=== PATIENT | female | born 1995 | race Caucasian/White ===

== ENCOUNTER 2020-09-19 14:48 | Emergency (ER) | payer BC, SELFPAY ==
[2020-09-19 15:03] VITALS: BP 121/70; PULSE 65; RESP 18; TEMP 36.8; O2SAT 99
--- NOTE | 2020-09-19 15:27 | ED.FEMALEGU ---
HPI - Female Genitourinary General Chief complaint: Urogenital-Female Stated complaint: possibe uti Source: patient and RN notes reviewed Mode of arrival: ambulatory History of Present Illness HPI Narrative: This is a 25-year-old white female who presented today with complaints of urgency, frequency and burning during urination. According to patient she has developed symptoms this morning. She normally goes to her [facility] but they closed today at 12:00. She does note that she has a history of having frequent urinary tract infections. The symptoms that she is feeling today is similar to those that she has had in the past. The patient denies SOB, CP, palpitation, extremity numbness, lightheadedness, dizziness, constipation, diarrhea, abdominal pain ,CVA tenderness , hematuria ,chills, or fever. 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 HEAD: normocephalic, atraumatic. EYES: PERRL. Sclera clear/white. Vision is grossly intact. EARS: External ears normal, auditory canals clear and without drainage, TMs normal without perforation. Hearing grossly intact. NOSE: External nose normal with no obvious nasal discharge, nares without redness, no rhinorrhea. THROAT: Mucous membranes moist, posterior pharynx clear. NECK: Neck supple, non-tender without lymphadenopathy, masses or thyromegaly. CARDIOVASCULAR: Regular rate and rhythm without murmurs, gallops, or rubs. RESPIRATORY: Clear to auscultation. Breath sounds equal bilaterally. No wheezes, rales, or rhonchi. GASTROINTESTINAL: Abdomen soft, non-tender, nondistended. Bowel sounds are active. No hepato-splenomegaly, or palpable masses. No guarding. SKIN: warm, intact with no suspicious lesions or rash, good texture and turgor. NEURO: awake, alert, and oriented to person, place and time. There were no obvious focal neurologic abnormalities. Steady gait EXTREMITIES: Normal range of motion. No edema. No calf tenderness. Negative Homans sign bilaterally. BACK: Nontender without deformity or crepitance. No flank tenderness. Course Vital Signs Vital signs: Vital Signs Temperature 98.3 F 09/19/20 15:03 Pulse Rate 65 09/19/20 15:03 Respiratory Rate 18 09/19/20 15:03 Blood Pressure 121/70 09/19/20 15:03 Pulse Oximetry 99 09/19/20 15:03 Temperature 98.3 F 09/19/20 15:03 Pulse Rate 65 09/19/20 15:03 Respiratory Rate 18 09/19/20 15:03 Blood Pressure 121/70 09/19/20 15:03 Pulse Oximetry 99 09/19/20 15:03 MDM - Female Genitourinary Differential Diagnosis Differential diagnosis: Likely urinary tract infection and vaginitis Lab Data Attestation: I reviewed the patient's lab results. Lab results narrative: Will be treated for urinary tract infection with a culture sent off Labs: Urine Glucose Negative Reference Range: Negative Urine Bilirubin Negative Reference Range: Negative Urine Ketone Negative Reference Range: Negative Urine Specific [place] 1.010
== END 2020-09-19 15:39 | disposition home or self-care (01) ==
PROVIDERS: Emergency Provider Nurse Practitioner; PCP Family Medicine
DX: N39.0 Urinary tract infection, site not specified (principal)
CPT/HCPCS: 81003; 87077; 87086; 87088; 87186; 99213; G0463

== ENCOUNTER 2020-10-09 06:54 | Outpatient (NON) | payer BC, SELFPAY ==
[2020-10-09 21:57] LABS: SARS-CoV-2 RNA PCR Negative
== END 2020-10-09 06:55 ==
PROVIDERS: PCP Family Medicine; Visit Provider Family Medicine
DX: Z20.822 Contact with and (suspected) exposure to COVID-19 (principal); J02.9 Acute pharyngitis, unspecified; R09.89 Other specified symptoms and signs involving the circulatory and respiratory systems; R51.9 Headache, unspecified
CPT/HCPCS: C9803; U0003; U0005

== ENCOUNTER 2021-05-11 19:03 | Emergency (ER) | payer OTHER, SELFPAY ==
--- NOTE | ~2021-05-11 | CT_ITS ---
EXAMINATION: CT brain wo con DATE: 05/11/2021 19:40 INDICATION: Head injury. Loss of consciousness. TECHNIQUE: Computed tomography (CT) of the head was performed without intravenous contrast. The mA wa s adjusted according to patient size. Iterative reconstruction technique was employed. The dose-lengt h product was 605.33 mGy-cm. COMPARISON: None FINDINGS: There is no intracranial hemorrhage, acute infarction, or abnormal intracranial mass lesion . The ventricles are normal in size. There is mild mucosal thickening in the ethmoid sinuses. The mas toid air cells are normal. IMPRESSION: 1. Normal brain. Reviewed, dictated and finalized at location A. IMPRESSION: 1. Normal brain.
[2021-05-11 19:04] VITALS: BP 146/84; PULSE 53; RESP 17; TEMP 36.6; O2SAT 100
--- NOTE | 2021-05-11 20:43 | ED.HEATRA ---
HPI - Head Injury General Chief complaint: Head Injury Stated complaint: FALL/+ LOC, 24 HRS AGO Time Seen by Provider: 05/11/21 20:40 History of Present Illness HPI Narrative: healthy 26 yo female presnets to the ED after a head injury. She reports that she was running backwards last night when she fell and struck the back of her head. Possible LOC. She sustained an abrasion to the back of the head. She has not been feeling like her self today. She reports headache, dizziness, mild nausea. No confusion, weakness, numbness, neck pain, back pain. Related Data Allergies Allergy/AdvReac Type Severity Reaction Status Date / Time No Known Allergies Allergy Verified 05/11/21 19:03 Review of Systems Review of Systems: All systems reviewed & are unremarkable except as noted in HPI and below Constitutional: Constitutional: Denies weakness Eyes: Eyes: Denies change in vision ENT: Reports dizziness Gastrointestinal: Gastrointestinal: Reports nausea Musculoskeletal: Musculoskeletal: Denies back pain Neurologic: Denies confusion, Reports dizziness and Denies weakness [facility] Family History Family History Grandparent Depression Other Diabetes mellitus Family history of arthritis Family history of heart disease in male family member before age 55 Hypertension Social History Social History Alcohol intake: current Alcohol use details: Occasional Substance use: never 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 Exam Const: General: healthy appearing, no acute distress and alert Orientation/consciousness: patient oriented x3 HENMT: Head: contusion right occipital Face and sinus: normal facial exam Eyes: Pupils: Equal, round and reactive pupils present EOM: EOMs intact bilaterally Neck: Neck: normal visual inspection Resp: Effort & Inspection: normal respiratory effort Cardio: Jugular venous distension: no JVD Neuro: General: patient oriented x3 and moves all extremities Speech: normal speech Extrem: General: normal to inspection Psych: Appearance: grossly normal and well kempt Mental Status: mental status grossly normal Affect: normal affect Course Vital Signs Vital signs: Vital Signs Temperature 36.6 C 05/11/21 19:04 Pulse Rate 53 L 05/11/21 19:04 Respiratory Rate 17 05/11/21 19:04 Blood Pressure 146/84 H 05/11/21 19:04 Pulse Oximetry 100 05/11/21 19:04 Temperature 36.9 C 05/11/21 21:01 Pulse Rate 66 05/11/21 21:01 Respiratory Rate 18 05/11/21 21:01 Blood Pressure 111/76 05/11/21 21:01 Pulse Oximetry 100 05/11/21 21:01 MDM - Head Injury Differential Diagnosis Differential diagnosis: Likely closed head injury Medical Records Attestation: I reviewed the patient's medical records. Imaging Data Radiologist's impression: ITS Impressions Head CT 05/11/21 19:42 IMPRESSION: 1. Normal brain. Discharge Plan Discharge Clinical Impression: Concussion Patient Disposition: Home, Self-Care Condition: Stable Instructions: Concussion (ED) Prescriptions: New ondansetron HCl [Zofran] 4 mg tablet 4 mg PO Q6H PRN (Reason: nausea and vomiting) Qty: 10 RF: 0 meclizine 25 mg tablet 25 - 50 mg PO BID PRN (Reason: dizziness) Qty: 20 RF: 0 Follow-up/Referrals: Vance Orta MD [Primary Care Provider] -
--- NOTE | 2021-05-11 20:52 | PC.NURSE ---
Patient states the incident occurred last night.
[2021-05-11 21:01] VITALS: BP 111/76; PULSE 66; RESP 18; TEMP 36.9; O2SAT 100
== END 2021-05-11 21:03 | disposition home or self-care (01) ==
PROVIDERS: Emergency Provider Emergency Medicine; PCP Family Medicine
DX: S06.0X0A Concussion without loss of consciousness, initial encounter (principal); W19.XXXA Unspecified fall, initial encounter
CPT/HCPCS: 70450; 99284

== ENCOUNTER 2021-12-30 11:09 | Emergency (ER) | payer OTHER, SELFPAY ==
--- NOTE | ~2021-12-30 | US_ITS ---
EXAMINATION: US OB <= 14 weeks fetus EXAM DATE: 12/30/2021 13:02 INDICATION: 13 weeks abd pain . Late 1st trimester. TECHNIQUE: Pelvic obstetrical transabdominal sonogram was performed by a technologist. There are mu ltiple grayscale and Doppler images available for interpretation. There are no earlier studies of th is gestation for comparison. FINDINGS: Uterus measures 12.3 x 8.2 x 9.4 cm. There is intrauterine gestation sac. pole with heart rate confirmed at 158 beats per minute. The 6.4 cm crown-rump length corresponds to estimated gestational age by ultrasound of 12 weeks 6 days, estimated date of confinement 07/08. There is no sonographic evidence of subchorionic hemorrhage. The ovaries are identified and morphologically nor mal. movement visualized. IMPRESSION: Live intrauterine gestation, age by ultrasound 12 weeks 6 days. Reviewed, dictated and finalized at location B.
[2021-12-30 11:13] VITALS: BP 124/79; PULSE 104; RESP 18; TEMP 36.5; O2SAT 97
[2021-12-30 11:33] LABS: Appearance Urine Clear (Clear); Bilirubin Urine Negative (Negative); Color Urine Yellow (Yellow); Glucose Urine UA Negative (Negative); Ketones Urine 3+ mg/dL (Negative); Leukocyte Esterase Ur Negative LEU/UL (Negative); Nitrate Urine Negative (Negative); Protein Urine Negative (Negative); Specific Grav Ur >= 1.030 (1.001-1.035); Urobilinogen Urine 0.2 mg/dL (<2.0); pH Urine 6.5 (5.0-9.0)
[2021-12-30 11:38] VITALS: BP 120/57; PULSE 56
[2021-12-30 11:39] VITALS: BP 135/77; PULSE 95
[2021-12-30 11:41] VITALS: BP 128/83; PULSE 114
[2021-12-30 11:44] LABS: Basophils Percent Auto 0.3 % (0.2-1.2); Eosinophils Percent Auto 0.1 % (0-4.4); Hematocrit 42.7 % (37.0-47.0); Hemoglobin 14.5 g/dL (12.0-15.0); Immature Granulocyte Absolute 0.04 K/mm3 (0.00-0.031); Immature Granulocyte Percent A 0.3 % (0-0.5); Lymphocytes Absolute Auto 0.65 K/mm3 (0.9-3.2); Lymphocytes Percent Auto 4.6 % (18.3-44.2); Mean Corpuscular Hemoglobin 30.5 pg (26-34); Mean Corpuscular Volume 89.7 fl (80-100); Mean Platelet Volume 11.1 fl (7.4-10.4); Monocytes Absolute Auto 0.5 K/mm3 (0.1-0.6); Monocytes Percent Auto 3.2 % (2.6-8.5); Neutrophils Percent Auto 91.5 % (45.5-73.1); Platelet Count Result 188 k/mm3 (150-375); Red Blood Count 4.76 M/mm3 (4.2-5.4); Red Cell Distribution Width 13.3 % (11.5-14.5); White Blood Count 14.2 K/mm3 (4.5-10.0)
[2021-12-30 11:48] LABS: Add Urine Microscopic? YES; Blood Urine Trace-Intact (Negative)
[2021-12-30 11:56] LABS: Bacteria Urine Trace /hpf; Mucus Urine Few /lpf; RBC Urine 0-2 /hpf (0-2); Squamous Epithelial Cell Urine Many /hpf (Few)
[2021-12-30 11:56] LABS: Alanine Aminotransferase 13 U/L (4-35); Albumin Level 4.6 g/dL (3.5-5.1); Alkaline Phosphatase 48 U/L (38-126); Anion Gap 8 mmol/L (8-16); Aspartate Amino Transferase 23 U/L (14-36); Bilirubin,Total 1.2 mg/dL (0.2-1.3); Blood Urea Nitrogen 11 mg/dL (7-17); Calcium 9.6 mg/dL (8.4-10.2); Carbon Dioxide 23 mmol/L (22-30); Chloride 105 mmol/L (98-107); Estimated CRCL calculation 96 ml/min; Estimated Glomerular Filt Rate > 60; Glucose 101 mg/dL (65-110); Lipase 42 U/L (23-300); Potassium 4.3 mmol/L (3.4-5.0); Sodium 136 mmol/L (137-145)
--- NOTE | 2021-12-30 12:14 | ED.NAVMDI ---
HPI - Nausea/Vomiting/Diarrhea General Chief complaint: Nausea/Vomiting/Diarrhea Stated complaint: vomiting, Time Seen by Provider: 12/30/21 11:59 Source: patient Mode of arrival: ambulatory Limitations: no limitations History of Present Illness HPI Narrative: Pt presents with numerous episodes of vomiting and diarhea since middle of night last night. had similar symptoms last week. Pt denies fever. Pt is 13 weeks but has not had vomiting in so far. Pt has some abdominal discomfort with voiting and some mid back pain she thinks is from retching. 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 Exam Const: General: no acute distress Orientation/consciousness: patient oriented x3 HENMT: Mouth: Yes dry mucous membranes Resp: Effort & Inspection: normal respiratory effort Auscultation: clear to auscultation bilaterally Cardio: Rate: tachycardic GI: GI Palp: Yes Soft to palpation and Yes Tenderness to palpation present (GI) (mid and lower abdomen) Auscultation: Hyperactive bowel sounds present : General: Yes no CVA tenderness Skin: General skin exam: normal color Neuro: General: patient oriented x3 and moves all extremities Extrem: General: normal to inspection and no clubbing, cyanosis or edema Psych: Appearance: grossly normal Mental Status: mental status grossly normal Thought content: Yes Normal thought content present Course Vital Signs Vital signs: Vital Signs Temperature 97.7 F 12/30/21 11:13 Pulse Rate 104 H 12/30/21 11:13 Respiratory Rate 18 12/30/21 11:13 Blood Pressure 124/79 12/30/21 11:13 Pulse Oximetry 97 12/30/21 11:13 Temperature 97.7 F 12/30/21 11:13 Pulse Rate 75 12/30/21 13:46 Respiratory Rate 20 12/30/21 13:46 Blood Pressure 105/74 12/30/21 13:46 Pulse Oximetry 100 12/30/21 13:46 MDM - Nausea/Vomiting/Diarrhea Lab Data Result diagrams: 12/30/21 11:35 12/30/21 11:35 Labs: Lab Results 12/30/21 12/30/21 12/30/21 Range/Units 11:27 11:35 11:35 WBC 14.2 H (4.5-10.0) K/mm3 RBC 4.76 (4.2-5.4) M/mm3 Hgb 14.5 (12.0-15.0) g/dL Hct 42.7 (37.0-47.0) % MCV 89.7 (80-100) fl MCH 30.5 (26-34) pg MCHC 34.0 (32-36) g/dl RDW 13.3 (11.5-14.5) % Plt Count 188 (150-375) k/mm3 MPV 11.1 H (7.4-10.4) fl Immature Gran % (Auto) 0.3 (0-0.5) % Neut % (Auto) 91.5 H (45.5-73.1) % Lymph % (Auto) 4.6 L (18.3-44.2) % [place] % (Auto) 3.2 (2.6-8.5) % Eos % (Auto) 0.1 (0-4.4) % Baso % (Auto) 0.3 (0.2-1.2) % Lymph # (Auto) 0.65 L (0.9-3.2) K/mm3 [place] # (Auto) 0.5 (0.1-0.6) K/mm3 Eos # (Auto) 0.0 (0-0.3) K/mm3 Baso # (Auto) 0.0 (0.0-0.1) K/mm3 Abs Immat Gran (auto) 0.04 H (0.00-0.031) K/mm3 Absolute Neuts (auto) 13.0 H (1.3-6.7) K/mm3 Absolute Nucleated RBC 0.0 (0.0-0.012) K/mm3 Nucleated RBC % 0.0 (0.0-0.2) % Sodium 136 L (137-145) mmol/L Potassium 4.3 (3.4-5.0) mmol/L Chloride 105 (98-107) mmol/L Carbon Dioxide 23 (22-30) mmol/L Anion Gap 8 (8-16) mmol/L BUN 11 (7-17) mg/dL Creatinine 0.60 L (0.7
[2021-12-30] MEDS: ONDANSETRON INJ 4 MG/2 ML VIAL IV PUSH (12:20)
[2021-12-30] MEDS: DEXTROSE 5%/0.9% SOD CHL 1,000 ML 999 ML IV CONT (12:23)
[2021-12-30 13:46] VITALS: BP 105/74; PULSE 75; RESP 20; O2SAT 100
== END 2021-12-30 13:47 | disposition home or self-care (01) ==
PROVIDERS: Emergency Provider Emergency Medicine
DX: K52.9 Noninfective gastroenteritis and colitis, unspecified (principal)
CPT/HCPCS: 36415; 76801; 80053; 81001; 81025; 83690; 85025; 96361; 96374; 99284; J2405; J7042

== ENCOUNTER 2022-05-06 16:45 | Outpatient (RCR) | payer OTHER, SELFPAY ==
[2022-05-06 18:03] VITALS: BP 117/69; PULSE 63
== END 2022-08-04 23:59 | disposition home or self-care (01) ==
LOC: ANHOBOP 16:45
PROVIDERS: Visit Provider Obstetrics & Gynecology
DX: O36.8130 Decreased fetal movements, third trimester, not applicable or unspecified (principal); Z3A.31 31 weeks gestation of pregnancy
CPT/HCPCS: 59025

== ENCOUNTER 2022-05-16 21:08 | Observation (INO) | payer OTHER, SELFPAY ==
--- NOTE | 2022-05-16 21:08 | OBADM ---
This patient, Natalia Bonilla, admitted to the OB room [facility] for observation. Patient/family oriented to hospital policies and general routines including ID bracelet, bed and alarms, visiting hours, pain management, procedures, bathroom and other care routines, personal items, smoking policy, room service/diet, and visiting hours. Patient/Family are encouraged to report perceived risks to care and to ask questions if they do not understand what they are told or what they should do.
[2022-05-16 21:26] VITALS: BP 116/75; PULSE 76
[2022-05-16 21:30] VITALS: BMI 29.4
[2022-05-16 21:39] LABS: Appearance Urine Slightly Cloudy (Clear); Bilirubin Urine Negative (Negative); Blood Urine Negative (Negative); Color Urine Yellow (Yellow); Glucose Urine UA Negative (Negative); Ketones Urine Negative (Negative); Leukocyte Esterase Ur 1+ LEU/UL (Negative); Nitrate Urine Negative (Negative); Protein Urine Negative (Negative); Specific Grav Ur 1.015 (1.001-1.035)
[2022-05-16 21:43] LABS: Amorphous Sediment Urine Few; Bacteria Urine Trace /hpf; Mucus Urine Rare /lpf; Squamous Epithelial Cell Urine Moderate /hpf (Few); WBC Urine 0-3 /hpf
[2022-05-16 21:45] LABS: Add Urine Microscopic? YES
--- NOTE | 2022-05-16 21:45 | PC.NURSE ---
Updated Dr. Coy on patient assessment and complaints. Patient reports active movement and denies contractions. Patient reports intermittent cramping x3 days, but states she is not presently feeling cramping. Patient reports diarrhea x1 day. UA results given. Orders received.
[2022-05-16 22:00] VITALS: TEMP 37.1
[2022-05-16 23:06] LABS: SARS-CoV-2 RNA PCR Negative
--- NOTE | 2022-05-20 07:55 | P.PNOB_ITS ---
OB - Triage/Final Diagnosis Visit Information Reason for evaluation: threatened labor Comments/Additional reasons for admission: I have assessed the risk for this patient, Natalia Bonilla, and determined that she would benefit from observation care. Evaluation Laboratory results: Laboratory Tests 05/16/22 05/16/22 21:34 22:23 Urine Color Yellow Urine Appearance Slightly cloudy Urine pH 7.0 Ur Specific [place] 1.015 Urine Protein Negative Urine Glucose (UA) Negative Urine Ketones Negative Ur Blood (Man) Negative Urine Nitrate Negative Urine Bilirubin Negative Urine Urobilinogen 1.0 Leukocyte Esterase Rfl 1+ H Urine RBC 3-5 H Urine WBC 0-3 Ur Squamous Epith Cells Moderate H Amorphous Sediment Few H Urine Bacteria Trace Urine Mucus Rare SARS-CoV-2 RNA (RT-PCR) Negative
== END 2022-05-16 22:25 | disposition home or self-care (01) ==
PROVIDERS: Obstetrics & Gynecology; Admitting Provider Obstetrics & Gynecology; Visit Provider Obstetrics & Gynecology
DX: O47.03 False labor before 37 completed weeks of gestation, third trimester (principal); O99.613 Diseases of the digestive system complicating pregnancy, third trimester; K59.1 Functional diarrhea; Z3A.32 32 weeks gestation of pregnancy; Z20.822 Contact with and (suspected) exposure to COVID-19
CPT/HCPCS: 81001; C9803; G0378; G0379; U0003; U0005

== ENCOUNTER 2022-06-23 20:57 | Outpatient (CLI) | payer BC, OTHER, SELFPAY ==
--- NOTE | 2022-06-24 05:30 | PM.OBTRLD ---
OB - Triage/Final Diagnosis Visit Information Date of evaluation: 06/23/22 Reason for evaluation: other (Leaking fluid) Comments/Additional reasons for admission: I have assessed the risk for this patient, Natalia Bonilla, and determined that she would benefit from observation care.
== END 2022-06-23 21:45 | disposition home or self-care (01) ==
LOC: ANHOBOP 21:43 → ANHLDR 21:44
PROVIDERS: Visit Provider Obstetrics & Gynecology
DX: O41.8X90 Other specified disorders of amniotic fluid and membranes, unspecified trimester, not applicable or unspecified (principal); Z3A.00 Weeks of gestation of pregnancy not specified
CPT/HCPCS: 59025; 84112; 99199

== ENCOUNTER 2022-06-30 15:56 | Inpatient (IN) | payer BC, OTHER, SELFPAY ==
[2022-06-30] VITALS (13 sets, daily range): BP systolic 122–139; BP diastolic 49–87; PULSE 59–78; TEMP 36.8; O2SAT 97–99; BMI 33.0
[2022-06-30 17:08] LABS: Basophils Percent Auto 0.2 % (0.2-1.2); Eosinophils Absolute Auto 0.1 K/mm3 (0-0.3); Eosinophils Percent Auto 0.8 % (0-4.4); Hematocrit 31.2 % (37.0-47.0); Hemoglobin 9.8 g/dL (12.0-15.0); Immature Granulocyte Absolute 0.05 K/mm3 (0.00-0.031); Immature Granulocyte Percent A 0.5 % (0-0.5); Lymphocytes Absolute Auto 2.03 K/mm3 (0.9-3.2); Lymphocytes Percent Auto 19.3 % (18.3-44.2); Mean Corpuscular HGB Conc 31.4 g/dl (32-36); Mean Corpuscular Hemoglobin 27.3 pg (26-34); Mean Corpuscular Volume 86.9 fl (80-100); Monocytes Absolute Auto 0.6 K/mm3 (0.1-0.6); Monocytes Percent Auto 6.1 % (2.6-8.5); Neutrophils Absolute Auto 7.7 K/mm3 (1.3-6.7); Neutrophils Percent Auto 73.1 % (45.5-73.1); Platelet Count Result 198 k/mm3 (150-375); Red Blood Count 3.59 M/mm3 (4.2-5.4); Red Cell Distribution Width 14.3 % (11.5-14.5); White Blood Count 10.5 K/mm3 (4.5-10.0)
[2022-06-30] MEDS: DINOPROSTONE 10 MG VAG INSERT VAGINAL (17:13)
[2022-06-30 17:24] LABS: Alanine Aminotransferase 18 U/L (6-35); Albumin Level 3.6 g/dL (3.5-5.1); Alkaline Phosphatase 194 U/L (38-126); Anion Gap 7 mmol/L (8-16); Aspartate Amino Transferase 30 U/L (14-36); Bilirubin,Total 0.5 mg/dL (0.2-1.3); Blood Urea Nitrogen 9 mg/dL (7-17); Calcium 9.5 mg/dL (8.4-10.2); Carbon Dioxide 22 mmol/L (22-30); Chloride 104 mmol/L (98-107); Estimated CRCL calculation 103 ml/min; Estimated Glomerular Filt Rate > 60; Glucose 80 mg/dL (65-110); Potassium 4.2 mmol/L (3.4-5.0); Sodium 133 mmol/L (137-145); Uric Acid 3.2 mg/dL (2.5-7.5)
[2022-06-30] MEDS: LACTATED RINGERS 1,000 ML 125 ML IV CONT ×2 (19:06→20:44)
[2022-06-30] MEDS: fentaNYL CITRATE INJ (*CRX) 100 MCG/2 ML VIAL 50 MCG IV PUSH ×2 (19:12→21:38)
--- NOTE | 2022-06-30 20:19 | WPDANESEPP ---
Anes - Eval Pre Procedure Procedure: Labor epidural Date/Time: 06/30/22 20:19 Surgeon: Cj Preop Diagnosis: Abd pain with contractions Pre Op Diagnosis: Induction of Labor Patient Data Age: 27 Gender: F Height: 1.57 m Weight: 82 kg Last Vital Signs Temp 98.2 F 06/30/22 17:00 Pulse 66 06/30/22 20:01 BP 132/49 L 06/30/22 20:01 O2 Del Method Room Air 06/30/22 16:54 Allergies Allergy/AdvReac Type Severity Reaction Status Date / Time No Known Allergies Allergy Verified 05/16/22 23:39 Home Medications Medication Instructions Recorded Confirmed Type No Home Medications 05/16/22 06/18/22 History Laboratory Tests 06/30/22 06/30/22 06/30/22 16:45 16:45 16:45 WBC 10.5 K/mm3 H K/mm3 (4.5-10.0) RBC 3.59 M/mm3 L M/mm3 (4.2-5.4) Hgb 9.8 g/dL L D g/dL (12.0-15.0) Hct 31.2 % L % (37.0-47.0) MCV 86.9 fl fl (80-100) MCH 27.3 pg pg (26-34) MCHC 31.4 g/dl L g/dl (32-36) RDW 14.3 % % (11.5-14.5) Plt Count 198 k/mm3 k/mm3 (150-375) MPV 13.0 fl H fl (7.4-10.4) Immature Gran % (Auto) 0.5 % % (0-0.5) Neut % (Auto) 73.1 % % (45.5-73.1) Lymph % (Auto) 19.3 % % (18.3-44.2) [place] % (Auto) 6.1 % % (2.6-8.5) Eos % (Auto) 0.8 % % (0-4.4) Baso % (Auto) 0.2 % % (0.2-1.2) Lymph # (Auto) 2.03 K/mm3 K/mm3 (0.9-3.2) [place] # (Auto) 0.6 K/mm3 K/mm3 (0.1-0.6) Eos # (Auto) 0.1 K/mm3 K/mm3 (0-0.3) Baso # (Auto) 0.0 K/mm3 K/mm3 (0.0-0.1) Abs Immat Gran (auto) 0.05 K/mm3 H K/mm3 (0.00-0.031) Absolute Neuts (auto) 7.7 K/mm3 H K/mm3 (1.3-6.7) Absolute Nucleated RBC 0.0 K/mm3 K/mm3 (0.0-0.012) Nucleated RBC % 0.0 % % (0.0-0.2) Sodium Potassium Chloride Carbon Dioxide Anion Gap BUN Creatinine Estim Creat Clear Calc Estimated GFR Glucose Uric Acid Calcium Total Bilirubin AST ALT Alkaline Phosphatase Total Protein Albumin RPR Pending Blood Type O Positive Antibody Screen Negative 06/30/22 16:45 WBC RBC Hgb Hct MCV MCH MCHC RDW Plt Count MPV Immature Gran % (Auto) Neut % (Auto) Lymph % (Auto) [place] % (Auto) Eos % (Auto) Baso % (Auto) Lymph # (Auto) [place] # (Auto) Eos # (Auto) Baso # (Auto) Abs Immat Gran (auto) Absolute Neuts (auto) Absolute Nucleated RBC Nucleated RBC % Sodium 133 mmol/L L mmol/L (137-145) Potassium 4.2 mmol/L mmol/L (3.4-5.0) Chloride 104 mmol/L mmol/L (98-107) Carbon Dioxide 22 mmol/L mmol/L (22-30) Anion Gap 7 mmol/L L mmol/L (8-16) BUN 9 mg/dL mg/dL (7-17) Creatinine 0.70 mg/dL mg/dL (0.7-1.0) Estim Creat Clear Calc 103 ml/min ml/min Estimated GFR > 60 (59 - ) Glucose 80 mg/dL mg/dL (65-110) Uric Acid 3.2 mg/dL mg/dL (2.5-7.5) Calcium 9.5 mg/dL mg/dL (8.4-10.2) Total Bilirubin 0.5 mg/dL mg/dL (0.2-1.3) AST 30 U/L U/L (14-36) ALT 18 U/L U/L (6-35) Alkaline Phosphatase 194 U/L H U/L (38-126) Total Protein 7.0 g/dL g/dL (6.3-8.2) Albumin 3.6 g/dL g/dL (3.5-5.1) RPR Blood Type Antibody Screen Patient hx anesthesia problems: none Family hx anesthesia problems: none Results Review: All pre-operative results and documents have been reviewed as part of the pre-operative evaluation. [facility] Past Medical History Medical History De
[2022-07-01] VITALS (243 sets, daily range): BP systolic 90–159; BP diastolic 49–134; PULSE 40–162; RESP 12–18; TEMP 36.5–37.3; O2SAT 84–100
[2022-07-01] MEDS: OXYTOCIN 30 UNITS/NS 500 ML 30 UNITS/500 ML BAG IV CONT (00:29)
--- NOTE | 2022-07-01 07:39 | PM.IMHP ---
H&P: HPI History of Present Illness Date/Time: 07/01/22 07:39 Chief Complaint: Induction of labor at Narrative: this is a 27-year-old 1 para 0 whose last menstrual period 10/02/2021, EDC is 07/08/2022, presents at 39 weeks gestation for induction of labor secondary to elevated blood pressures. 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 identity (if verbalized by the patient): Female Spiritual care concerns: No Meds Home Medications and Allergies Home Medications Medication Instructions Recorded Confirmed Type No Home Medications 05/16/22 06/18/22 History Allergies Allergy/AdvReac Type Severity Reaction Status Date / Time No Known Allergies Allergy Verified 05/16/22 23:39 Vital Signs Vital Signs - 24 hr 06/30/22 16:54 06/30/22 17:01 06/30/22 17:00 Temperature 98.2 F Pulse Rate 67 Blood Pressure 125/87 Pulse Oximetry Oxygen Delivery Room Air 06/30/22 17:31 06/30/22 18:01 06/30/22 18:31 Temperature Pulse Rate 63 59 L 61 Blood Pressure 122/79 132/78 133/75 Pulse Oximetry Oxygen Delivery 06/30/22 19:01 06/30/22 19:31 06/30/22 20:01 Temperature Pulse Rate 74 68 66 Blood Pressure 128/77 139/78 132/49 L Pulse Oximetry Oxygen Delivery 06/30/22 20:39 06/30/22 21:42 06/30/22 21:47 Temperature Pulse Rate 78 Blood Pressure 127/85 Pulse Oximetry 99 98 Oxygen Delivery 06/30/22 21:52 06/30/22 21:57 07/01/22 00:22 Temperature Pulse Rate 56 L Blood Pressure 142/81 H Pulse Oximetry 97 98 Oxygen Delivery 07/01/22 02:04 07/01/22 02:27 07/01/22 02:29 Temperature Pulse Rate 40 L 134 H Blood Pressure 150/80 H 135/67 Pulse Oximetry 100 Oxygen Delivery 07/01/22 02:30 07/01/22 02:32 07/01/22 02:33 Temperature Pulse Rate 73 71 68 Blood Pressure 111/94 H 124/101 H 129/53 L Pulse Oximetry 100 Oxygen Delivery 07/01/22 02:35 07/01/22 02:37 07/01/22 02:39 Temperature Pulse Rate 88 58 L 59 L Blood Pressure 103/78 122/68 124/67 Pulse Oximetry 100 Oxygen Delivery 07/01/22 02:41 07/01/22 02:42 07/01/22 02:43 Temperature Pulse Rate 63 57 L Blood Pressure 129/61 121/65 Pulse Oximetry 100 Oxygen Delivery 07/01/22 02:45 07/01/22 02:47 07/01/22 02:49 Temperature Pulse Rate 56 L 52 L 54 L Blood Pressure 124/68 126/69 125/70 Pulse Oximetry 100 Oxygen Delivery 07/01/22 02:51 07/01/22 02:52 07/01/22 02:57 Temperature Pulse Rate 62 Blood Pressure 122/79 Pulse Oximetry 100 100 Oxygen Delivery 07/01/22 03:01 07/01/22 03:02 07/01/22 03:07 Temperature Pulse Rate 57 L Blood Pressure 125/68 Pulse Oximetry 100 100 Oxygen Delivery 07/01/22 03:11 07/01/22 03:12 07/01/22 03:17 Temperature Pulse Rate 62 Blood Pressure 120/75 Pulse Oximetry 100 100 Oxygen Delivery 07/01/22 03:21 07/01/22 03:22 07/01/22 03:27 Temperature Pulse Rate 54 L Blood Pressure 126/88 Pulse Oximetry 99 99 Oxygen Delivery 07/01/22 03:31 07/01/22 03:32 07/01/22 03:37 Temperature Pulse Rate 56 L Blood Pressure 125/79 Pulse Ox
[2022-07-01 10:30] LABS: Rapid Plasma Reagin Non-Reactive (NonReactive)
[2022-07-01] MEDS: LACTATED RINGERS 1,000 ML 125 ML IV CONT ×2 (11:00→17:00)
[2022-07-01] MEDS: CALCIUM CARBONATE (TUMS) 500 MG (200 MG ELEMENTAL) PO (15:10)
[2022-07-01] MEDS: diphenhydrAMINE HCl INJ 50 MG/ML VIAL 25 MG IV PUSH (15:10)
--- NOTE | 2022-07-01 16:17 | PM.OBPNLAB ---
Pain Control Date/time seen: 07/01/22 16:17 Pain control: tolerating well and epidural Pelvic Exam Dilation (cm): 8 station: -2 Amniotic membrane status: Leaking
--- NOTE | 2022-07-01 17:12 | WPDHPUPDATE1 ---
History and Physical Update Update Date/Time: 07/01/22 17:12 History and Physical has been reviewed, including an updated exam of the patient. There are NO changes in the patient's condition. Risks, benefits, and alternatives have been discussed and questions answered. Patient agrees to proceed with procedure.
--- NOTE | 2022-07-01 17:12 | PM.OBPNLAB ---
Pain Control Date/time seen: 07/01/22 17:12 Pain control: tolerating well and epidural Comments: no change offered ltcs. risks/benefits Pelvic Exam Dilation (cm): 8 station: -2 Amniotic membrane status: Leaking
[2022-07-01] MEDS: ceFAZolin 2 GM/D5W 50 ML 2 GM/50 ML BAG IVPB (17:35)
[2022-07-01] MEDS: KETOROLAC 15 MG/ML VIAL (*BKC) IV PUSH (18:05)
--- NOTE | 2022-07-01 18:19 | W.PM.PROC2 ---
Procedure Note - Detailed Date of Procedure 07/01/22 Pre-op Diagnosis Induction of LaborFailure to progress Post-op Diagnosis Same Procedure Performed primary low transverse section Surgeon Kavin Cespedes MD Anesthesia Epidural Indications / 27-year-old female who was admitted for gestational hypertension at term if she had to 8cm head in [facility] present and was able to get any further. She was offered low-transverse section and agreed after informed consent Findings male 7lb 8oz in the LOP position Apgars 895minutes respectively Description of Procedure patient was taken back and prepped draped in normal sterile fashion placed in the supine position. Under excellent epidural anesthesia the abdomen is entered in Pfannenstiel fashion progressive layers to fascia. Fascia incised midline cure number round fashion bilaterally. Underlying muscles sharply dissected parietal peritoneum 0 by [place] clamp straight this was carried superiorly and inferiorly the dome of the bladder bladder blade placed and bladder flap formed. Bladder blade returned a low transverse incision made the head delivered the LOP position anterior posterior shoulder delivered spontaneously nuchal cord checked noted be to loose x1 we rolled 3oz with anterior posterior shoulder delivered spontaneously. Cord clamped x2 and cut infant passed off the table excellent cry. Placenta delivered intact manually. Uterus delivered on the abdomen wrapped in moist towel. After assuring no membranes or debris remained in the uterus, the uterus was closed with continuous running locking 0 Vicryl lateral edge followed by a 2nd imbricating running locking Vicryl lateral edge to lateral edge. Hemostasis assured the ovaries and tubes appeared within normal limits in the uterus returned the abdomen. Laps removed and accounted for and hysterotomy incision inspected 1 last time noted hemostatic. The fascia was closed with continuous running 0 Vicryl from lateral edge to midline bilaterally. Irrigation subcutaneous layer and the skin closed with 4 Monocryl glue per patient was awake was taken to recovery in satisfactory condition. All sponge, needle, instrument counts were correct. There were no immediate Estimated Blood Loss 555 Drains No Packing No Pathology None sent Complications No immediate complications Condition Stable Disposition Floor
[2022-07-02] MEDS: IBUPROFEN 600 MG TABLET PO ×4 (01:05→21:25)
[2022-07-02] MEDS: HYDROcodone/acetaminophen (*CRX) 5-325 MG TABLET 1 TAB PO ×4 (01:05→21:25)
[2022-07-02 05:00] VITALS: BP 119/69; PULSE 79; RESP 16; TEMP 36.8
[2022-07-02 05:16] LABS: Basophils Percent Auto 0.3 % (0.2-1.2); Eosinophils Absolute Auto 0.1 K/mm3 (0-0.3); Eosinophils Percent Auto 0.6 % (0-4.4); Hematocrit 26.5 % (37.0-47.0); Hemoglobin 8.2 g/dL (12.0-15.0); Immature Granulocyte Absolute 0.08 K/mm3 (0.00-0.031); Immature Granulocyte Percent A 0.5 % (0-0.5); Lymphocytes Absolute Auto 1.93 K/mm3 (0.9-3.2); Lymphocytes Percent Auto 12.5 % (18.3-44.2); Mean Corpuscular HGB Conc 30.9 g/dl (32-36); Mean Corpuscular Hemoglobin 27.1 pg (26-34); Mean Corpuscular Volume 87.5 fl (80-100); Monocytes Absolute Auto 0.8 K/mm3 (0.1-0.6); Monocytes Percent Auto 5.3 % (2.6-8.5); Neutrophils Absolute Auto 12.5 K/mm3 (1.3-6.7); Neutrophils Percent Auto 80.8 % (45.5-73.1); Platelet Count Result 142 k/mm3 (150-375); Red Blood Count 3.03 M/mm3 (4.2-5.4); Red Cell Distribution Width 14.6 % (11.5-14.5); White Blood Count 15.5 K/mm3 (4.5-10.0)
--- NOTE | 2022-07-02 07:55 | PM.OBPNVD ---
OB - PN: Subj Subjective Date/time seen: 07/02/22 07:55 Patient comments: no complaints and pain well controlled baby status: doing well OB - PN: Obj Data Labs CBC & Chem 7: 07/02/22 05:09 06/30/22 16:45 Labs: Laboratory Results - last 24 hr 06/30/22 07/02/22 16:45 05:09 WBC 15.5 H RBC 3.03 L Hgb 8.2 L Hct 26.5 L MCV 87.5 MCH 27.1 MCHC 30.9 L RDW 14.6 H Plt Count 142 L MPV 12.0 H Immature Gran % (Auto) 0.5 Neut % (Auto) 80.8 H Lymph % (Auto) 12.5 L [place] % (Auto) 5.3 Eos % (Auto) 0.6 Baso % (Auto) 0.3 Lymph # (Auto) 1.93 [place] # (Auto) 0.8 H Eos # (Auto) 0.1 Baso # (Auto) 0.0 Abs Immat Gran (auto) 0.08 H Absolute Neuts (auto) 12.5 H Absolute Nucleated RBC 0.0 Nucleated RBC % 0.0 RPR Non-reactive OB - PN A/P Plan day: 1 Time Spent With Patient Time: Total time spent is greater than 50% in coordination of care (as documented) at patient's floor/unit and/or counseling patient: Time with patient: less than 15 minutes Exam Const: General: cooperative, healthy appearing and comfortable Resp: Effort & Inspection: normal respiratory effort GI: Inspection: normal to inspection
--- NOTE | 2022-07-02 08:02 | WPDANLDNPN2 ---
Anes-Prog Note L&D-Neuraxial Date/Time: 07/02/22 08:02 Patient feedback: Patient satisfied with post-operative pain management.
--- NOTE | 2022-07-02 08:02 | WPDANLDPN2 ---
Anes-Prog Note L&D Date/Time: 07/02/22 08:02 Neuro status: Neuro function grossly intact. Vital Signs: Last Vital Signs Temp 36.8 C 07/02/22 05:00 Pulse 79 07/02/22 05:00 Resp 16 07/02/22 05:00 BP 119/69 07/02/22 05:00 Pulse Ox 100 07/01/22 19:22 O2 Del Method Room Air 07/01/22 07:30 Pain score (VAS): 0 I/O: Intake & Output 07/01/22 07/02/22 07/02/22 23:59 07:59 15:59 Intake Total 1500 2000 Output Total 900 4100 Balance 600 -2100 Patient feedback: Patient satisfied with anesthetic care.
[2022-07-02] MEDS: MULTIVIT/MIN/PREN/FOL AC/IRON TABLET 1 TAB PO (08:36)
[2022-07-02] MEDS: DOCUSATE SODIUM 100 MG CAPSULE PO ×2 (08:36→15:44)
[2022-07-02] MEDS: POLYSACCHARIDE IRON COMPLEX 150 MG CAPSULE PO ×2 (08:37→15:44)
[2022-07-02 08:43] VITALS: BP 118/62; PULSE 68; RESP 18; TEMP 36.9; O2SAT 68
[2022-07-02] MEDS: HYDROcodone/acetaminophen (*CRX) 10-325 MG TABLET 1 TAB PO (12:05)
--- NOTE | 2022-07-02 12:19 | PC.NURSE ---
[id number] Introductions were made, then consulted with patient to assess needs related to . Mother led the conversation with her?plans to feed?her infant and the?experience so far. Resources provided for inpatient and outpatient services using a resource guide and mom/baby guide. Mother voiced understanding of information and requests assistance with her on latching. Mother works well with her with encouragement and education. Encouraged understanding of the benefits of skin to skin (unwrapping infant and placing vertically on her chest), responsive feeding and how to watch for early feeding signs, frequency of feeding on demand about every 8-12 times in 24 hours (every 2-3 hours), milk production, duration of feeding, signs of adequate intake/output and how to record on the feeding sheet. Infant given skin to skin time to learn mother's chest and mother to visualize 's instincts for . Reviewed positioning and ear, shoulder, hip alignment, supporting the breast with a sandwich hold, asymmetrical latch (off-center), and leading with the chin with a big, open, wide gape. Infant latched optimally to the left breast in cross cradle position. Education given to mother of how to visualize suck/swallow ratios and listening for drinking at the breast. was able to maintain latch without discomfort to mother for 10-15 minutes. Nipple care reviewed with optimal latch and good positioning. placed upright on mother's chest for skin to skin, then once feeding cues were seen infant was encouraged to the right breast using cross cradle positioning. Infant open with a big wide gape but doesn't suck. After a while moves head around with a big open mouth looking for the breast, is given a mouthful of breast, then at times will suck a few times and stops, or no sucking at all. Mother states RN provided a bottle this morning related to crying and not latching. Infant is not demonstrating feeding cues at this time. Reviewed education of skin to skin, watching for feeding cues, then calling for assistance on working with infant to latch 2-3 hours from the start of this feeding. Resources used to facilitate learning were used with the tool and mom and baby guide. Mother voiced understanding of responsive feedings, stimulating with skin to skin, hand expressed colostrum, massage touch, talking to to encourage if it has been 2 -3 hours since the start of the last , to call if does not wake to latch, or if there is discomfort with . Reported to the primary RN.
[2022-07-02 13:00] VITALS: BP 124/73; PULSE 77; RESP 18; TEMP 36; O2SAT 99
[2022-07-02 15:30] VITALS: BP 131/77; PULSE 80; RESP 16; TEMP 36.4; O2SAT 100
[2022-07-02] MEDS: TETANUS,DIPHTHERIA,AC PERTUSSIS ADULT (0.5 ML) BOOSTRIX IM (15:46)
[2022-07-02 21:37] VITALS: BP 127/79; PULSE 69; RESP 16; TEMP 36.3
[2022-07-03] MEDS: HYDROcodone/acetaminophen (*CRX) 5-325 MG TABLET 1 TAB PO ×3 (02:35→20:13)
--- NOTE | 2022-07-03 06:48 | PM.OBPNVD ---
OB - PN: Subj Subjective Date/time seen: 07/03/22 06:48 Patient comments: no complaints and pain well controlled baby status: doing well and nursing well OB - PN: Obj Data Labs CBC & Chem 7: 07/02/22 05:09 06/30/22 16:45 OB - PN A/P Plan day: 2 Plan: routine care Time Spent With Patient Time: Total time spent is greater than 50% in coordination of care (as documented) at patient's floor/unit and/or counseling patient: Time with patient: less than 15 minutes Exam Const: General: cooperative, healthy appearing and comfortable Nutritional Appearance: average body habitus Orientation/consciousness: oriented to person, oriented to place and oriented to time Resp: Effort & Inspection: normal respiratory effort GI: Inspection: normal to inspection and incision ( Wound is clean dry and intact)
--- NOTE | 2022-07-03 06:51 | P.DS_ITS ---
DS: Admitting Diagnosis Discharge Date 07/04/2022 Admitting Diagnosis term gestational hypertension DS: Discharge Diagnosis Discharge Diagnosis (1) Gestational hypertension: Code(s): O13.9 - Gestational [-induced] hypertension without significant proteinuria, unspecified trimester Status: Acute (2) Term : Code(s): Z34.90 - Encounter for supervision of normal , unspecified, unspecified trimester Status: Acute DS: Summary Hospital Course Reason for hospitalization: the patient was admitted at term for induction of labor secondary to elevated blood pressures Hospital Course: as noted the patient was admitted for induction of labor but failed to progress. She underwent low-transverse section. Her blood pressures remained very stable . Her incision remained clean dry and intact. She was up, voiding without difficulty, ambulating, eating regular diet, breast- feeding, generally without complaints. Time Spent with Patient Time attestation: Total time spent providing and/or coordinating discharge services: Exam Const: General: cooperative, healthy appearing and comfortable Orientation/consciousness: oriented to person, oriented to place and oriented to time HENMT: Head: normal to inspection Resp: Effort & Inspection: normal respiratory effort GI: Inspection: incision ( is clean dry and intact) Discharge Plan Discharge Attending physician on discharge: Kavin Deluca Discharging Clinician: Kavin Deluca Patient Disposition: Home, Self-Care Activity: may shower, no straining and pelvic rest Diet: heart healthy Wound Care Instructions: follow printed instructions Patient Instructions: Antibiotic Form Stand Alone Forms: General Discharge Information Follow-up/Referrals: Kavin Deluca MD [Physician] - Discharge Medications: New hydrocodone-acetaminophen 5-325 mg tablet 1 tablet PO Q4H PRN (Reason: pain) Qty: 30 0RF No Action No Home Medications Date of admission: 06/30/22 15:56 Primary Care Provider: UNKNOWN,DOCTOR Admitting Provider: Kavin Deluca Attending physician on admission: Kavin Deluca Condition: Stable
[2022-07-03 07:45] VITALS: BP 129/84; PULSE 88; RESP 18; TEMP 36.3; O2SAT 100
[2022-07-03 08:00] VITALS: PULSE 69; RESP 16; O2SAT 100
[2022-07-03] MEDS: HYDROcodone/acetaminophen (*CRX) 10-325 MG TABLET 1 TAB PO (08:42)
[2022-07-03] MEDS: IBUPROFEN 600 MG TABLET PO ×2 (08:43→16:47)
[2022-07-03] MEDS: POLYSACCHARIDE IRON COMPLEX 150 MG CAPSULE PO ×2 (08:43→16:48)
[2022-07-03] MEDS: MULTIVIT/MIN/PREN/FOL AC/IRON TABLET 1 TAB PO (08:44)
[2022-07-03] MEDS: DOCUSATE SODIUM 100 MG CAPSULE PO ×2 (08:44→16:48)
--- NOTE | 2022-07-03 14:08 | PC.NURSE ---
[id number] - Consult with mother to assess her experience with . Primary RN is present. Mother is encouraged to unwrap her , stimulate to wake and feed with skin to skin using massage touch. Mother voiced calling for assistance if her doesn't wake to breastfeed or there is discomfort with . [phone] RN assisted patient with her Spectra pump to discuss care, usage, and stimulating for good milk supply. Mom/baby resource guide referred to as an additional resource. Mother voiced information shared was understood.
[2022-07-03 18:55] VITALS: BP 137/83; PULSE 75; RESP 16; TEMP 36.7; O2SAT 98
[2022-07-04] MEDS: HYDROcodone/acetaminophen (*CRX) 5-325 MG TABLET 1 TAB PO (01:07)
--- NOTE | 2022-07-04 07:48 | P.PNOB_ITS ---
OB - PN: Subj Subjective Date/time seen: 07/04/22 07:48 Patient comments: no complaints and pain well controlled baby status: doing well and nursing well OB - PN: Obj Data Labs CBC & Chem 7: 07/02/22 05:09 06/30/22 16:45 OB - PN A/P Plan day: 3 Plan: routine care, discharge home and follow up 6 weeks ( 4 weeks) Time Spent With Patient Time: Total time spent is greater than 50% in coordination of care (as documented) at patient's floor/unit and/or counseling patient: Time with patient: less than 15 minutes Exam Const: General: cooperative, healthy appearing and comfortable Leonidas entation/consciousness: oriented to person, oriented to place and oriented to time HENMT: Head: normal to inspection Resp: Effort & Inspection: normal respiratory effort GI: Inspection: normal to inspection and incision ( wound is clean dry and intact)
[2022-07-04 08:00] VITALS: BP 130/94; PULSE 68; RESP 16; TEMP 36.7; O2SAT 99
[2022-07-04] MEDS: POLYSACCHARIDE IRON COMPLEX 150 MG CAPSULE PO (10:02)
[2022-07-04] MEDS: DOCUSATE SODIUM 100 MG CAPSULE PO (10:03)
[2022-07-04] MEDS: MULTIVIT/MIN/PREN/FOL AC/IRON TABLET 1 TAB PO (10:03)
[2022-07-04] MEDS: ACETAMINOPHEN 325 MG TABLET 650 MG PO (10:03)
[2022-07-07 11:35] VITALS: BP 119/81; PULSE 91; RESP 16; TEMP 36.7; O2SAT 100
== END 2022-07-04 16:24 | disposition home or self-care (01) | DRG 788 ==
LOC: ANHLDR 16:08 → ANHOB2 07-01 20:52
PROVIDERS: Admitting Provider Obstetrics & Gynecology; Visit Provider Obstetrics & Gynecology
PROC: 10D00Z1 Extraction of Products of Conception, Low, Open Approach (ICD-10-PCS; CPT 59514; principal; 2022-07-01 17:35)
DX: O62.0 Primary inadequate contractions (principal); O13.4 Gestational [pregnancy-induced] hypertension without significant proteinuria, complicating childbirth; O69.81X0 Labor and delivery complicated by cord around neck, without compression, not applicable or unspecified; O76 Abnormality in fetal heart rate and rhythm complicating labor and delivery; Z3A.39 39 weeks gestation of pregnancy; Z37.0 Single live birth
CPT/HCPCS: 36415; 80053; 84112; 84550; 85025; 86592; 86850; 86900; 86901; 90715; A9270; J0690; J1200; J1885; J2274; J2370; J2405; J2590; J2795; J3010; J7120

== ENCOUNTER 2022-12-02 16:14 | Emergency (ER) | payer BC, MEDICAID, SELFPAY ==
--- NOTE | 2022-12-02 16:22 | ED.URI ---
HPI - URI/Sore Throat General Chief Complaint: Upper Respiratory Infection Stated Complaint: sore throat, strep test Time Seen by Provider: 12/02/22 16:20 Source: patient and RN notes reviewed History of Present Illness HPI Narrative: Patient is a 27-year-old female who presents to urgent care with complaints of a sore throat that started yesterday. Patient states that 2 of her children both have strep as well. Denies any fever, nausea or vomiting. Patient has not taken anything [id number] for her symptoms. No other acute complaints. No acute distress noted. Patient aware of the plan of care. Some parts of this dictation were generated by voice recognition software and may contain typographical and/or grammatical inaccuracies. Related Data Home Medications Medication Instructions Recorded Confirmed bupropion HCl 150 mg 24 hr tablet, 150 mg PO DAILY 12/02/22 12/02/22 extended release Allergies Allergy/AdvReac Type Severity Reaction Status Date / Time No Known Allergies Allergy Verified 12/02/22 16:38 Review of Systems Review of Systems: CONSTITUTIONAL: Denies fever, chills, or sweats. EYES: Denies visual changes, redness, or discharge. ENT: Denies rhinorrhea, congestion, or otalgia. Reports of sore throat CARDIOVASCULAR: Denies chest pain, palpitations, or edema. RESPIRATORY: Denies cough or dyspnea. GASTROINTESTINAL: Denies abdominal pain, nausea, vomiting, or diarrhea. GENITOURINARY: Denies dysuria or hematuria. SKIN: Denies rash or itching. MUSCULOSKELETAL: Denies back pain, joint pain, or myalgia. NEUROLOGIC: Denies headache, numbness, or weakness. All other systems reviewed are negative, except as documented in HPI. 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 There is no relevant family history pertinent to the patient complaint. Exam Narrative: GENERAL: This is a well-nourished, well-developed patient, in no apparent distress. HEAD: normocephalic, atraumatic. EYES: PERRL. Sclera clear/white. Vision is grossly intact. EARS: External ears normal, auditory canals clear and without drainage, TMs normal without perforation. Hearing grossly intact. NOSE: External nose normal with no obvious nasal discharge, nares without redness, no rhinorrhea. THROAT: Mucous membranes moist, mild to moderate erythema to posterior oropharynx without exudate or ulceration. Mild postnasal drainage. NECK: Neck supple RESPIRATORY: Clear to auscultation. Breath sounds equal bilaterally. No wheezes, rales, or rhonchi. SKIN: warm, intact with no suspicious lesions or rash, good texture and turgor. NEURO: awake, alert, and oriented to person, place and time. There were no obvious focal neurologic abnormalities. EXTREMITIES: No clubbing, cyanosis, or edema. Course Course Level of Care: Express Care Visit Vital Signs Vital signs: Vital Signs Temperature 98.5 F 12/02/22 16:29 Pulse Rate 76 12/02/22 16:29 Respiratory Rat
[2022-12-02 16:29] VITALS: BP 116/76; PULSE 76; RESP 20; TEMP 36.9; O2SAT 98
== END 2022-12-02 16:55 | disposition home or self-care (01) ==
PROVIDERS: Emergency Provider Nurse Practitioner Family
DX: J02.0 Streptococcal pharyngitis (principal)
CPT/HCPCS: 87880; 99213; G0463

== ENCOUNTER 2023-04-12 08:05 | Emergency (ER) | payer BC, SELFPAY ==
--- NOTE | 2023-04-12 08:13 | ED.URI ---
HPI - URI/Sore Throat General Chief Complaint: Upper Respiratory Infection Stated Complaint: throat issue Time Seen by Provider: 04/12/23 08:23 History of Present Illness HPI Narrative: 28-year-old female with a history of recurrent tonsillar stones presented for complaint of right-sided throat pain for 3 days. Reports painful swallow. She is maintaining secretions. At the onset she took allergy medication without relief. She pressed out multiple stones from the right tonsil last night. She provided pictures which showed several large stones. She is scheduled with ENT in 2 days for the recurrent stones. States she has been staying hydrated and gargling warm saltwater. Related Data Home Medications Medication Instructions Recorded Confirmed No Home Medications 04/12/23 04/12/23 Allergies Allergy/AdvReac Type Severity Reaction Status Date / Time No Known Allergies Allergy Verified 04/12/23 08:10 Review of Systems Review of Systems: CONSTITUTIONAL: Denies body aches, fever, chills, or sweats. EYES: Denies visual changes, redness, or discharge. ENT: Reports tonsil stones and throat pain Denies rhinorrhea, congestion, or otalgia. CARDIOVASCULAR: Denies chest pain, palpitations, or edema. RESPIRATORY: Denies dyspnea. GASTROINTESTINAL: Denies abdominal pain, nausea, vomiting, or diarrhea. SKIN: Denies rash, itching, or wounds. MUSCULOSKELETAL: Denies back pain, or myalgia. 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 EYES: conjunctivae clear ENT: Mucous membranes moist. TMs pearly guido with normal light reflex bilaterally; no tragal tenderness. Oropharynx not erythematous without lesions, tonsillar enlargement or exudate. No drooling, no hoarseness, no trismus, uvula midline. No tripod positioning, hot potato voice, or soft palate swelling. NECK: Supple. No lymphadenopathy CHEST: Clear to auscultation, breath sounds equal. No respiratory distress, speaks in full sentences. HEART: Regular rate and rhythm. No murmur heard. SKIN: Warm, dry, no rash. NEURO: Alert and oriented x3. Course Course Emergency Course: Patient is aware of diagnosis, understands and agrees to treatment plan. Anticipatory guidance given. Patient agrees to follow-up as directed and is aware of reasons to seek care at the emergency department. Portions of this record may have been created with voice recognition software Level of Care: Express Care Visit MDM - URI/Sore Throat MDM Narrative Medical decision making narrative: Neg strep result reviewed with pt. Advise supportive treatments. Patient is appropriate for outpatient treatment and follow-up. Scheduled with ENT in 2 days. Differential Diagnosis Differential diagnosis: Likely upper respiratory infection, sinusitis, viral infection and pharyngitis Discharge Plan Discharge Clinical Impression: Tonsillar calculus Patient Disposition: Home, Self-Care Condition: Stable Instructions: Tonsillitis (ED) Ad
[2023-04-12 08:14] VITALS: BP 115/66; PULSE 62; RESP 16; TEMP 37; O2SAT 99
== END 2023-04-12 08:38 | disposition home or self-care (01) ==
PROVIDERS: Emergency Provider Nurse Practitioner Family; PCP Physician Assistant
DX: J35.8 Other chronic diseases of tonsils and adenoids (principal)
CPT/HCPCS: 87081; 87880; 99213; G0463

== ENCOUNTER 2023-04-16 14:54 | Emergency (ER) | payer BC, SELFPAY ==
--- NOTE | ~2023-04-16 | XR_ITS ---
EXAMINATION: XR chest 2V 04/16/2023 15:51 INDICATION: Rib and back pain PROCEDURE: 2 view chest COMPARISON: No prior studies for comparison. FINDINGS: The lungs are clear. The cardiomediastinal silhouette is within normal limits. There are no pleural effusions. There is no pneumothorax suspected. IMPRESSION: 1: NO ACUTE CARDIOPULMONARY DISEASE. Reviewed, dictated and finalized at location A.
[2023-04-16 15:17] VITALS: BP 124/67; PULSE 59; RESP 16; TEMP 36.8; O2SAT 100
--- NOTE | 2023-04-16 15:36 | ED.URI ---
HPI - URI/Sore Throat General Chief Complaint: Upper Respiratory Infection Stated Complaint: SOB Time Seen by Provider: 04/16/23 15:36 Source: patient Mode of arrival: ambulatory Limitations: no limitations History of Present Illness HPI Narrative: 28-year-old female presents with complaint of cough for 4 days. Today she states she began to have chest pain with coughing, difficulty taking deep breath due to pain. Afebrile. Denies shortness of breath But states pain when taking deep breath makes her feel short of breath. Has not taking any [id number] pain medications to treat her symptoms. Afebrile. All systems reviewed and negative except as noted above. Related Data Allergies Allergy/AdvReac Type Severity Reaction Status Date / Time No Known Allergies Allergy Verified 04/14/23 09:40 Review of Systems Review of Systems: CONSTITUTIONAL: Denies fever, chills, or sweats. EYES: Denies visual changes, redness, or discharge. ENT: Denies rhinorrhea, congestion, sore throat, or otalgia. CARDIOVASCULAR: Denies chest pain, palpitations, or edema. RESPIRATORY: Reports cough and chest pain, denies dyspnea. GASTROINTESTINAL: Denies abdominal pain, nausea, vomiting, or diarrhea. GENITOURINARY: Denies dysuria or hematuria. SKIN: Denies rash or itching. MUSCULOSKELETAL: Denies back pain, joint pain, or myalgia. NEUROLOGIC: Denies headache, numbness, or weakness. PSYCHIATRIC: Denies anxiety or depression. All other systems reviewed are negative, except as documented in HPI. [facility] Past Medical History Medical History Depression Eczema Overweight (BMI 25.0-29.9) and not yet delivered Family History Family History Grandparent Depression Sibling Pulmonary embolism Father Obesity Other Diabetes mellitus Family history of arthritis Family history of heart disease in male family member before age 55 Hypertension Social History Social History (Updated 04/14/23 @ 09:41 by Razia Humphrey CMA) Smoking status: Never smoker Second hand tobacco smoke exposure: Yes Alcohol intake: current Alcohol use details: Occasional Substance use: never Lack of Transportation: No Lack of Food: Never True Current Housing: I Have Housing Concerned About Future Housing: No Difficulty Paying Gas/Electric Bills: No Difficulty Paying for Meds: No Currently Unemployed: No Education: Master's Degree or Higher Difficulty w/ Childcare or Family Care: No Occupation/Education: occupation 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 There is no relevant family history pertinent to the presenting complaint. Exam Narrative: GENERAL: This is a well-nourished, well-developed patient, in no apparent distress. HEAD: normocephalic, atraumatic. EYES: PERRL. Sclera clear/white. Vision is grossly intact. EARS: External ears normal, auditory canals clear and without drainage, TMs normal without perforation. Hearing grossly intact. NOSE: External nose normal with no obvious nasal discharge, nares without redness, no rhinorrhea. THROAT: Mucous membranes moist, posterior pharynx clear. NECK: Neck supple, non-tender without lymphadenopathy, masses or thyromegaly. CARDIOVASCULAR: Regular rate and rhythm without murmurs, gallops, or rubs. RESPIRATORY: Clear to auscultation. Breath sounds equal bilaterally. No wheezes, rales, or rhonchi. SKIN: warm, Dry, intact with no suspicious lesions or rash, good texture and turgor. NEURO: awake, alert, and oriented to person, place and time. There were no obvious focal neurologic abnormalities. EXTREMITIES: No joint tenderness, eff
== END 2023-04-16 16:05 | disposition home or self-care (01) ==
PROVIDERS: Emergency Provider Nurse Practitioner Family; PCP Physician Assistant
DX: R05.1 Acute cough (principal)
CPT/HCPCS: 71046; 99213; G0463

== ENCOUNTER 2023-08-10 01:21 | Day surgery (SDC) | payer OTHER, SELFPAY ==
[2023-08-03 10:38] VITALS: BMI 26.5
--- NOTE | 2023-08-03 10:42 | PC.NURSE ---
Report to the Outpatient Waiting Room, entrance under the green pavilion located off [facility], at time 0615 on date 08/10/23. Planned Procedure Time: 0815. Time changes happen often and if your time is changed the preop area will call you the afternoon before. - You and your visitor will be asked to self-screen and do not enter if you have any COVID symptoms. - A mask is optional within the hospital at this time. Patients may have clear liquids (water, carbonated beverages, clear teas, apple juice) until 3 hours prior to surgery with a maximum of 20 ounces. - No food from midnight until time of surgery Take the following medications with a SIP of water the morning of surgery: N/A DO NOT STOP ANY OF YOUR OTHER PRESCRIPTION MEDICATIONS PRIOR TO SURGERY ?EXCEPT THE FOLLOWING Medications to discontinue per physician: N/A Date to take last dose: N/A Please no make-up, nail japanese, hairspray, perfume, deodorant, or body powder the day of surgery. No jewelry (including any body piercings) or valuables the day of surgery, leave them at home. Please take a shower or bath the night before, or the morning of, surgery with an antibacterial soap. Wear comfortable, loose fitting clothing. - Jewelry must be removed prior to entering the operating room. Rings and piercings that are not removed may be cut off. - The hospital will not accept responsibility for valuables. - Please leave all valuables, including medications, at home the day of surgery. If you are going home after surgery, a licensed tow motor driver must drive you home. - NO public transportation without another adult if you receive anesthesia. - We recommend that an adult stay with you for 24 hours following discharge. - We also recommend that you do not drive, make important decision, drink alcoholic beverages, or take any drugs that were not prescribed by your health care provider for at least 24 hours after your discharge time. Follow any additional instructions given to you from your surgeon. If you or anyone in your household have experienced Covid symptoms in the past week, please notify your surgeon or the nurse liaison at the phone number below for possible testing. Telephone instructions given to PT Cate BERMUDEZ and asked if any additional questions and then verbalized understanding. Patient advised to call surgeon office or pre surgery nurse liaison [phone] if any additional questions.
--- NOTE | 2023-08-09 13:34 | P.PNAN_ITS ---
Anes - Initial Pre Proc Eval Procedure: Operation Date: 08/10/23 08:15 Proposed Procedures p Tonsillectomy And Adenoidectomy - Warren De La Rosa MD Date/Time: 08/09/23 13:34 Surgeon: Warren De La Rosa MD Pre Op Diagnosis: Recur Tonsillitis,Tonsils Stones,Chr Tonsillitis Patient Data Age: 28 Gender: F Height: 1.57 m Weight: 65.8 kg Allergies Allergy/AdvReac Type Severity Reaction Status Date / Time No Known Allergies Allergy Verified 08/10/23 07:21 Home Medications Medication Instructions Recorded Confirmed Type No Home Medications 08/03/23 08/10/23 History Patient hx anesthesia problems: none Family hx anesthesia problems: none Results Review: All pre-operative results and documents have been reviewed as part of the pre- operative evaluation. [facility] Past Medical History Medical History Depression Eczema Overweight (BMI 25.0-29.9) and not yet delivered Family History Family History Grandparent Depression Sibling Pulmonary embolism Father Obesity Other Diabetes mellitus Family history of arthritis Family history of heart disease in male family member before age 55 Hypertension Social History Social History Smoking status: Never smoker Second hand tobacco smoke exposure: Yes Alcohol intake: current Alcohol use details: VERY RARE Substance use: never Substance use type: does not use Lack of Transportation: No Lack of Food: Never True Current Housing: I Have Housing Concerned About Future Housing: No Difficulty Paying Gas/Electric Bills: No Difficulty Paying for Meds: No Currently Unemployed: No Education: Master's Degree or Higher Difficulty w/ Childcare or Family Care: No Living arrangements: with family Occupation/Education: occupation 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 Informed Consent: The patient's anesthetic plan and its attendant risks and benefits were discussed with the patient/family/POA. Questions were solicited and answers provided to the satisfaction of the patient/family/POA.
--- NOTE | 2023-08-09 17:57 | PM.IMHP ---
H&P: HPI History of Present Illness Date/Time: 08/09/23 17:57 Chief Complaint: Snoring adenoid hypertrophy tonsillar hypertrophy recurrent tonsillitis tonsil stones halitosis Narrative: planned procedure Review of Systems Review of Systems: All systems reviewed & are unremarkable except as noted in HPI and below PMFSH Past Medical History Medical History Depression Eczema Overweight (BMI 25.0-29.9) and not yet delivered Family History Family History Grandparent Depression Sibling Pulmonary embolism Father Obesity Other Diabetes mellitus Family history of arthritis Family history of heart disease in male family member before age 55 Hypertension Social History Social History Smoking status: Never smoker Second hand tobacco smoke exposure: Yes Alcohol intake: current Alcohol use details: VERY RARE Substance use: never Substance use type: does not use Lack of Transportation: No Lack of Food: Never True Current Housing: I Have Housing Concerned About Future Housing: No Difficulty Paying Gas/Electric Bills: No Difficulty Paying for Meds: No Currently Unemployed: No Education: Master's Degree or Higher Difficulty w/ Childcare or Family Care: No Living arrangements: with family Occupation/Education: occupation 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 Risks were discussed including bleeding infection damage to surrounding structures need for further procedures damage to any structures with the clavicle by myself damage any structures during the induction and remains of anesthesia including vocal cord paralysis.? Postoperative bleeding risks narcotic use time off work time off school.? change in taste change in swallow which could be permanent.? Patient voiced understanding and agreed. (2) Adenoid hypertrophy: Code(s): J35.2 - Hypertrophy of adenoids Status: Acute (3) Recurrent tonsillitis: Code(s): J03.91 - Acute recurrent tonsillitis, unspecified Status: Acute (4) Halitosis: Code(s): R19.6 - Halitosis Status: Acute (5) Chronic tonsillitis: Code(s): J35.01 - Chronic tonsillitis Status: Acute (6) Tonsillar calculus: Code(s): J35.8 - Other chronic diseases of tonsils and adenoids Status: Acute
[2023-08-10] VITALS (10 sets, daily range): BP systolic 102–121; BP diastolic 54–72; PULSE 47–91; RESP 13–18; TEMP 36.7–36.9; O2SAT 96–100
[2023-08-10] MEDS: LACTATED RINGERS 1,000 ML 30 ML IV CONT ×2 (07:05→09:05)
[2023-08-10] MEDS: ACETAMINOPHEN 500 MG TABLET 1000 MG PO (07:09)
--- NOTE | 2023-08-10 07:20 | WPDHPUPDATE1 ---
History and Physical Update Update Date/Time: 08/10/23 07:20 History and Physical has been reviewed, including an updated exam of the patient. There are NO changes in the patient's condition. Risks, benefits, and alternatives have been discussed and questions answered. Patient agrees to proceed with procedure.
--- NOTE | 2023-08-10 08:07 | WPDHPUPDATE1 ---
History and Physical Update Update Date/Time: 08/10/23 08:07 Procedure will be tonsillectomy and adenoidectomy
--- NOTE | 2023-08-10 09:28 | W.PM.PROC2 ---
Procedure Note - Detailed Date of Procedure 08/10/23 Pre-op Diagnosis Recur Tonsillitis,Tonsils Stones,Chr Tonsillitis Post-op Diagnosis Same Procedure Performed Tonsillectomy Surgeon Warren De La Rosa MD Anesthesia General Indications See above Findings Chronic appearing tonsils Description of Procedure Patient identified consent verified preop. Patient brought to the operating. Time-out performed. General anesthesia induced endotracheal tube secured. Patient prepped draped positioned procedure confirmed time-out performed. McIvor mouth gag inserted to reveal tonsil described above. They were removed bilaterally in the extracapsular plane using Bovie electrocautery at a setting of 8 Bovie suction electrocautery setting of 10 bipolar a setting of 8. Any bleeding was controlled bipolar polar and Bovie suction electrocautery. Between tonsil McIvor mouth gag lowered reopened to allow blood flow to return to the tongue. Have her tonsils are out McIvor mouth gag reopened no further bleeding. Red rubber catheters inserted adenoids viewed no adenoids. Red rubber catheters removed McIvor mouth gag removed here the patient given back to Anesthesiology. Blood loss 0 cc. I performed all dictated portions of procedure. No complications. Patient was taken back to PACU. Estimated Blood Loss -5.0 Drains No Packing No Pathology Yes Complications No immediate complications Condition Stable Disposition PACU [facility] Billing Surgery - Charge Forward: Surgery Billing
[2023-08-10] MEDS: fentaNYL CITRATE INJ (*CRX) 100 MCG/2 ML VIAL 25 MCG IV PUSH ×4 (09:32→10:02)
[2023-08-10] MEDS: oxyCODONE HCL (*CRX) 5 MG TAB IR PO (10:27)
== END 2023-08-10 10:56 | disposition home or self-care (01) ==
PROVIDERS: PCP Nurse Practitioner Family; Visit Provider Otolaryngology
PROC: (CPT 42826; principal; 2023-08-10 08:15)
DX: J35.01 Chronic tonsillitis (principal); F32.A Depression, unspecified; Z82.49 Family history of ischemic heart disease and other diseases of the circulatory system
CPT/HCPCS: 42826; 88304; A9270; J0330; J1100; J2250; J2405; J2704; J3010; J7120

== ENCOUNTER 2023-08-11 09:04 | Observation (INO) | payer OTHER, SELFPAY ==
[2023-08-11 09:21] VITALS: BP 106/77; PULSE 79; RESP 16; TEMP 36.9; O2SAT 99
--- NOTE | 2023-08-11 09:33 | ED.GENADULT ---
HPI - General Adult General Chief complaint: Unspecified <PRISCILA Rodriguez Last Filed: 08/11/23 18:15> Stated complaint: Throat surgery post op day 1 <PRISCILA Rodriguez Last Filed: 08/11/23 18:15> Time Seen by Provider: 08/11/23 09:16 <PRISCILA Rodriguez Last Filed: 08/11/23 18:15> Source: patient <PRISCILA Rodriguez Last Filed: 08/11/23 18:15> Mode of arrival: ambulatory <PRISCILA Rodriguez Last Filed: 08/11/23 18:15> Limitations: no limitations <PRISCILA Rodriguez Last Filed: 08/11/23 18:15> History of Present Illness HPI narrative: Patient is a 28 y/o female who presents the ED with report of throat pain. Patient is 1 day postop tonsillectomy performed by Dr. De La Rosa. She reports pain to her throat, difficulty opening her mouth, pain/difficulty swallowing. She has been unable to take her oral pain medicines. Difficulty even drinking fluids. Denies bleeding, fevers, vomiting, difficulty breathing. <PRISCILA Rodriguez Last Filed: 08/11/23 18:15> Related Data Allergies/adverse reactions: Allergies Allergy/AdvReac Type Severity Reaction Status Date / Time No Known Allergies Allergy Verified 08/10/23 07:21 <PRISCILA Rodriguez Last Filed: 08/11/23 18:15> Review of Systems Review of Systems: CONSTITUTIONAL: Denies fever, chills, or sweats. ENT: See HPI. CARDIOVASCULAR: Denies chest pain. RESPIRATORY: Denies cough or dyspnea. GASTROINTESTINAL: Denies abdominal pain, nausea, vomiting. <PRISCILA Rodriguez Last Filed: 08/11/23 18:15> All systems reviewed & are unremarkable except as noted in HPI and below <PRISCILA Rodriguez Last Filed: 08/11/23 18:15> PMFSH Past Medical History Medical History: Medical History Depression Eczema Overweight (BMI 25.0-29.9) <Shila Lizarraga PA-C - Last Filed: 08/11/23 18:15> Surgical History Surgical History: Surgical History History of tonsillectomy 08/10/23 <Shila Lizarraga PA-C - Last Filed: 08/11/23 18:15> Family History Family History: Family History Grandparent Depression Sibling Pulmonary embolism Father Obesity Other Diabetes mellitus Family history of arthritis Family history of heart disease in male family member before age 55 Hypertension <Shila Lizarraga PA-C - Last Filed: 08/11/23 18:15> Social History Social History: Social History Social History: Lives at home with her significant other and children. Surrogate decision maker: Chauncey Clayton boyfriend. Code Status: Full Code. 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 HEAD: Normocephalic, atraumatic. ENT: Difficulty opening mouth due to pain but no trismus. No stridor or upper airway sounds. No respiratory dis
[2023-08-11] MEDS: SODIUM CHLORIDE 0.9% IV 1,000 ML 999 ML IV CONT ×2 (10:05→11:15)
[2023-08-11] MEDS: MORPHINE SULFATE (*CRX) 4 MG/ML INJ IV PUSH ×2 (10:06→21:39)
[2023-08-11] MEDS: ONDANSETRON INJ 4 MG/2 ML VIAL IV PUSH ×2 (10:06→21:39)
[2023-08-11] MEDS: HYDROmorphone HCL INJ (*CRX) 1 MG/ML SYR 0.5 MG IV PUSH ×2 (11:14→18:19)
[2023-08-11 11:23] VITALS: BP 107/59; PULSE 54; RESP 16; O2SAT 100
[2023-08-11 13:57] VITALS: BP 94/62; PULSE 67; RESP 16; O2SAT 99
--- NOTE | 2023-08-11 14:16 | PM.IMHP ---
H&P: HPI History of Present Illness Date/Time: 08/11/23 14:16 Chief Complaint: Throat Pain Narrative: 28 y/o F presents here with sore throat and decreased PO intake with PMH of tonsillectomy on 08/10. Patient had tonsillectomy performed yesterday here with Dr. De La Rosa. No immediate post-op complications and patient was discharged home without incident. Patient states she was able to tolerate a small amount of water and pasta last night. However around 1-2 a.m. patient began having increased throat pain and could not open her mouth. States she has been able to tolerate secretions, however due to pain it is easier to spit. Reports that her tongue feels swollen. Endorsed mild shortness of breath overnight that was relieved with sitting upright. She denies fever, body aches, or chills. No active bleeding or facial swelling. Review of Systems Review of Systems: All systems reviewed & are unremarkable except as noted in HPI and below PMFSH Past Medical History Medical History (Updated 08/11/23 @ 18:15 by Shila Lizarraga PA-C) Depression Eczema Overweight (BMI 25.0-29.9) Surgical History Surgical History (Updated 08/11/23 @ 17:43 by Chanelle Bella APRN) History of tonsillectomy 08/10/23 Family History Family History Grandparent Depression Sibling Pulmonary embolism Father Obesity Other Diabetes mellitus Family history of arthritis Family history of heart disease in male family member before age 55 Hypertension Social History Social History (Updated 08/11/23 @ 17:44 by Chanelle Bella APRN) Social History: Lives at home with her significant other and children. Surrogate decision maker: Chauncey Clayton, boyfriend. Code Status: Full Code. 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 Spiritual care concerns: No Meds Home Medications and Allergies Home Medications Medication Instructions Recorded Confirmed Type oxycodone 5 mg tablet 5 mg PO .[id number] PRN pain #30 tabs 08/10/23 08/11/23 Rx prednisone 10 mg tablet 10 mg PO DAILY #3 tabs 08/11/23 08/11/23 Rx Allergies Allergy/AdvReac Type Severity Reaction Status Date / Time No Known Allergies Allergy Verified 08/10/23 07:21 Vital Signs Vital Signs - 24 hr 08/11/23 09:21 08/11/23 11:23 08/11/23 13:57 Temperature 98.4 F Pulse Rate 79 54 L 67 Respiratory Rate 16 16 16 Blood Pressure 106/77 107/59 L 94/62 L Pulse Oximetry 99 100 99 Exam Narrative: resting in ER stretcher, non visitors at bedside. Const: General: no acute distress and uncomfortable HENMT: Face/Nose/Sinus: Normal nares present Mouth: Yes dry mucous membranes Other: No uvula deviation, white plaques to bilateral tonsillar pillars consistent with cauterization, and no tongue swelling. Eyes: General: appearance normal, both eyes and all related structures Sclera: sclerae normal Pupils: Equal, round and reactive pupils present Resp: Effort & Inspection: normal respiratory effort Auscultation: clear to auscultation bilaterally Cardio: Rate: regular rate Rhythm: regular rhythm Other: S1-S2 present without murmur, rub, ectopy GI: GI Palp: Yes Soft to palpation Auscultation: normal bowel soun
[2023-08-11 14:40] LABS: Basophils Percent Auto 0.2 % (0.2-1.2); Hematocrit 41.6 % (37.0-47.0); Hemoglobin 13.2 g/dL (12.0-15.0); Immature Granulocyte Absolute 0.06 K/mm3 (0.00-0.031); Immature Granulocyte Percent A 0.5 % (0-0.5); Lymphocytes Absolute Auto 0.79 K/mm3 (0.9-3.2); Lymphocytes Percent Auto 6.1 % (18.3-44.2); Mean Corpuscular HGB Conc 31.7 g/dl (32-36); Mean Corpuscular Hemoglobin 28.6 pg (26-34); Mean Platelet Volume 11.3 fl (7.4-10.4); Monocytes Absolute Auto 0.2 K/mm3 (0.1-0.6); Monocytes Percent Auto 1.5 % (2.6-8.5); Neutrophils Absolute Auto 11.9 K/mm3 (1.3-6.7); Neutrophils Percent Auto 91.7 % (45.5-73.1); Platelet Count Result 185 k/mm3 (150-375); Red Blood Count 4.62 M/mm3 (4.2-5.4); Red Cell Distribution Width 13.9 % (11.5-14.5); White Blood Count 12.9 K/mm3 (4.5-10.0)
--- NOTE | 2023-08-11 14:49 | PC.NURSE ---
Attempted to call report at [phone]
[2023-08-11 14:54] LABS: Alanine Aminotransferase 16 U/L (6-35); Albumin Level 4.2 g/dL (3.5-5.1); Alkaline Phosphatase 50 U/L (38-126); Anion Gap 7 mmol/L (8-16); Aspartate Amino Transferase 23 U/L (14-36); Blood Urea Nitrogen 6 mg/dL (7-17); Calcium 8.9 mg/dL (8.4-10.2); Carbon Dioxide 27 mmol/L (22-30); Chloride 108 mmol/L (98-107); Estimated Glomerular Filt Rate > 60; Glucose 110 mg/dL (65-110); Sodium 142 mmol/L (137-145)
[2023-08-11 15:38] VITALS: BMI 25.3
--- NOTE | 2023-08-11 15:42 | ADMGEN ---
Addendum entered by Earline Johnson RN 08/11/23 18:43: Pt reporting pain. ENT came to see pt and spoke with midlevel provider. Orders placed for pain management medication. Pt was given medication based on pain rating 8/10. Pt tolerating pain medication well. Pt was provided with clear liquid tray, but was unable to tolerate swallowing at this time. Pt was instructed to notify staff immediately and contact provider immediately if bleeding occurs. Pt verbalizes understanding. Pt has participated and contributed in plan of care. Pt will be monitored for any changes in status. fast food shift lead will be notified of pt hx and instructions of what to do if bleeding occurs. Pt compliant with care and satisfied with plan of care going forward. Original Note: This patient, Natalai Weiss, was admitted to 3 Med Surg Room 313-01. Patient/family oriented to hospital policies and general routines including ID bracelet, bed and alarms, visiting hours, pain management, procedures, bathroom and other care routines, personal items, smoking policy, room service/diet, and visiting hours. Information on how to activate the Rapid Response Team has been discussed. Patient/Family are encouraged to report perceived risks to care and to ask questions if they do not understand what they are told or what they should do.
[2023-08-11 16:00] VITALS: BP 118/50; PULSE 55; RESP 16; TEMP 36.9; O2SAT 97
[2023-08-11] MEDS: SODIUM CHLORIDE 0.9% IV 1,000 ML 125 ML IV CONT (17:24)
--- NOTE | 2023-08-11 18:18 | WPDCN ---
Assessment and Plan Assessment and plan (1) Post-operative pain: Code(s): G89.18 - Other acute postprocedural pain Status: Acute Assessment and Plan: Would recommend IV maintenance fluids. IV Decadron, two more doses eight hours apart, 4-6mg (minimally increases bleeding risk). IV pain medication as needed for adequate pain control. Advance diet as tolerated to soft diet. Avoid iv nsaids. Tomorrow, if the patient is unable to swallow, we'll consider iv Toradol (increases bleeding risk). Please call me immediately with any active bleeding. [phone]. Activity as tolerated. HPI Data of Consult Date/Time: 08/11/23 18:18 Requesting Physician: Jorge Rosas MD Primary Care Provider: [place]ia Morales APRN Consult Narrative Narrative: Natalia Weiss is a 28 year old female with severe post operative pain. S/p tonsillectomy yesterday. Review of Systems Review of Systems: All systems reviewed & are unremarkable except as noted in HPI and below PMFSH Past Medical History Medical History Depression Eczema Overweight (BMI 25.0-29.9) Surgical History Surgical History History of tonsillectomy 08/10/23 Family History Family History Grandparent Depression Sibling Pulmonary embolism Father Obesity Other Diabetes mellitus Family history of arthritis Family history of heart disease in male family member before age 55 Hypertension Social History Social History Social History: Lives at home with her significant other and children. Surrogate decision maker: Chauncey Clayton, boyfriend. Code Status: Full Code. 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): Female Spiritual care concerns: No Meds Home Medications and Allergies Home Medications Medication Instructions Recorded Confirmed Type oxycodone 5 mg tablet 5 mg PO .q6-q8h PRN pain #30 tabs 08/10/23 08/11/23 Rx prednisone 10 mg tablet 10 mg PO DAILY #3 tabs 08/11/23 08/11/23 Rx Allergies Allergy/AdvReac Type Severity Reaction Status Date / Time No Known Allergies Allergy Verified 08/10/23 07:21 Vital Signs Vital Signs - 24 hr 08/11/23 09:21 08/11/23 11:23 08/11/23 13:57 Temperature 36.9 C Pulse Rate 79 54 L 67 Respiratory Rate 16 16 16 Blood Pressure 106/77 107/59 L 94/62 L Pulse Oximetry 99 100 99 Oxygen Delivery 08/11/23 15:29 08/11/23 16:00 Temperature 36.9 C Pulse Rate 55 L Respiratory Rate 16 Blood Pressure 118/50 L Pulse Oximetry 97 Oxygen Delivery Room Air Exam Narrative: Normal post operative appearance. No active bleeding. Results Labs 08/11/23 14:29 08/11/23 14:29 Labs: Short CBC 08/11/23 Range/Units 14:29 WBC 12.9 H (4.5-10.0) K/mm3 Hgb 13.2 D (12.0-15.0) g/dL Hct 41.6 (37.0-47.0) % Plt Count 185 (150-375) k/mm3 [facility] 08/11/23 14:29 Sodium 142 Potassium 4.0 Chloride 108 H Carbon Dioxide 27 BUN 6 L Creatinine 0.70 Glucose 110 Calcium 8.9 Liver Function 08/11/23 Range/Units 14:29
[2023-08-11 21:17] VITALS: BP 107/51; PULSE 50; RESP 13; TEMP 36.6; O2SAT 100
[2023-08-12] MEDS: SODIUM CHLORIDE 0.9% IV 1,000 ML 125 ML IV CONT ×3 (01:55→18:04)
[2023-08-12] MEDS: MORPHINE SULFATE (*CRX) 4 MG/ML INJ IV PUSH ×5 (01:57→22:14)
[2023-08-12] MEDS: ONDANSETRON INJ 4 MG/2 ML VIAL IV PUSH ×3 (05:51→14:18)
[2023-08-12 05:52] VITALS: BP 92/48; PULSE 50; RESP 13; TEMP 36.7; O2SAT 98
[2023-08-12 06:19] VITALS: BP 106/56
--- NOTE | 2023-08-12 10:49 | PM.PNGS ---
Progress Note: A&P Assessment and Plan (1) Difficulty swallowing: Qualifiers: Dysphagia type: unspecified Qualified Code(s): R13.10 - Dysphagia, unspecified Code(s): R13.10 - Dysphagia, unspecified Status: Acute Assessment and Plan: Tylenol ibuprofen every 4 hours, not to exceed daily limit of acetaminophen. IV narcotics as needed for pain control. Patient must be able the tolerate sufficient oral intake of liquids for discharge. (2) Impaired swallowing associated with throat pain: Code(s): R13.10 - Dysphagia, unspecified; R07.0 - Pain in throat Status: Acute (3) Post-operative pain: Code(s): G89.18 - Other acute postprocedural pain Status: Acute Subjective Subjective Date/Time Seen: 08/12/23 10:49 Interval history: patient reports that she is not bleeding. Still having severe pain. Review of Systems Review of Systems: All systems reviewed & are unremarkable except as noted in HPI and below Exam Narrative: Not seen in person discussed via phone no active bleeding Objective Data Vital Signs Vital Signs: Vital Signs - 24 hr 08/11/23 11:23 08/11/23 13:57 08/11/23 15:29 Temperature Pulse Rate 54 L 67 Respiratory Rate 16 16 Blood Pressure 107/59 L 94/62 L Pulse Oximetry 100 99 Oxygen Delivery Room Air 08/11/23 16:00 08/11/23 21:17 08/11/23 20:00 Temperature 36.9 C 36.6 C Pulse Rate 55 L 50 L Respiratory Rate 16 13 Blood Pressure 118/50 L 107/51 L Pulse Oximetry 97 100 Oxygen Delivery Room Air 08/12/23 05:52 08/12/23 06:19 Temperature 36.7 C Pulse Rate 50 L Respiratory Rate 13 Blood Pressure 92/48 L 106/56 L Pulse Oximetry 98 Oxygen Delivery Intake/Output Intake/Output: Intake & Output 08/09/23 08/10/23 08/11/23 08/12/23 23:59 23:59 23:59 23:59 Intake Total 1999 2750 Balance 1999 2750 Meds/Results Medications: Active Medications Generic Name Dose Route Start Last Admin Trade Name Freq PRN Reason Stop Dose Admin Acetaminophen 325 mg 08/12/23 10:20 Acetaminophen 325 Mg Tablet PO Q6HR [facility] Acetaminophen/Codeine Phosphate 5 ml 08/11/23 18:12 Acetaminophen/Codeine Elixir (*Crx) 120-12 Mg/5 Ml Udc PO Q4H PRN Pain Rated 1-3 Docusate Sodium 100 mg 08/11/23 18:12 Docusate Sodium 100 Mg Capsule PO Q12H PRN Constipation Hydromorphone HCl 0.5 mg 08/11/23 17:54 08/11/23 18:19 Hydromorphone Hcl Inj (*Crx) 1 Mg/Ml Syr IV PUSH 0.5 mg Q3H PRN Administration Pain Rated 7-10 Sodium Chloride 1,000 mls @ 125 mls/hr 08/11/23 14:00 08/12/23 10:05 Normal Saline Iv IV CONT 125 mls/hr .Q8H SHARAN Administration Ibuprofen 200 mg 08/12/23 10:46 Ibuprofen 200 Mg Tablet PO Q4H SHARAN Morphine Sulfate 4 mg 08/11/23 17:54 08/12/23 10:30 Morphine Sulfate (*Crx) 4 Mg/Ml Inj IV PUSH 4 mg Q4H PRN Administration Pain Rated 4-6 Ondansetron HCl 4 mg 08/11/23 13:59 08/12/23 10:30 Ondansetron Inj 4 Mg/2 Ml Vial IV PUSH 4 mg Q4H PRN Administration Nausea Labs Labs: Laboratory Results - last 24 hr 08/11/23 14:29 WBC 12.9 H RBC 4.62 Hgb 13.2 D Hct 41.6 MCV 90.0 MCH 28.6 MCHC 31.7 L RDW 13.9 Plt Count 185 MPV 11.3 H Immature Gran % (Auto) 0.5 Neut % (Auto) 91.7 H Lymph % (Auto) 6.1 L [place] % (Auto) 1.5 L Eos % (Auto) 0.0 Baso % (Auto) 0.2 Lymph # (Auto) 0.79 L [place] # (Auto) 0.2 Eos # (Auto) 0.0 Baso # (Auto) 0.0 Abs Immat Gran (auto) 0.06 H Absolute Neuts (auto) 11.9 H Absolute Nucleated RBC 0.0 Nucleated RBC % 0.0 Sodium 142 Potassium 4.0 Chloride 108 H Carbon Dioxide 27 Anion Gap 7 L BUN 6 L Creatinine 0.70 Estim Creat Clear Calc Not Reportable Estimated GFR > 60 Glucose 110 Calcium 8.9 Total Bilirubin 1.0 AST 23 ALT 16 Alkaline Phosphatase 50 Total Protein 7.0 Albumin 4.2
[2023-08-12] MEDS: ACETAMINOPHEN 325 MG TABLET PO ×4 (11:06→22:15)
[2023-08-12] MEDS: IBUPROFEN 200 MG TABLET PO (11:06)
--- NOTE | 2023-08-12 13:27 | PM.IMPN ---
Progress Note: A&P Assessment and Plan (1) Post-operative pain: Code(s): G89.18 - Other acute postprocedural pain Status: Acute Assessment and Plan: throat pain likely due to recent tonsillectomy, post-op day [address] De La Rosa following - recommend Ibuprofen, Tylenol, fluids, and advancing diet as tolerated. if no bleeding and able to tolerate PO, may d/c. continue pain control, IV PRN available dexamethasone 6 mg completed and d/c zofran prn stool softener prn continue hydration - given 2L of NS, continue at 125 mL/hr. Assess daily for discontinuation. stat consult to ENT if re-bleed occurs Plan Home Meds/Chronic Conditions - held home post-op pain medication and steroid, see above for substitutions. DVT Prophylaxis: SCDs, low risk so will hold on pharm Lines: pIV Code Status: Full Code Subjective Date/time seen: 08/12/23 13:27 Interval history: Patient is a 28 y/o F admitted with sore throat and decreased PO intake with PMH of tonsillectomy on 08/[address] De La Rosa. He is following her hospital admission course. She had no immediate post-op complications and patient was discharged home without incident. Patient states she was able to tolerate a small amount of water and pasta that night. Patient began having increased throat pain during the night and could not open her mouth. States she has been able to tolerate secretions, however due to pain it is easier to spit. Reports that her tongue feels swollen. She denies fever, body aches, or chills. No active bleeding or facial swelling. She denies difficulty breathing this morning. She is still reporting severe pain to her throat and has not taken much PO intake due to pain. Per Dr. De La Rosa, given final 2 doses of Decadron last night, will continue to rotate between Tylenol and Motrin and IV pain meds PRN available. Will d/c when cleared by ENT and able to take in PO intake. Review of Systems Review of Systems: All systems reviewed & are unremarkable except as noted in HPI and below Exam Const: General: no acute distress and uncomfortable HENMT: Face/Nose/Sinus: Normal nares present Mouth: Yes dry mucous membranes Other: No uvula deviation, white plaques to bilateral tonsillar pillars consistent with cauterization, and no tongue swelling. No signs of abscess or bleeding. Eyes: General: appearance normal, both eyes and all related structures Sclera: sclerae normal Pupils: Equal, round and reactive pupils present EOM: EOMs intact bilaterally Neck: Neck: supple Other: mild swelling Resp: Effort & Inspection: normal respiratory effort Auscultation: clear to auscultation bilaterally Cardio: Rate: regular rate Rhythm: regular rhythm Other: S1-S2 present without murmur, rub, ectopy GI: Auscultation: normal bowel sounds Skin: General skin exam: normal color and no rashes or lesions noted Wounds: no wounds Neuro: Speech: normal speech Motor exam (neuro): 5/5 motor strength present throughout Sensory Exam: normal sensation Other: A/Ox4 Extrem: General: normal to inspection Psych: Mental Status: mental status grossly normal Affect: normal affect and Sad affect present Other: Good insight and judgment. Objective Data Vital Signs Vital Signs: Vital Signs - 24 hr 08/11/23 13:57 08/11/23 15:29 08/11/23 16:00 Temperature 98.4 F Pulse Rate 67 55 L Respiratory Rate 16 16 Blood Pressure 94/62 L 118/50 L Pulse Oximetry 99 97 Oxygen Delivery Room Air 08/11/23 21:17 08/11/23 20:00 08/12/23 05:52 Temperature 97.9 F 98.0 F Pulse Rate 50 L 50 L Respiratory Rate 13 13 Blood Pressure 107/51 L 92/48 L Pulse Oximetry 100 98 Oxygen Delivery Room Air 08/12/23 06:19 Temperature Pulse Rate Respiratory Rate Blood Pressure 106/56 L Pulse Oximetry Oxygen Delivery Intake/Output Intake/Output: Intake & Output 08/09/23 08/10/23 08/11/23 08/12/23 23:59 23:59 23:
[2023-08-12 14:00] VITALS: BP 102/43; PULSE 57; RESP 12; TEMP 36.8; O2SAT 99
[2023-08-12] MEDS: IBUPROFEN 400 MG TABLET PO ×3 (15:16→22:15)
[2023-08-12 20:00] VITALS: O2SAT 99
[2023-08-12 22:00] VITALS: BP 118/59; PULSE 57; RESP 18; TEMP 36.6; O2SAT 99
[2023-08-13] MEDS: ACETAMINOPHEN 325 MG TABLET PO ×4 (02:07→13:00)
[2023-08-13] MEDS: IBUPROFEN 400 MG TABLET PO ×3 (02:07→11:43)
[2023-08-13] MEDS: MORPHINE SULFATE (*CRX) 4 MG/ML INJ IV PUSH (02:07)
[2023-08-13] MEDS: SODIUM CHLORIDE 0.9% IV 1,000 ML 125 ML IV CONT (02:11)
[2023-08-13] MEDS: ONDANSETRON INJ 4 MG/2 ML VIAL IV PUSH (02:12)
[2023-08-13 06:30] VITALS: BP 110/51; PULSE 55; RESP 16; TEMP 36.5; O2SAT 97
[2023-08-13 06:38] LABS: Basophils Percent Auto 0.4 % (0.2-1.2); Eosinophils Percent Auto 0.5 % (0-4.4); Hematocrit 35.1 % (37.0-47.0); Immature Granulocyte Absolute 0.02 K/mm3 (0.00-0.031); Immature Granulocyte Percent A 0.3 % (0-0.5); Lymphocytes Absolute Auto 2.96 K/mm3 (0.9-3.2); Lymphocytes Percent Auto 39.6 % (18.3-44.2); Mean Corpuscular HGB Conc 31.3 g/dl (32-36); Mean Corpuscular Hemoglobin 28.9 pg (26-34); Mean Corpuscular Volume 92.1 fl (80-100); Mean Platelet Volume 11.5 fl (7.4-10.4); Monocytes Absolute Auto 0.6 K/mm3 (0.1-0.6); Monocytes Percent Auto 8.2 % (2.6-8.5); Neutrophils Absolute Auto 3.8 K/mm3 (1.3-6.7); Platelet Count Result 157 k/mm3 (150-375); Red Blood Count 3.81 M/mm3 (4.2-5.4); Red Cell Distribution Width 13.6 % (11.5-14.5); White Blood Count 7.5 K/mm3 (4.5-10.0)
[2023-08-13] MEDS: oxyCODONE HCL (*CRX) 5 MG TAB IR PO (09:59)
[2023-08-13 14:00] VITALS: BP 112/62; PULSE 60; RESP 15; TEMP 36.6; O2SAT 99
--- NOTE | 2023-08-13 14:11 | PM.DS ---
DS: Admitting Diagnosis Discharge Date 08/13/23 Admitting Diagnosis Throat pain post tonsillectomy DS: Discharge Diagnosis Discharge Diagnosis (1) Post-operative pain: Code(s): G89.18 - Other acute postprocedural pain Status: Acute DS: Summary Hospital Course Hospital Course: This is a 28-year-old female with a insignificant past medical history the presented to the ED on 08/11/2023 due to throat pain Postop Tonsillectomy. Patient had tonsillectomy on 08/10/2023 and she was discharged home without any problems. patient began having increased throat pain and difficulty opening her mouth. She could not handle her secretions and also was unable to swallow. She was monitored here at the hospital and received IV fluids. Dr. De La Rosa was consulted as he was the surgeon who performed the tonsillectomy. Patient was given pain medication and a soft diet. patient's pain and swelling improved over the days in the hospital. On day of discharge she was able to swallow soft bite size foods intake sips of water. Discussed with Dr. De La Rosa and he has cleared the patient for discharge with follow-up with him. Recommending continuing discharge instructions from surgery. Labs and vital signs are stable and she is medically clear for discharge at this time. Time Spent with Patient Time attestation: Total time spent providing and/or coordinating discharge services: Exam Narrative: GENERAL: Comfortable, no acute distress HENMT: moist mucous membranes, well-healed bilateral surgical incision were palatine tonsils previously were, throat is not erythematous and she is able to control her secretions. No swelling of the tongue. EYES: EOM intact b/l NECK: no lymphadenopathy RESPIRATORY: clear to auscultation CARDIO: RRR SKIN: no rashes DS: Data Data Completed and Pending Labs on day of discharge: Labs from last 24 hours 08/13/23 06:25 WBC 7.5 RBC 3.81 L Hgb 11.0 L Hct 35.1 L MCV 92.1 MCH 28.9 MCHC 31.3 L RDW 13.6 Plt Count 157 MPV 11.5 H Immature Gran % (Auto) 0.3 Neut % (Auto) 51.0 Lymph % (Auto) 39.6 [place] % (Auto) 8.2 Eos % (Auto) 0.5 Baso % (Auto) 0.4 Lymph # (Auto) 2.96 [place] # (Auto) 0.6 Eos # (Auto) 0.0 Baso # (Auto) 0.0 Abs Immat Gran (auto) 0.02 Absolute Neuts (auto) 3.8 Absolute Nucleated RBC 0.0 Nucleated RBC % 0.0 Discharge Plan Discharge Attending physician on discharge: Everton Lopez Consulting providers: Warren De La Rosa; Shila Lizarraga Discharging Clinician: Sheri Samuel Patient Disposition: Home, Self-Care Activity: as tolerated Diet: other - see discharge instructions Discharge Instructions: Recommend soft bite sized foods to aid with easier intake of meals. Please continue to follow Dr. De La Rosa's discharge instructions from tonsilectomy. Drink plenty of fluids to stay hydrated. Can alternate between Tylenol, Motrin and oxycodone for pain. Discharge disposition: Take medications as prescribed Monitor blood pressures Avoid social areas, you wear a mask when in social settings Encouraged to continue with yearly vaccinations Return to the emergency department if he developed sudden shortness of breath, chest pain, nausea, vomiting, upset stomach or intractable diarrhea Return to the emergency department if you develop fever greater than 100.4 Follow-up with the primary care physician within 1-2 weeks Thank you for [facility] for your healthcare needs Patient Instructions: Antibiotic Form Stand Alone Forms: General Discharge Information Follow-up/Referrals: Warren De La Rosa MD [Physician] - Discharge Medications: Continued oxycodone 5 mg tablet 5 mg PO .q6-q8h PRN (Reason: pain) Qty: 30 0RF prednisone 10 mg tablet 10 mg PO DAILY Qty: 3 0RF Patient Comments: Pt has not started taking yet. Rx Instructions: Take in am Date of admission: 08/11/23 13:59 Primary Care Provid
== END 2023-08-13 15:30 | disposition home or self-care (01) ==
LOC: ANHED 10:04 → ANH3MEDSUR 15:20
PROVIDERS: Nurse Practitioner; Admitting Provider Hospitalist; Emergency Provider Physician Assistant; PCP Nurse Practitioner Family; Visit Provider Internal Medicine
DX: G89.18 Other acute postprocedural pain (principal); Z90.89 Acquired absence of other organs; R13.10 Dysphagia, unspecified; R07.0 Pain in throat; F32.A Depression, unspecified; E66.3 Overweight; Z68.25 Body mass index [BMI] 25.0-25.9, adult; Z81.8 Family history of other mental and behavioral disorders; Z84.89 Family history of other specified conditions; Z95.2 Presence of prosthetic heart valve; Z79.891 Long term (current) use of opiate analgesic
CPT/HCPCS: 36415; 80053; 85025; 96361; 96374; 96375; 96376; 99285; A9270; G0378; J1100; J1170; J2270; J2405; J7030

== ENCOUNTER 2023-08-16 18:33 | Emergency (ER) | payer OTHER, SELFPAY ==
[2023-08-16 18:54] VITALS: BP 113/80; PULSE 76; RESP 18; TEMP 36.7; O2SAT 99
[2023-08-16 19:38] VITALS: BP 129/79; PULSE 73; RESP 16; O2SAT 100
--- NOTE | 2023-08-16 20:00 | ED.FEVER ---
HPI - Fever General Chief Complaint: Fever Stated Complaint: fever post tonsilectomy Time Seen by Provider: 08/16/23 19:46 History of Present Illness HPI Narrative: Patient is a 28-year-old female status post tonsillectomy on 08/09 here with sore throat, trouble swallowing and fever. She notes that she had surgery and was discharged last Wednesday. Last Wednesday she presented to the hospital due to sore throat difficulty swallowing. She was admitted the hospital for 2 nights and felt okay at time of discharge. She has been taking Tylenol and ibuprofen at home for the pain. Around 2:00 p.m. today she started experiencing significantly worse pain and difficulty swallowing. The pain seems to be worse on the right side than the left. She notes difficulty swallowing and difficulty swallowing Tylenol or ibuprofen and keeping pills down. She did note a fever at home, temperature was 102? F. she did contact Dr. De La Rosa who recommended that if she was unable to swallow pills she should present to the emergency department. No sick contacts. Related Data Allergies Allergy/AdvReac Type Severity Reaction Status Date / Time No Known Allergies Allergy Verified 08/16/23 19:38 Review of Systems Review of Systems: All systems reviewed & are unremarkable except as noted in HPI and below PMFSH Past Medical History Medical History Depression Eczema Overweight (BMI 25.0-29.9) Surgical History Surgical History History of tonsillectomy 08/10/23 Family History Family History Grandparent Depression Sibling Pulmonary embolism Father Obesity Other Diabetes mellitus Family history of arthritis Family history of heart disease in male family member before age 55 Hypertension Social History Social History Social History: Lives at home with her significant other and children. Surrogate decision maker: Chauncey Clayton, boyfriend. Code Status: Full Code. 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 HEAD: Normocephalic, atraumatic. EYES: PERRLA and EOMI. ENT: Nares clear. Mucous membranes moist. Echar appreciated bilaterally. Some trismus present. Tenderness over the right lateral neck. No fullness beneath the tongue. Uvula midline. NECK: Supple. CHEST: Clear to auscultation. No respiratory distress. HEART: Regular rate and rhythm. Normal peripheral pulses. ABDOMEN: Soft, nontender, nondistended. EXTREMITIES: Normal range of motion. No edema. SKIN: Warm, dry, no rash. NEURO: No focal deficits. Alert and oriented x3. PSYCH: Normal mood and affect. Course [employer]/PA Physician Supervision Chart review performed. Patient had surgery by Dr. De La Rosa 1 week ago, she was admitted for 2 nights last week due to pain and difficulty swallowing. Triage vitals normal. Patient seen evaluated, does appear to be uncomfortable, ENT exam grossly normal for post op 1 week. Afebrile here. Will do basic lab work and discuss case with
[2023-08-16 20:22] LABS: Basophils Percent Auto 0.4 % (0.2-1.2); Eosinophils Absolute Auto 0.2 K/mm3 (0-0.3); Eosinophils Percent Auto 1.9 % (0-4.4); Hematocrit 44.3 % (37.0-47.0); Hemoglobin 14.5 g/dL (12.0-15.0); Immature Granulocyte Absolute 0.02 K/mm3 (0.00-0.031); Immature Granulocyte Percent A 0.2 % (0-0.5); Lymphocytes Absolute Auto 2.32 K/mm3 (0.9-3.2); Lymphocytes Percent Auto 27.9 % (18.3-44.2); Mean Corpuscular HGB Conc 32.7 g/dl (32-36); Mean Corpuscular Hemoglobin 28.8 pg (26-34); Mean Corpuscular Volume 88.1 fl (80-100); Monocytes Absolute Auto 0.6 K/mm3 (0.1-0.6); Monocytes Percent Auto 7.1 % (2.6-8.5); Neutrophils Absolute Auto 5.2 K/mm3 (1.3-6.7); Neutrophils Percent Auto 62.5 % (45.5-73.1); Platelet Count Result 270 k/mm3 (150-375); Red Blood Count 5.03 M/mm3 (4.2-5.4); Red Cell Distribution Width 13.9 % (11.5-14.5); White Blood Count 8.3 K/mm3 (4.5-10.0)
[2023-08-16] MEDS: ONDANSETRON INJ 4 MG/2 ML VIAL IV PUSH (20:23)
[2023-08-16] MEDS: MORPHINE SULFATE (*CRX) 4 MG/ML INJ IV PUSH (20:26)
[2023-08-16] MEDS: SODIUM CHLORIDE 0.9% IV 1,000 ML 999 ML IV CONT (20:37)
[2023-08-16 20:41] LABS: Alanine Aminotransferase 22 U/L (6-35); Albumin Level 4.6 g/dL (3.5-5.1); Alkaline Phosphatase 37 U/L (38-126); Anion Gap 11 mmol/L (8-16); Aspartate Amino Transferase 30 U/L (14-36); Bilirubin,Total 0.7 mg/dL (0.2-1.3); Blood Urea Nitrogen 8 mg/dL (7-17); CRP 0.6 mg/dL (<1.0); Calcium 10.1 mg/dL (8.4-10.2); Carbon Dioxide 23 mmol/L (22-30); Chloride 104 mmol/L (98-107); Estimated Glomerular Filt Rate > 60; Glucose 95 mg/dL (65-110); Potassium 4.1 mmol/L (3.4-5.0); Sodium 138 mmol/L (137-145)
[2023-08-16 21:06] VITALS: BP 112/72; PULSE 72; RESP 18; TEMP 36.8; O2SAT 100
[2023-08-16 21:44] LABS: Influenza A QL RT-PCR Negative (Negative); Influenza B QL RT-PCR Negative (Negative); RSV RNA, RT-PCR Negative (Negative); SARS-CoV-2 RNA PCR Negative (Negative)
[2023-08-16 22:12] VITALS: BP 110/66; PULSE 73; RESP 16; O2SAT 100
== END 2023-08-16 22:12 | disposition home or self-care (01) ==
PROVIDERS: Emergency Provider Student in an Organized Health Care Education/Training Program; PCP Nurse Practitioner Family
DX: G89.18 Other acute postprocedural pain (principal); J02.9 Acute pharyngitis, unspecified; Z20.822 Contact with and (suspected) exposure to COVID-19; E66.3 Overweight
CPT/HCPCS: 36415; 80053; 85025; 86140; 87637; 96361; 96374; 96375; 99284; J1100; J2270; J2405; J7030

== ENCOUNTER 2023-12-16 09:31 | Outpatient (CLI) | payer OTHER, SELFPAY ==
[2023-12-16 12:17] LABS: Basophils Percent Auto 0.7 % (0.2-1.2); Eosinophils Absolute Auto 0.2 K/mm3 (0-0.3); Eosinophils Percent Auto 3.4 % (0-4.4); Hematocrit 40.5 % (37.0-47.0); Hemoglobin 13.2 g/dL (12.0-15.0); Immature Granulocyte Absolute 0.01 K/mm3 (0.00-0.031); Immature Granulocyte Percent A 0.2 % (0-0.5); Lymphocytes Absolute Auto 2.11 K/mm3 (0.9-3.2); Mean Corpuscular HGB Conc 32.6 g/dl (32-36); Mean Corpuscular Hemoglobin 29.8 pg (26-34); Mean Corpuscular Volume 91.4 fl (80-100); Mean Platelet Volume 12.4 fl (7.4-10.4); Monocytes Absolute Auto 0.6 K/mm3 (0.1-0.6); Monocytes Percent Auto 11.2 % (2.6-8.5); Neutrophils Absolute Auto 2.6 K/mm3 (1.3-6.7); Neutrophils Percent Auto 46.5 % (45.5-73.1); Platelet Count Result 194 k/mm3 (150-375); Red Blood Count 4.43 M/mm3 (4.2-5.4); Red Cell Distribution Width 13.3 % (11.5-14.5); White Blood Count 5.6 K/mm3 (4.5-10.0)
[2023-12-16 12:31] LABS: Alanine Aminotransferase 14 U/L (6-35); Albumin Level 4.2 g/dL (3.5-5.1); Alkaline Phosphatase 50 U/L (38-126); Anion Gap 2 mmol/L (4-12); Aspartate Amino Transferase 56 U/L (14-36); Bilirubin,Total 0.8 mg/dL (0.2-1.3); Blood Urea Nitrogen 12 mg/dL (7-17); Calcium 9.6 mg/dL (8.4-10.2); Carbon Dioxide 30 mmol/L (22-30); Chloride 107 mmol/L (98-107); Estimated Glomerular Filt Rate > 60; Glucose 76 mg/dL (65-110); Potassium 4.3 mmol/L (3.4-5.0); Sodium 139 mmol/L (137-145)
[2023-12-16 13:07] LABS: Thyroid Stimulating Hormone Reflex 0.994 uIU/mL (0.465-4.68)
== END 2023-12-16 09:32 | disposition home or self-care (01) ==
LOC: ANHGOSHLAB 09:32
PROVIDERS: PCP Family Medicine; Visit Provider Family Medicine
DX: K13.79 Other lesions of oral mucosa (principal); R42 Dizziness and giddiness
CPT/HCPCS: 36415; 80053; 84443; 85025

== ENCOUNTER 2024-01-05 09:45 | Outpatient (RCR) | payer OTHER, SELFPAY ==
--- NOTE | 2024-01-05 10:47 | PTOPEVAL1 ---
Assessment and note entered by Mnadeep Nesbitt Evaluation Information Assessment Status Evaluation Diagnosis dizziness and giddiness Onset 10/06/23 Subjective Information Pt reports dizziness started 3 months ago, when turning head to the sides, states like the environment is turning; states occasionally feeling disoriented when driving. Pt. reports that she is able to complete all ADL's and IADL's despite the dizziness. 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 She reports that she is very active with triathlons and states that the dizziness is notable with turning her head side to side in the pool. She reports that her goal for therapy is to get rid of her dizziness. Reported Pain Level Pain Score 0: Self Report Assessment PT Clinical Summary Pt. is a 28 year old female who enters the clinic with dizziness. She demonstrates no nystagmus on this date, however does have brief dizziness with the Félix Halpike Maneuver to the left. Pt. provides additional information regarding having elevated HR at rest on occasion post Rx. At this time pt. is educated in regards to performance of the home Janeth Maneuver. She currently presents with dizziness on this date. Continued skilled PT is indicated in order to reduce dizziness with IADL performance. Consider follow up with M.D. if symptoms do not subside with the Janeth Maneuver to discuss fluctuating HR reports. Plan of Care Interventions Neuro Re-education,Therapeutic Activities, Therapeutic Exercise Other Interventions canalith repositioning PT Services Indicated Yes Treatment Frequency and Pt. will attend 1 follow up session to determine Duration independence with the home Janeth Maneuver and to re-assess for progress in symptoms. These treatments will address the objective and functional deficits as defined above. The patient will be advanced safely and appropriately in order for the patient to progress towards his/her prior level of function. Additional exercises will be introduced and as well as a comprehensive home exercise program upon discharge, if needed, ?to ensure carryover of functional gains achieved in the clinic. This treatment plan has been reviewed and agreement upon by the patient.
--- NOTE | 2024-01-05 10:48 | OPREHPOC ---
Outpatient Therapy Plan of Care This is a Multidisciplinary Plan of Care that may contain components documented by all disciplines (PT, OT, and ST.) PT Problem 1 PT Problem #1 Knowledge Deficit PT Goal 1 Goal Pt. will be independent with the Janeth Maneuver Target Visit 2 PT Problem 2 PT Problem #2 Impaired Vestibular Syste PT Goal 1 Goal Pt. will provide subjective reports of no episodes of dizziness in a 1 week period Target Visit 2 PT Goal 2 Goal Pt. will improve her DHI score to less than 15% limitation. Target Visit 2
--- NOTE | 2024-01-20 09:05 | PCPTNOTE ---
Mrs. Weiss attended her initial evaluation on 01/05/24. She was scheduled for follow up this date and failed to show for her appointment. The patient with contacted via phone and stated that she had forgot her appointment. She states that she is doing much better and recalls 1-2 episodes of dizziness since her initial evaluation. She reports she is pleased with her progress and request discharge at this time. Thank you for the referral of this patient. Mandeep Nesbitt, MPT
== END 2024-01-20 10:00 | disposition home or self-care (01) ==
LOC: ANHPT 09:45
PROVIDERS: PCP Family Medicine; Visit Provider Family Medicine
DX: H81.12 Benign paroxysmal vertigo, left ear (principal)
CPT/HCPCS: 95992; 97161; 99199

== ENCOUNTER 2024-03-01 10:14 | Day surgery (SDC) | payer OTHER, SELFPAY ==
[2024-02-18 13:28] VITALS: BMI 26.3
--- NOTE | 2024-03-01 11:07 | P.PNAN_ITS ---
Anes - Eval Pre Procedure Procedure: Operation Date: 03/01/24 12:00 Proposed Procedures p Esophagogastroduodenoscopy - Christiano Redding MD s Diagnostic Colonoscopy - Christiano Redding MD Date/Time: 03/01/24 11:07 Pre Op Diagnosis: Melena, ABD Pain, Recurrent Oral Aphthae Patient Data Age: 28 Gender: F Height: 1.57 m Weight: 63.6 kg Allergies Allergy/AdvReac Type Severity Reaction Status Date / Time No Known Allergies Allergy Verified 02/23/24 08:41 Home Medications Medication Instructions Recorded Confirmed Type sodium,potassium,mag sulfates 17.5 See Rx Instructions PO .COMPLEX 02/18/24 02/23/24 Rx gram-3.13 gram-1.6 gram oral soln #354 mL (Suprep Bowel Prep Kit) Patient hx anesthesia problems: none Family hx anesthesia problems: none Results Review: All pre-operative results and documents have been reviewed as part of the pre- operative evaluation. [facility] Past Medical History Medical History Depression Eczema Overweight (BMI 25.0-29.9) Surgical History Surgical History History of tonsillectomy 08/10/23 Family History Family History Grandparent Depression Sibling Pulmonary embolism Father Obesity Other Diabetes mellitus Family history of arthritis Family history of heart disease in male family member before age 55 Hypertension Social History Social History Social History: Lives at home with her significant other and children. Surrogate decision maker: Chauncey Clayton boyfriend. Code Status: Full Code. 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
--- NOTE | 2024-03-01 11:33 | WPDHPUPDATE1 ---
History and Physical Update Update Date/Time: 03/01/24 11:33 History and Physical has been reviewed, including an updated exam of the patient. There are NO changes in the patient's condition. Risks, benefits, and alternatives have been discussed and questions answered. Patient agrees to proceed with procedure.
[2024-03-01 12:04] VITALS: BP 109/70; PULSE 62; RESP 16; TEMP 37.1; O2SAT 100; BMI 25.4
[2024-03-01] MEDS: LACTATED RINGERS 1,000 ML 150 ML IV CONT (12:09)
--- NOTE | 2024-03-01 12:26 | P.PNAN_ITS ---
Anes - Eval Final PreProcedure Day of Procedure 03/01/24 12:26 Patient weight: normal Heart: regular rate and rhythm Lungs: clear to auscultation Airway: Mallampati scale class II Neurological: alert and oriented Last oral intake: >/= 8 hours ASA classification: II Emergent: no Anesthetic plan: proceed Anesthesia type and monitoring: general GIVS and standard monitoring Results Review: All pre-operative results and documents have been reviewed as part of the pre- operative evaluation. Informed Consent: The patient's anesthetic plan and its attendant risks and benefits were discussed with the patient/family/POA. Questions were solicited and answers provided to the satisfaction of the patient/family/POA.
[2024-03-01 13:01] VITALS: BP 101/39; PULSE 55; RESP 14; O2SAT 100
[2024-03-01 13:11] VITALS: BP 105/50; PULSE 52; RESP 16; O2SAT 100
[2024-03-01 13:21] VITALS: BP 101/57; PULSE 45; RESP 16; O2SAT 100
--- NOTE | 2024-03-01 13:33 | WPDANESPN ---
Anes - Prog Note Post-Op Date/Time: 03/01/24 13:33 Cardiovascular status: normal Respiratory status: normal Airway patency: baseline Mental status: baseline Post-Op hydration status: normal Vital Signs: Last Vital Signs Temp 37.1 C 03/01/24 12:04 Pulse 45 L 03/01/24 13:21 Resp 16 03/01/24 13:21 BP 101/57 L 03/01/24 13:21 Pulse Ox 100 03/01/24 13:21 O2 Del Method Room Air 03/01/24 13:21 Pain Score (VAS): 0/10 I/O: Intake & Output 02/29/24 03/01/24 03/01/24 23:59 07:59 15:59 Intake Total 200 Balance 200 Patient Feedback: Patient satisfied with anesthetic care.
== END 2024-03-01 13:29 | disposition home or self-care (01) ==
PROVIDERS: Visit Provider Internal Medicine Gastroenterology
PROC: 0DJ08ZZ Inspection of Upper Intestinal Tract, Via Natural or Artificial Opening Endoscopic (ICD-10-PCS; CPT 43235; principal; 2024-03-01 12:00)
PROC: 0DJD8ZZ Inspection of Lower Intestinal Tract, Via Natural or Artificial Opening Endoscopic (ICD-10-PCS; CPT 45378; 2024-03-01 12:00)
DX: K62.5 Hemorrhage of anus and rectum (principal); R10.84 Generalized abdominal pain
CPT/HCPCS: 45378; 43239

== ENCOUNTER 2024-03-13 13:19 | Emergency (ER) | payer OTHER, SELFPAY ==
--- NOTE | ~2024-03-13 | XR_ITS ---
EXAMINATION: XR foot RT min 3V DATE: 03/13/2024 14:01 INDICATION: Right foot pain. TECHNIQUE: 4 views of right foot were obtained. COMPARISON: None. FINDINGS: Bone alignment is normal. No fracture. Joint spaces are normal. IMPRESSION: 1. Normal right foot. Reviewed, dictated and finalized at location A. IMPRESSION: 1. Normal right foot.
[2024-03-13 13:36] VITALS: BP 122/70; PULSE 60; RESP 20; TEMP 36.2; O2SAT 100
--- NOTE | 2024-03-13 13:47 | ED.EXTPRO ---
HPI - Extremity Problem General Chief complaint: Extremity Problem,Nontraumatic Stated complaint: R FOOT INJURY Time Seen by Provider: 03/13/24 13:47 Source: patient, RN notes reviewed and old records reviewed Mode of arrival: ambulatory Limitations: no limitations History of Present Illness HPI Narrative: 28-year-old female presents to the [facility] with complaints of right foot pain. Patient reports that she started having discomfort to the dorsal aspect of her right foot. States that at times it radiates to 2nd and 3rd phalanx Sensation intact in all 5 toes, positive pedal pulse. No significant swelling noted. Mild discover coloration noted to the skin dorsal aspect mid foot. Patient states about a week ago while she was running she noted some discomfort. When on vacation and the pain continues to get worse. No treatment prior to arrival States that she typically wears a good running shoe at all times Onset (ago): week(s) (1) Related Data Home Medications Medication Instructions Recorded Confirmed No Home Medications 03/13/24 03/13/24 Allergies Allergy/AdvReac Type Severity Reaction Status Date / Time No Known Allergies Allergy Verified 03/13/24 13:40 Review of Systems Review of Systems: All systems reviewed & are unremarkable except as noted in HPI and below Constitutional: Constitutional: Reports no additional constitutional complaints Eyes: Eyes: Reports no additional eye complaints ENT: Reports system reviewed and no additional complaints, except as documented Cardiovascular: Cardiovascular: Reports no additional cardiovascular complaints, Denies chest pain and Denies dyspnea Respiratory: Respiratory: Reports no additional respiratory complaints, Denies chest congestion, Denies cough and Denies dyspnea Musculoskeletal: Musculoskeletal: Reports as per HPI and Reports other (Dorsal right foot pain) Integumentary/Breasts: Skin/Breast: Reports system reviewed and no additional complaints, except as docu Neurologic: Reports system reviewed and no additional complaints, except as documented Psychiatric: Psychiatric: Reports no additional psychiatric complaints Allergic/Immunologic: Allergic/Immunologic: Reports no additional allergic/immunologic complaints PMFSH Past Medical History Medical History Depression Eczema Overweight (BMI 25.0-29.9) Surgical History Surgical History History of tonsillectomy 08/10/23 Family History Family History Grandparent Depression Sibling Pulmonary embolism Father Obesity Other Diabetes mellitus Family history of arthritis Family history of heart disease in male family member before age 55 Hypertension Social History Social History Social History: Lives at home with her significant other and children. Surrogate decision maker: Chauncey Clayton, boyfriend. Code Status: Full Code. 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
== END 2024-03-13 14:13 | disposition home or self-care (01) ==
PROVIDERS: Emergency Provider Nurse Practitioner; PCP Family Medicine
DX: M79.671 Pain in right foot (principal)
CPT/HCPCS: 73630; 99213; G0463

== ENCOUNTER 2024-03-27 08:19 | Outpatient (CLI) | payer OTHER, SELFPAY ==
[2024-03-27 09:00] LABS: CRP 0.8 mg/dL (<1.0)
[2024-03-27 09:21] LABS: Erythrocyte Sedimentation Rate 15 mm/hr (0-20)
[2024-03-28 15:43] LABS: Almond (F20) IgE <0.10 kU/L; Cashew Nut (F202) IgE <0.10 kU/L; Cashew Nut (F202) IgE Class 0; Codfish (F3) IgE <0.10 kU/L; Codfish (F3) IgE Class 0; Cow's Milk (F2) IgE <0.10 kU/L; Cow's Milk (F2) IgE Class 0; Egg White (F1) IgE <0.10 kU/L; Egg White (F1) IgE Class 0; Hazelnut (F17) IgE <0.10 kU/L; Hazelnut (F17) IgE Class 0; Peanut (F13) IgE <0.10 kU/L; Peanut (F13) IgE Class 0; Salmon (F41) IgE <0.10 kU/L; Salmon (F41) IgE Class 0; Scallop (F338) IgE <0.10 kU/L; Scallop (F338) IgE Class 0; Sesame Seed <0.10 kU/L; Shrimp (F24) IgE <0.10 kU/L; Soybean (F14) IgE <0.10 kU/L; Soybean (F14) IgE Class 0; Tuna (F40) <0.10 kU/L; Tuna (F40) Class 0; Walnut (F256) IgE <0.10 kU/L; Walnut (F256) IgE Class 0; Wheat (F4) IgE <0.10 kU/L; Wheat (F4) IgE Class 0
[2024-03-29 08:43] LABS: Zinc 67 mcg/dL (60-130)
[2024-03-29 12:44] LABS: ANA Pattern Nuclear, Homogeneous; ANA Titer 1:40 titer; Anti Nuclear Antibody Pattern Nuclear, Speckled
[2024-03-29 17:03] LABS: Immunoglobulin A 181 mg/dL (47-310); TTG IGA AB <1.0 U/mL
[2024-03-30 09:58] LABS: Vitamin D 1,25 (OH)2 Total 53 pg/mL (18-72); Vitamin D2 1,25 (OH)2 <8 pg/mL; Vitamin D3 1,25 (OH)2 53 pg/mL
[2024-03-30 13:09] LABS: ANCA Screen Negative (Negative)
[2024-03-31 22:09] LABS: Myeloperoxidase Ab <1.0 AI (<1.0); Proteinase-3 Ab <1.0 AI (<1.0)
[2024-04-03 07:28] LABS: S cerevisiae Ab (IgG) 15.5 U (<=20.0)
== END 2024-03-27 08:20 | disposition home or self-care (01) ==
LOC: ANHLAB 08:20
PROVIDERS: PCP Family Medicine; Visit Provider Nurse Practitioner
DX: K12.0 Recurrent oral aphthae (principal); K92.1 Melena; R10.9 Unspecified abdominal pain; R10.813 Right lower quadrant abdominal tenderness; R19.8 Other specified symptoms and signs involving the digestive system and abdomen
CPT/HCPCS: 36415; 82607; 82652; 82728; 82746; 82784; 84630; 85652; 86003; 86036; 86038; 86039; 86140; 86364; 86671

== ENCOUNTER 2024-03-29 08:22 | Outpatient (CLI) | payer OTHER, SELFPAY ==
[2024-04-04 22:18] LABS: Calprotectin, Stool 31 mcg/g
== END 2024-03-29 08:23 | disposition home or self-care (01) ==
LOC: ANHLAB 08:22
PROVIDERS: PCP Family Medicine; Visit Provider Nurse Practitioner
DX: K12.0 Recurrent oral aphthae (principal); K92.1 Melena; R10.9 Unspecified abdominal pain
CPT/HCPCS: 83993

== ENCOUNTER 2024-03-31 06:49 | Outpatient (CLI) | payer OTHER, SELFPAY ==
--- NOTE | ~2024-03-31 | CT_ITS ---
CT of the Abdomen and Pelvis: Indication: Recurrent oral aphthae Technique: 2.5 mm axial scans were obtained through the abdomen and pelvis following intravenous adm inistration of 100 cc of Omnipaque 350. Dose reduction technique was used on this scan by utilizing a utomated exposure control and iterative reconstruction technique. The dose-length product (DLP) was 2 74.46 mGy-cm. Findings: Scans through the lung bases are unremarkable. The liver, pancreas, gallbladder, adrenals and kidneys are within normal limits. Borderline slightly. No evidence of aortic aneurysm. No lymphadenopathy. No bowel obstruction or bowel wall thickening. There is no evidence to suggest acute appendicitis. Images through the pelvis were performed. Urinary bladder unremarkable. No significant adnexal mass s een. No ascites. Impression: Borderline splenomegaly, otherwise unremarkable exam. Reviewed, dictated and finalized at location . Impression: Borderline splenomegaly, otherwise unremarkable exam.
== END 2024-03-31 06:50 | disposition home or self-care (01) ==
PROVIDERS: PCP Family Medicine; Visit Provider Nurse Practitioner
DX: R19.8 Other specified symptoms and signs involving the digestive system and abdomen (principal); K92.1 Melena; K12.0 Recurrent oral aphthae; R10.813 Right lower quadrant abdominal tenderness; R10.31 Right lower quadrant pain
CPT/HCPCS: 74177; Q9967

== ENCOUNTER 2024-04-01 22:54 | Emergency (ER) | payer OTHER, SELFPAY ==
--- NOTE | ~2024-04-01 | CT_ITS ---
CT ANGIOGRAM NECK AND HEAD History: Syncope, headache. Technique: Axial noncontrast imaging of the brain was performed. Serial spiral axial images through t he head and neck were then obtained during arterial phase IV injection of 100 cc of Omnipaque 350. 3- D postprocessing and MIP images were then reconstructed on the remote workstation. Dose reduction anila hnique was used on this scan by utilizing automated exposure control and iterative reconstruction anila hnique. The dose-length product (DLP) was 1532.12 mGy-cm. CTA neck findings: Bilateral vertebral arteries are patent. Bilateral common carotid, internal carot id, and external carotid arteries are patent. No large vessel occlusion or stenosis. No aneurysm seen . The proximal right internal carotid artery demonstrates 0% stenosis relative to the normal distal a rtery lumen diameter. The proximal left internal carotid artery demonstrates 0% stenosis relative to the normal distal artery lumen diameter. CTA head findings: Distal vertebral arteries, basilar artery, and posterior cerebral arteries are pat ent. Distal internal carotid arteries, middle cerebral arteries, and anterior cerebral arteries are p atent. No large vessel occlusion or stenosis. No aneurysm seen. Axial noncontrast imaging of the brain is unremarkable. No acute infarct, intracranial hemorrhage, or mass lesion seen. Grade transition preserved. No mass effect or midline shift. Ventricles and subara chnoid spaces are unremarkable. Paranasal sinuses and mastoids are clear. Calvarium intact. Impression: Unremarkable exam. Reviewed, dictated and finalized at location . Impression: Unremarkable exam.
--- NOTE | ~2024-04-01 | XR_ITS ---
EXAMINATION: XR chest 2V DATE: 04/02/2024 00:01 INDICATION: Syncope TECHNIQUE: frontal and lateral views of the chest were obtained. COMPARISON: Chest radiograph dated 04/16/2023 FINDINGS: The lungs remain clear with no focal airspace opacities, pulmonary edema, pleural effusion or pneumot horax. The cardiomediastinal silhouette is normal. Mild lower thoracic spondylosis. IMPRESSION: 1. No acute cardiopulmonary disease. Reviewed, dictated and finalized at location A.
[2024-04-01 22:58] VITALS: BP 116/70; PULSE 95; RESP 20; TEMP 36.7; O2SAT 100
--- NOTE | 2024-04-01 23:05 | ECG_ITS ---
Test Date: 2024-04-01 23:10:54 Measurements Intervals [place] Rate: 80 P: 46 UT: 158 QRS: 36 QRSD: 104 T: 13 QT: 385 QTc: 446 Interpretive Statements SINUS RHYTHM WITH SINUS ARRHYTHMIA POSSIBLE LEFT ATRIAL ENLARGEMENT INCOMPLETE RIGHT BUNDLE BRANCH BLOCK MINIMAL Q WAVES- INFERIOR LEADS NONSPECIFIC T-WAVE ABNORMALITY BORDERLINE ECG No previous ECG available for comparison Electronically Signed On 04-02-2024 07:29:39 CDT by Dipesh Cobos D.O.
[2024-04-01 23:09] VITALS: O2SAT 100
[2024-04-01 23:10] VITALS: PULSE 62; O2SAT 100
[2024-04-01 23:16] VITALS: BP 126/96; PULSE 80; RESP 16; O2SAT 100
[2024-04-01 23:23] LABS: Basophils Absolute Auto 0.1 K/mm3 (0.0-0.1); Basophils Percent Auto 0.9 % (0.2-1.2); Eosinophils Absolute Auto 0.4 K/mm3 (0-0.3); Eosinophils Percent Auto 4.7 % (0-4.4); Hemoglobin 11.9 g/dL (12.0-15.0); Immature Granulocyte Absolute 0.01 K/mm3 (0.00-0.031); Immature Granulocyte Percent A 0.1 % (0-0.5); Lymphocytes Absolute Auto 5.45 K/mm3 (0.9-3.2); Lymphocytes Percent Auto 69.5 % (18.3-44.2); Mean Corpuscular Hemoglobin 29.5 pg (26-34); Mean Corpuscular Volume 86.6 fl (80-100); Mean Platelet Volume 10.6 fl (7.4-10.4); Monocytes Absolute Auto 0.5 K/mm3 (0.1-0.6); Monocytes Percent Auto 6.1 % (2.6-8.5); Neutrophils Absolute Auto 1.5 K/mm3 (1.3-6.7); Neutrophils Percent Auto 18.7 % (45.5-73.1); Platelet Count Result 151 k/mm3 (150-375); Red Blood Count 4.04 M/mm3 (4.2-5.4); Red Cell Distribution Width 14.2 % (11.5-14.5); White Blood Count 7.8 K/mm3 (4.5-10.0)
[2024-04-01] MEDS: SODIUM CHLORIDE 0.9% IV 1,000 ML 999 ML IV CONT (23:33)
[2024-04-01 23:34] LABS: Alanine Aminotransferase 210 U/L (6-35); Albumin Level 4.3 g/dL (3.5-5.1); Alkaline Phosphatase 77 U/L (38-126); Anion Gap 7 mmol/L (4-12); Aspartate Amino Transferase 139 U/L (14-36); Bilirubin,Total 0.9 mg/dL (0.2-1.3); Blood Urea Nitrogen 11 mg/dL (7-17); Calcium 9.1 mg/dL (8.4-10.2); Carbon Dioxide 28 mmol/L (22-30); Chloride 104 mmol/L (98-107); Estimated CRCL calculation 91 ml/min; Estimated Glomerular Filt Rate > 60; Glucose 93 mg/dL (65-110); Potassium 3.5 mmol/L (3.4-5.0); Sodium 139 mmol/L (137-145)
[2024-04-01] MEDS: diphenhydrAMINE HCl INJ 50 MG/ML VIAL 25 MG IV PUSH (23:34)
[2024-04-01] MEDS: PROCHLORPERAZINE EDISYLATE 10 MG/2 ML VIAL IV PUSH (23:36)
[2024-04-01] MEDS: ACETAMINOPHEN 500 MG TABLET 1000 MG PO (23:37)
[2024-04-01 23:44] LABS: Appearance Urine Clear (Clear); Bilirubin Urine Negative (Negative); Blood Urine Negative (Negative); Color Urine Yellow (Yellow); Glucose Urine UA Negative (Negative); Ketones Urine Negative (Negative); Leukocyte Esterase Ur Negative LEU/UL (Negative); Nitrate Urine Negative (Negative); Protein Urine Negative (Negative); Specific Grav Ur 1.002 (1.001-1.035); Urobilinogen Urine 0.2 mg/dL (<2.0); pH Urine 7.5 (5.0-9.0)
[2024-04-01 23:53] LABS: Add Urine Microscopic? NO
--- NOTE | 2024-04-01 23:55 | ED.SYNCOPE ---
HPI - Syncope General Chief Complaint: Syncope Stated Complaint: headache Time Seen by Provider: 04/01/24 23:07 History of Present Illness HPI narrative: 29-year-old female with recent diagnosis of migraines with aura presents to the emergency department for a headache and syncope. Patient states she has had a headache on the right side of her head for approximately 3 days. States today she put her baby down for bed and went to the shower and attempts to make her head feel better. States her headache acutely became worse, she felt lightheaded and woke up on the floor for shower. She is unsure if she passed out or if she had lower herself to the ground. She denies injury, pain or trauma. Denies neck pain or back pain. She states her headache is behind her right eye and the back of her neck on the right side. She reports blurred vision to the periphery of objects she tries to focus on. She states she has had new onset headaches since November of 2019 for her PCP recently prescribed her sumatriptan. She endorses taking 25 mg of sumatriptan prior to arrival with minimal improvement. She denies fever, diplopia or loss of vision, focal numbness or weakness, chest pain or shortness of breath, abdominal pain, N/V/D. She is currently on her menstrual cycle. Related Data Allergies Allergy/AdvReac Type Severity Reaction Status Date / Time No Known Allergies Allergy Verified 03/24/24 13:12 Review of Systems Review of Systems: CONSTITUTIONAL: Denies fever, chills, or sweats. EYES: Denies visual changes, redness, or discharge. ENT: Denies rhinorrhea, congestion, sore throat, or otalgia. CARDIOVASCULAR: Denies chest pain, palpitations, or edema. RESPIRATORY: Denies cough or dyspnea. GASTROINTESTINAL: Denies abdominal pain, nausea, vomiting, or diarrhea. GENITOURINARY: Denies dysuria or hematuria. SKIN: Denies rash or itching. MUSCULOSKELETAL: Denies back pain, joint pain, or myalgia. NEUROLOGIC: See HPI PSYCHIATRIC: Denies anxiety or depression. [facility] Past Medical History Medical History Depression Eczema Overweight (BMI 25.0-29.9) Surgical History Surgical History History of tonsillectomy 08/10/23 Family History Family History Grandparent Depression Sibling Pulmonary embolism Father Obesity Other Diabetes mellitus Family history of arthritis Family history of heart disease in male family member before age 55 Hypertension Social History Social History Social History: Lives at home with her significant other and children. Surrogate decision maker: Chauncey Clayton boyfriend. Code Status: Full Code. 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 Appears in pain HEAD: Normocephalic, atraumatic. EYES: PERRLA and EOMI. Right eye pressure 19 mmHg, left eye pressure 10 mmHg ENT: Nares clear, no rhinorrhea or epistaxis. Mucous membranes moist. bilateral TMs are guido nonbulging with normal canals NECK:
[2024-04-01 23:56] LABS: Prothrombin Time 13.7 Seconds (11.1-14.7)
[2024-04-01 23:57] LABS: Partial Thromboplastin Time 32.4 Seconds (22.3-36.8)
[2024-04-01 23:59] LABS: Troponin I 0.028 ng/mL (0.000-0.034)
[2024-04-02 00:01] LABS: Platelet Estimate Adequate (Adequate); Schistocytes None Seen
[2024-04-02 00:02] LABS: Atypical Lymphocytes Present
[2024-04-02 00:59] VITALS: BP 106/87; PULSE 67; RESP 16; O2SAT 100
[2024-04-02] MEDS: KETOROLAC 15 MG/ML VIAL (*BKC) IV PUSH (01:25)
== END 2024-04-02 01:29 | disposition home or self-care (01) ==
PROVIDERS: Emergency Medicine; Emergency Provider Physician Assistant; PCP Family Medicine
DX: G43.909 Migraine, unspecified, not intractable, without status migrainosus (principal); R55 Syncope and collapse; R74.01 Elevation of levels of liver transaminase levels; Z79.899 Other long term (current) drug therapy
CPT/HCPCS: 36415; 70496; 70498; 71046; 80053; 81003; 81025; 83735; 84484; 85025; 85610; 85730; 93005; 96361; 96374; 96375; 99284; A9270; J0780; J1200; J1885; J7030; Q9967

== ENCOUNTER 2024-05-17 15:05 | Emergency (ER) | payer OTHER, SELFPAY ==
[2024-05-17 15:18] VITALS: BP 115/69; PULSE 53; RESP 16; TEMP 36.8; O2SAT 100
--- NOTE | 2024-05-17 15:21 | ED.URI ---
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 Patient reports that she has been on prednisone with reducing doses for possible Lupus and has been having some body aches for a week thinks could be from reduced doses of steroid. Patient reports that she has not taken any OTC medications for her discomfort. Unsure if has not yet missed menses is trying. MD elicited complaint: sore throat and other (feeling achy) Pertinent past history: immunosuppression and other (has seen rheumatology possible Lupus on prednisone in reducing doses) Onset (ago): day(s) (day 2 sore throat and felt achy one week) Severity: mild Treatments prior to arrival: none Related Data Home Medications Medication Instructions Recorded Confirmed prednisone 5 mg tablet 5 mg PO DAILY 05/17/24 05/17/24 Allergies Allergy/AdvReac Type Severity Reaction Status Date / Time No Known Allergies Allergy Verified 05/17/24 15:12 Review of Systems Review of Systems: CONSTITUTIONAL: Denies malaise, chills, sweats, or fever. EYES: Denies visual changes, redness, or discharge. ENT: Reports some rhinorrhea, congestion,no sinus pain,no otalgia and positive for sore throat. CARDIOVASCULAR: Denies chest pain, palpitations, or edema. RESPIRATORY: Reports no cough.? Denies dyspnea. GASTROINTESTINAL: Denies abdominal pain, nausea, vomiting, diarrhea SKIN: Denies rash or itching. MUSCULOSKELETAL: reports some myalgia for one week NEUROLOGIC: Denies headache. All systems reviewed & are unremarkable except as noted in HPI and below PMFSH Past Medical History Medical History (Updated 05/18/24 @ 10:56 by Ida Waddell NP) Anxiety Depression Eczema Lupus (systemic lupus erythematosus) Migraine headache without aura Overweight (BMI 25.0-29.9) Surgical History Surgical History History of tonsillectomy 08/10/23 Previous section Family History Family History Grandparent Depression Sibling Pulmonary embolism Father Obesity Other Diabetes mellitus Family history of arthritis Family history of heart disease in male family member before age 55 Hypertension Social History Social History Social History: Lives at home with her significant other and children. Surrogate decision maker: Chauncey Clayton, boyfriend. Code Status: Full Code. 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 There is no relevant family history pertinent to the presenting complaint Exam Narrative: GENERAL: Well-appearing, well-nourished, and in no acute distress.
[2024-05-17 15:45] LABS: EDSTREPNEGPOS1 Negative
== END 2024-05-17 15:45 | disposition home or self-care (01) ==
PROVIDERS: Emergency Provider Registered Nurse; PCP Family Medicine
DX: J02.9 Acute pharyngitis, unspecified (principal); M32.9 Systemic lupus erythematosus, unspecified
CPT/HCPCS: 87081; 87880; 99213; G0463

== ENCOUNTER 2024-07-17 16:02 | Outpatient (CLI) | payer OTHER, SELFPAY ==
[2024-07-19 06:44] LABS: Progesterone 22.2 ng/mL
== END 2024-07-17 16:03 | disposition home or self-care (01) ==
LOC: ANHGOSHLAB 16:03
PROVIDERS: PCP Family Medicine; Visit Provider Obstetrics & Gynecology
DX: Z32.00 Encounter for pregnancy test, result unknown (principal)
CPT/HCPCS: 36415; 84144; 84702

== ENCOUNTER 2024-07-19 07:46 | Outpatient (CLI) | payer OTHER, SELFPAY ==
--- NOTE | ~2024-07-19 | MR_ITS ---
EXAMINATION: MR foot RT wo con DATE: 07/19/2024 08:23 INDICATION: Right foot metatarsal fracture TECHNIQUE: Magnetic resonance imaging (MRI) of the right fore/mid foot was performed without intraven ous contrast. Sequences included sagittal T1-weighted FSE, sagittal fluid sensitive FSE STIR, coronal PD-weighted FS FSE, coronal T1-weighted FSE, axial PD-weighted FS FSE, and axial PD-weighted FSE. COMPARISON: None FINDINGS: Bone alignment is normal. There is focal thickening of the plantar sided cortex at the mid diaphysis of the third metatarsal which could represent sequela of chronic stress injury, bone island or melorh eostosis. Normal bone marrow signal throughout with no reactive edema, fracture or pathologic marrow replacing process. No periostitis. Joint spaces are normal with no erosions or joint effusions. Lisfr anc ligament complex and the collateral ligament complex at the metatarsophalangeal and interphalange al joints are normal. Flexor and extensor tendons are normal. No tenosynovitis. Intrinsic musculature of the mid and forefoot is normal. No abnormal masses or fluid collections identified. IMPRESSION: 1. Focal cortical thickening along the plantar aspect of the third metatarsal diaphysis which could r epresent sequela of chronic stress injury, bone island or melorheostosis. No periostitis or abnormal marrow signal to suggest acute stress injury or other acute osseous abnormality. Reviewed, dictated and finalized at location A. IMPRESSION: 1. Focal cortical thickening along the plantar aspect of the third metatarsal d iaphysis which could represent sequela of chronic stress injury, bone island or melorheostosis. No periostitis or abnormal marrow signal to suggest acute stre ss injury or other acute osseous abnormality.
== END 2024-07-19 07:47 | disposition home or self-care (01) ==
LOC: MICIMG 07:47
PROVIDERS: PCP Family Medicine; Visit Provider Podiatrist Foot & Ankle Surgery
DX: S92.301A Fracture of unspecified metatarsal bone(s), right foot, initial encounter for closed fracture (principal); X58.XXXA Exposure to other specified factors, initial encounter
CPT/HCPCS: 73718

== ENCOUNTER 2024-12-06 12:21 | Observation (INO) | payer OTHER, SELFPAY ==
[2024-12-06] VITALS (16 sets, daily range): BP systolic 114–137; BP diastolic 58–79; PULSE 63–89; RESP 16–18; TEMP 36.3–37.1; O2SAT 98–100; BMI 31.1
--- NOTE | ~2024-12-06 | CT_ITS ---
EXAMINATION: CTA chest PE protocol DATE: 12/06/2024 16:12 CDT INDICATION: 26 weeks , positive d-dimer (0.54 mcg/mL, normal is less than 0.48 mcg/mL) and sh ortness of breath TECHNIQUE: Computed tomographic angiography (CTA) of the chest was performed with 100 mL Omnipaque-35 0 intravenous contrast. The dose-length product was 230.26 mGy-cm. Maximum intensity projection 3D-re constructions of the aorta and other arteries were constructed by the technologist on a separate work station. COMPARISON: None. FINDINGS/OBSERVATIONS: Examination is nondiagnostic secondary to bolus timing for the detection of pulmonary embolus. PULMONARY ARTERIES: Nondiagnostic. The main pulmonary artery is not enlarged. THORACIC AORTA: No aneurysmal dilatation or dissection is present. The great vessels are intact LUNGS: Significant motion artifact. No consolidation. MEDIASTINUM: No morphologically suspicious or pathologically enlarged lymph nodes are identified with in the mediastinum or bilateral axilla. BONES OF THE CHEST: No acute fracture. No significant degenerative disease. No lytic or blastic lesions. HEART: The heart is enlarged, without pericardial effusion. IMPRESSION: Nondiagnostic for the detection of pulmonary embolus secondary to bolus timing. No thoracic aortic dissection. Reviewed, dictated and finalized at location A.
--- OUTSIDE RECORDS SUMMARY | 2024-12-06 13:46 | XMS_ITS | Encounter Summary ---
Author Organization [facility] Address [address] [place] [address] Care Team Providers Care Social Services Director Name Role Phone Beata Orta MD Primary Care Provider [phone] Encounter Details Date Type Department Care Team (Late st Contact Info) Description 08/19/2021 Lab Requisition [facility] [address] [place] [address] Jeanne Roque MD Social History Tobacco Use Types Packs/Day Years Used Date Smoking Tobacco: Never Assessed Sex and Gender Information Value Date Recorded Sex Assigned at Not on file Gender Identity Not on file Sexual Orientation Not on file documented as of this encounter Plan of Treatment Not on file documented as of this encounter Procedures Procedure Name Priority Date/Time Associated Diagnosis Comments HCG BETA BLOOD QUANTITATIVE STAT 08/19/2021 10:46 AM PIPE [employer]OVERER [employer]ATOR documented in this encounter Results * HCG BETA BLOOD QUANTITATIVE (08/19/2021 10:46 AM PIPE COVERER AND INSULATOR) hCG Quantitative <1.20 mIU/mL 08/19/20 11:25 AM PIPE COVERER AND INSULATOR [facility] Blood BLOOD SPECIMEN / Unknown Venipuncture / Unknown 08/19/2021 10:46 AM PIPE C[employer]ER AND INSULATOR 08/19/2021 10:46 AM PIPE C[employer]ER AND INSULATOR Narrative [facility] - 08/19/2021 11:25 AM PIPE C[employer]ER AND INSULATOR hCG Reference Range, mIU/mL: Males 0-2.0 Non Females 0-6.0 Perimenopausal Females ages 41-55* 0-7.7 Postmenopausal Females age >55* 0-14 Females, Weeks after Last Menstrual Period 0.2-1 week 5-50 1 - 2 weeks 50-500 2 - 3 weeks 100-5000 3 - 4 weeks 500-10,000 4 - 5 weeks 1000-50,000 5 - 6 weeks 10,000-100,000 6 - 8 weeks 15,000-200,000 2 - 3 months 10,000-100,000 Trophoblastic Disease >100,000 *In higher than expected hCG in females > age 40, a serum FSH >20 IU/L makes unlikely. Jeanne Roque MD LAB - CHEMISTRY [place] Organization Address City/State/ZIP Co de Phone Number [facility] [address] [phone] documented in this encounter Visit Diagnoses Not on filedocumented in this encounter Care Teams Social Services Director Relationship Specialty Start Date End Date Beata Orta MD [address] [place] [id number] PCP - General Family Medicine 07/02/21 documented as of this encounter
--- OUTSIDE RECORDS SUMMARY | 2024-12-06 13:46 | XMS_ITS | Referral Summary ---
Author Organization [address] Address [address] [place] [id number] Care Team Providers Care Beauty Culturist Name Role Phone Sly Rasheed MD Primary Care Provider Encounters Date Type Department Care Team Description 10/19/2024 12:51 PM DIP PAINTER - 10/19/2024 11:59 PM DIP PAINTER Hospital Encounter [id number] [place] [address] Discharge Disposition: Discharge to home or self care 10/19/2024 10:30 AM DIP PAINTER Office Visit [facility] Rheumatology at [place] [facility] [address] [place] [address] Cathy Delaney MD VERNON positive (Primary Dx) from Last 3 Months Allergies No known active allergies Medications SUMAtriptan (IMITREX) 100 mg tabletIndications: Migraine Take 1 tablet (100 mg total) by mouth once as needed for migraine Active ALPRAZolam (XANAX) 0.25 mg tablet Take 1 tablet (0.25 mg total) by mouth daily as needed 04/05/20 24 Active hydrocortisone (ANUSOL-HC) 2.5 % rectal cream APPLY RECTALLY TO THE AFFECTED AREA TWICE DAILY NEEDED FOR HEMORRHOIDS 03/22/20 24 Active ondansetron ODT (ZOFRAN-ODT) 4 mg disintegrating tablet Take 1 tablet (4 mg total) by mouth every 8 (eight) hours as needed for nausea or vomiting 20 tablet 05/01/20 24 Active butalbital-acetami nophen-caffeine (ESGIC) 50-325-40 mg per tablet Take 1 tablet by mouth every 6 (six) hours as needed 09/27/19 25 Active mometasone (ELOCON) 0.1 % ointment Apply topically daily 45 g 10/19/19 25 Active Active Problems No known active problems Immunizations Immunization Administration Dates Next Due Influenza, Unspecified 10/19/2024(Deferred: Judy ent decision) PPD TEST 10/12/2022 Tdap 07/02/2022 Social History Tobacco Use Types Packs/Day Years Used Date Smoking Tobacco: Never Smokeless Tobacco: Never Alcohol Use Standard Drinks/Week Comments Yes 0 (1 standard drink = 0.6 oz pur e alcohol) AUDIT-C Answer Date Recorded Q1: How often do you have a drink containing alcohol? Never 05/29/2024 Q2: How many drinks containi ng alcohol do you have on a typical day when you are drinking? Patient does not drink Q3: How often do you have si x or more drinks on one occasion? Never 05/29/2024 Personal Safety Answer Date Recorded Have you ever been in or are you currently in a harmful physical or emotional relationship or is someone making you feel afraid or unsafe? 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 on file Not on file Last Filed Vital Signs Vital Sign Reading Time Taken Comments Blood Pressure 110/68 10/19/2024 10:33 AM DIP PAINTER Pulse 77 10/19/2024 10:33 AM DIP PAINTER Temperature 36.7 C (98 F) 05/29/2024 7:54 AM CDT Respiratory Rate 16 04/12/2024 2:32 PM CDT Oxygen Saturation 98% 10/19/2024 10:33 AM DIP PAINTER Inhaled Oxygen Concentration - - Weight 75.1 kg (165 lb 8 oz) 10/19/2024 10:33 AM DIP PAINTER Height 157.5 cm (5' 2.01 ) 10/19/2024 10:[address] Body Mass Index 30.26 10/19/2024 10:33 AM DIP PAINTER Plan of Treatment Not on file Procedures Procedure Name Priority Date/Time Associated Diagnosis Comments EGFR Routine 10/19/2024 11:32 AM DIP PAINTER VERNON positive PROTEIN, URINE, RANDOM Routine 11:32 AM DIP PAINTER VERNON positive ANTI-DOUBLE STRANDED DNA ANTIBODIES Routine 10/19/2024 11:32 AM DIP PAINTER VERNON positive CBC WITHOUT DIFFERENTIAL Routine 10/19/2024 11:32 AM DIP PAINTER VERNON positive COMPREHENSIVE METABOLIC PANEL Routine 10/19/2024 11:32 AM DIP PAINTER VERNON positive C4 COMPLEMENT Routine 10/19/2024 11:32 AM DIP PAINTER VERNON positive C3 COMPLEMENT Routine 10/19/2024 11:32 AM DIP PAINTER VERNON positive CREATININE, URINE, RANDOM Routine 10/19/2024 11:32 AM DIP PAINTER VERNON positive URINALYSIS AND REFLEX TO MICROSCOPIC Routine 10/19/2024 11:32 AM DIP PAINTER VERNON positive from Last 3 Months Results * Anti-double stranded DNA abs (10/19/2024 11:32 AM DIP PAINTER) dsDNA Ab 1.0 <=4.0 IUnits/mL Comment: Interpretive Data Negative: < or = 4 IUnits/mL Indeterminate: 5 - 9 IUnits/mL Positive: > or = 10 IUnits/mL Current interpretive data was last revised on 2017. Testing performed by: [facility], [address], [place]., [address] Blood 10/19/2024 11:3 2 AM DIP PAINTER 10/19/2024 8:18 PM DIP PAINTER Cathy Delaney MD LAB BLOOD ORDERABLES Final Result Performing Organization Address [facility] Co de Phone Number [facility] [address] [facility] [place] [address] * eGFR (10/19/2024 11:32 AM DIP PAINTER) eGFR >90 >=60 mL/min/1. 73 m2 Comment: Interpretive Data Reference Interval Normal >/= 90 mL/min/1.73m2 Mildly decreased* 60 - 89 mL/min/1.73m2 Mildly to moderately decreased 45 - 59 mL/min/1.73m2 Moderately to severely decreased 30 - 44 mL/min/1.73m2 Severely decreased 15 - 29 mL/min/1.73m2 Kidney Failure < 15 mL/min/1.73m2 *Relative to young adult level Estimated glomerular filtration rate is determined by the 2020 CKD-EPI equation recommended by the National Kidney Foundation (A Unifying Approach to GFR Estimation: Recommendations of the NKF-ASK Task Force on Reassessing the Inclusion of Race in Diagnosing Kidney Disease, JASN 2020). The CKD-EPI equation should not be used for patients with unstable renal function and has not been validated in children and those over 70. Current interpretive data was last reviewed 2021. Blood 10/19/2024 11:3 2 AM DIP PAINTER 10/19/2024 4:45 PM DIP PAINTER Cathy Delaney MD LAB BLOOD ORDERABLES Final Result Performing Organization Address [facility] Co de Phone Number [facility] [address] [place] [address] * C4 complement (10/19/2024 11:32 AM DIP PAINTER) Complement C4 12 10 - 40 mg/dL Blood 10/19/2024 11:3 2 AM DIP PAINTER 10/19/2024 3:28 PM DIP PAINTER Cathy Delaney MD LAB BLOOD ORDERABLES Final Result Performing Organization Address [facility] Co de Phone Number [facility] [address] [facility] [place] [address] * Urinalysis reflex to microscopic (10/19/2024 11:32 AM DIP PAINTER) Color, ur Yellow Yellow Clarity, ur Clear Clear [facility] Specific gravity, ur 1.012 1.003 - 1.030 [facility] pH, urine 7.0 [facility] Comment: Interpretive Data U rine pH is affected by diet, medications, systemic acid-base disturbances, and renal tubular function. pH may affect urinary stone formation. For example, urine pH below 6.0 may help reduce the tendency for calcium phosphate stones and pH greater than 6.0 may reduce the tendency for uric acid stone formation. Source: [facility] Current Interpretive Data was last revised on 2017 Protein, ur ql Negative Negative [facility] Glucose, ur ql Negative Negative [facility] Ketones, ur Negative Negative [facility] Bilirubin, ur Negative Negative [facility] Blood, ur Negative Negative [facility] Urobilinogen, ur <2.0 <2.0 mg/dL [facility] Nitrite, ur Negative Negative [facility] Leukocyte esterase, ur Negative Negative [facility] UA reflex comment Reflex conditions for microscopic UA not met. [facility] Urine 10/19/2024 11:3 2 AM DIP PAINTER 10/19/2024 11:32 AM DIP PAINTER Cathy Delaney MD LAB URINE ORDERABLES Final Result Performing Organization Address [facility]/ZIP Co de Phone Number [facility] [address] [place] [address] * Protein, urine, random (10/19/2024 11:32 AM DIP PAINTER) Protein, ur, quant 5.5 mg/dL Comment: Interpretive Data No reference range established. Current interpretive data was last revised 2019. Urine 10/19/2024 11:3 2 AM DIP PAINTER 10/19/2024 11:32 AM DIP PAINTER Cathy Delaney MD LAB URINE ORDERABLES Final Result Performing Organization Address [facility] de Phone Number [facility] [address] [facility] [place] [address] * Creatinine, urine, random (10/19/2024 11:32 AM DIP PAINTER) Pathologist [facility] Creatinine Ur 64.4 mg/dL Comment: Interpretive Data No reference range established. Current interpretive data was last revised 2019. Urine 10/19/2024 11:3 2 AM DIP PAINTER 10/19/2024 11:32 AM DIP PAINTER Cathy Delaney MD LAB URINE ORDERABLES Final Result Performing Organization Address [facility] de Phone Number [facility] [address] Department [place] [address] * (ABNORMAL) CBC without differential (10/19/2024 11:32 AM DIP PAINTER) [facility] WBC 8.9 3.8 - 9.9 K/cumm Hgb 11.2(L) 11.9 - 15.5 g/dL [facility] Hct 34.5(L) 35.6 - 45.5 % [facility] Plt 193 150 - 400 K/cumm [facility] MPV 11.9 9.1 - 12.3 fL [facility] RBC 3.75(L) 3.90 - 5.20 M/cumm [facility] MCV 92.0 81.3 - 96.4 fL [facility] MCH 29.9 27.1 - 33.3 pg [facility] MCHC 32.5 32.3 - 35.7 g/dL [facility] RDW CV 14.5 11.1 - 14.9 % [facility] RDW SD 48.7(H) 35.7 - 48.1 fL [facility] NRBC abs 0.00 0.00 - 0.01 K/cumm [facility] Blood 10/19/2024 11:3 2 AM DIP PAINTER 10/19/2024 4:11 PM DIP PAINTER Cathy Delaney MD LAB BLOOD ORDERABLES Final Result Performing Organization Address [facility]ZIP Co de Phone Number [facility] [address] Department [place] [address] * C3 complement (10/19/2024 11:32 AM DIP PAINTER) [facility] Complement C3 141 90 - 180 mg/dL Blood 10/19/2024 11:3 2 AM DIP PAINTER 10/19/2024 3:28 PM DIP PAINTER Cathy Delaney MD LAB BLOOD ORDERABLES Final Result Performing Organization Address [facility] de Phone Number [facility] [address] Department [place] [address] * (ABNORMAL) Comprehensive metabolic panel (10/19/2024 11:32 AM DIP PAINTER) [facility] Sodium 137 135 - 145 mmol/L Potassium, pl 3.6 3.3 - 4.9 mmol/L [facility] Chloride 104 97 - 110 mmol/L [facility] CO2 21(L) 22 - 32 mmol/L [facility] Anion gap 12 2 - 15 mmol/L [facility] BUN 7 6 - 25 mg/dL [facility] Creatinine 0.61 0.60 - 1.10 mg/dL [facility] Glucose 84 70 - 199 mg/dL [facility] Comment: Interpretive Data Fasting glucose >/= 126 mg/dl is diagnostic for diabetes. Fasting is defined as no caloric intake for at least 8 hours. Fasting glucose between 100 mg/dl to 125 mg/dl is diagnostic of prediabetes. In a patient with classic symptoms of hyperglycemia or hyperglycemic crisis, a random glucose >/= 200 mg/dl is diagnostic for diabetes. In the absence of unequivocal hyperglycemia, results should be confirmed by repeat testing. The classification and Diagnosis of Diabetes Diabetes Care 2021; 46: S19-S40. Current interpretive data was last revised 2022. Calcium 9.2 8.5 - 10.3 mg/dL [facility] Bilirubin, total 0.4 0.1 - 1.2 mg/dL [facility] Protein, pl 6.4(L) 6.5 - 8.5 g/dL [facility] Albumin 3.5 3.5 - 5.0 g/dL [facility] Alk phos 51 40 - 130 Units/L [facility] ALT 21 7 - 45 Units/L [facility] AST 23 10 - 45 Units/L [facility] Blood 10/19/2024 11:3 2 AM DIP PAINTER 10/19/2024 4:45 PM DIP PAINTER us Cathy Delaney MD LAB BLOOD ORDERABLES Final Result [facility] [address] Department [place] [address] from Last 3 Months Insurance [facility] CHOICE PLUS Member Subscriber Plan / Payer (Ef fective 2023-Present) Name:Natalia Weiss Nicolas Relation to Subscriber:Self Name:Natalia Weiss Payer ID:[id number] (NAIC) Type:[facility] HMO/PPO Address: [place] [phone] [facility] CHOICE PLUS Care Teams Beauty Culturist Relationship Specialty Start Date End Date Sly Rasheed MD [address] [place] [address] PCP - General Family Practice 04/06/24
--- OUTSIDE RECORDS SUMMARY | 2024-12-06 13:46 | XMS_ITS | Encounter Summary ---
Author Organization [facility] Address [address] [place] [address] Care Team Providers Care Insurance Sales Professional Name Role Phone Erica Laura MD Primary Care Provider Unavailable Sly Rahseed MD Primary Care Provider Encounter Details Date Type Department Care Team (Late st Contact Info) Description 07/24/2017 [place] [address] Erica Laura MD Social History Tobacco Use Types Packs/Day Years Used Date Smoking Tobacco: Never Assessed Comments Unknown Sex and Gender Information Value Date Recorded Sex Assigned at Not on file Legal Sex Female 7:52 PM CDT Gender Identity Not on file Sexual Orientation Not on file documented as of this encounter Plan of Treatment Not on file documented as of this encounter Visit Diagnoses Not on filedocumented in this encounter Care Teams Insurance Sales Professional Relationship Specialty Start Date End Date Erica Laura MD PCP - General 05/30/14 Sly Rasheed MD [address] [place] [address] PCP - General FAMILY PRACTICE 04/03/24 documented as of this encounter
--- OUTSIDE RECORDS SUMMARY | 2024-12-06 13:46 | XMS_ITS | Clinical Summary ---
Author Organization [facility] Address [address] [place] [place] [address] Care Team Providers Care Shot Blast Equipment Operator Name Role Phone Beata Orta MD Primary Care Provider Source Comments [facility],non-[facility] Affiliates and Associated Physician Practices is amultiple site organization consisting of ambulatory clinics and hospital sitesin [place], [place], [place] and [place]. This disclosure is being madepursuant to the Care Everywhere program and may not contain all information available regarding this patient. Last updated 18.[facility] Allergies No known active allergies Social History Tobacco Use Types Packs/Day Years Used Date Smoking Tobacco: Never Assessed Sex and Gender Information Value Date Recorded Sex Assigned at Not on file Gender Identity Not on file Sexual Orientation Not on file Plan of Treatment Health Maintenance Due Date Last Done Comments PAP SMEAR 1995 HIV SCREENING 2010 DTAP/TDAP/TD VACCINES (1 - Tdap) 2014 HEPATITIS B VACCINE (1 of 3 - 19+ 3-dose series) 2014 COVID-19 VACCINE (2 - 2023-2 5 season) 2024 12/30/2020 INFLUENZA VACCINE (#1) 2024 DEPRESSION SCREENING 09/20/2024 ZOSTER VACCINE (1 of 2) 2045 HEPATITIS C SCREENING Completed 04/03/2024 HIB VACCINE Aged Out No longer eligi ble based on patient's age to complete this topic HPV VACCINE Aged Out No longer eligi ble based on patient's age to complete this topic MENINGOCOCCAL (Group B) VACC INE SHARED DECISION-MAKING Aged Out No longer eligibl e based on patient's age to complete this topic MENINGOCOCCAL GROUPS A/C/Y/W VACCINE Aged Out No longer eligible b ased on patient's age to complete this topic PNEUMOCOCCAL VACCINE Aged Out No long er eligible based on patient's age to complete this topic Care Teams Shot Blast Equipment Operator Relationship Specialty Start Date End Date Beata Orta MD [address] [place] [id number] PCP - General Family Medicine 07/02/21
--- OUTSIDE RECORDS SUMMARY | 2024-12-06 13:46 | XMS_ITS | Clinical Summary ---
Author Organization [facility] Address [address] [place] [address] Care Team Providers Care Logistics And Planning Manager Name Role Phone Sly Rasheed MD Primary Care Provider Allergies No known active allergies Medications No known medications Social History Tobacco Use Types Packs/Day Years Used Date Smoking Tobacco: Never Smokeless Tobacco: Never Tobacco Cessation:Counseling Given: Not Answered Alcohol Use Standard Drinks/Week Comments Yes 0 (1 standard drink = 0.6 oz pur e alcohol) rare Comments No Sex and Gender Information Value Date Recorded Sex Assigned at Not on file Legal Sex Female 7:52 PM CDT Gender Identity Not on file Sexual Orientation Not on file Last Filed Vital Signs Vital Sign Reading Time Taken Comments Blood Pressure 110/79 04/03/2024 7:06 PM CDT Pulse 70 04/03/2024 7:06 PM CDT Temperature 36.8 C (98.2 F) 04/03/2024 3:53 PM CDT Respiratory Rate 21 04/03/2024 7:06 PM CDT Oxygen Saturation 100% 04/03/2024 7:06 PM CDT Inhaled Oxygen Concentration - - Weight 63.5 kg (140 lb) 04/03/2024 3:53 PM CDT Height 157.5 cm (5' 2 ) 04/03/2024 3:53 PM CDT Body Mass Index 25.61 04/03/2024 3:53 PM CDT Plan of Treatment Health Maintenance Due Date Last Done Comments Cervical Cancer Screening Pap Smear (Age 21 to 29) Every 3 Years 1995 Cervical Cancer Screening 1995 Annual Physical 1998 COVID-19 Vaccine ( season) 2024 09/17/2021, 12/30/2020 Influenza Adult (#1) 2024 DTaP, Tdap and Td Vaccines (8 - Td or Tdap) 07/02/2032 07/02/2022, 03/18/2009, 02/09/2000, Additional history exists Hepatitis B Vaccines Completed 1995, 1995, 1995 HPV Vaccines Completed 09/26/2009, 09/2008, 03/18/2009 Meningococcal Vaccine Completed 04/27/2013, 009 Hepatitis C Completed 04/03/2024 Meningococcal B Vaccine Aged Out No l onger eligible based on patient's age to complete this topic Pneumococcal Vaccine: Pediatrics (0 to 5 Years) and At-Risk Patients (6 to 64 Years) Aged Out No longer eligible based on patient's age to complete this topic RSV Immunizations Under 20 Months Aged Out No longer eligible based on patient's age to complete this topic Procedures Procedure Name Priority Date/Time Associated Diagnosis Comments HEPATITIS PANEL,ACUTE STAT 04/03/2024 6:54 PM CDT from Last 3 Months or Most Recently Relevant to Health Maintenance Results * HEPATITIS PANEL,ACUTE (04/03/2024 6:54 PM CDT) HEPATITIS B SURFACE AG NON-REACTI VE NON-REACTI VE 04/03/2024 8:[address] [facility] HEP B CORE IGM NON-REACTI VE NON-REACTI VE 04/03/2024 11:[address] [facility] HAV IGM NON-REACTI VE NON-REACTI VE 04/03/2024 11:[address] [facility] HEPATITIS C AB NON-REACTI VE NON-REACTI VE 04/03/2024 11:[address] [facility] 04/03/2024 6:54 PM CDT Rachana Diaz MD LABORATORY Final Resul t [facility] [address] [place] [address], from Last 3 Months or Most Recently Relevant to Health Maintenance Insurance [facility] Care Teams Logistics And Planning Manager Relationship Specialty Start Date End Date Sly Rasheed MD [address] [place] [address] PCP - General FAMILY PRACTICE 04/03/24
--- OUTSIDE RECORDS SUMMARY | 2024-12-06 13:46 | XMS_ITS | Clinical Summary ---
Author Organization [facility] Address [address] [place] [address] Care Team Providers Care Occupational Health Nurse Name Role Phone Sly Rasheed MD Primary Care Provider Allergies No known active allergies Medications SUMAtriptan [...] Active Active Problems No known active problems Encounters Date Type Department Care Team Description 10/19/2024 12:51 PM FLOODPLAIN MANAGER - 10/19/2024 11:59 PM FLOODPLAIN MANAGER Hospital Encounter [address] [place] [address] Discharge Disposition: Discharge to home or self care 10/19/2024 10:30 AM FLOODPLAIN MANAGER Office Visit [facility] at [facility] [address] [place] [address] Cathy Delaney MD VERNON positive (Primary Dx) from Last 3 Months Immunizations Immunization Administration Dates Next Due Influenza, Unspecified 10/19/2024(Deferred: Judy ent decision) PPD TEST 10/12/2022 Tdap 07/02/2022 Surgical History Surgery Date Site/Laterality Comments WRIST SURGERY 06/20/2016 - 07/20/2016 wrist arthroscopy Family History Medical History Relation Name Comments No Known Problems Father No Known Problems Mother Relation Name Status Comments Father Mother Social History Tobacco Use Types Packs/Day Years [...] on file Legal Sex Female 2:34 AM FLOODPLAIN MANAGER Gender Identity Female 10/01/2019 10:17 AM FLOODPLAIN MANAGER Sexual Orientation Straight 10/01/2019 10 :17 AM FLOODPLAIN MANAGER 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 on file Not on file Obstetrics History Last Filed Vital Signs Vital Sign Reading Time Taken Comments Blood Pressure 110/68 10/19/2024 10:33 AM FLOODPLAIN MANAGER Pulse 77 10/19/2024 10:33 AM FLOODPLAIN MANAGER Temperature 36.7 C (98 F) 05/29/2024 7:54 AM CDT Respiratory Rate 16 04/12/2024 2:32 PM CDT Oxygen Saturation 98% 10/19/2024 10:33 AM FLOODPLAIN MANAGER Inhaled Oxygen Concentration - - Weight 75.1 kg (165 lb 8 oz) 10/19/2024 10:33 AM FLOODPLAIN MANAGER Height 157.5 cm (5' 2.01 ) 10/19/2024 10:[address] Body Mass Index 30.26 10/19/2024 10:33 AM FLOODPLAIN MANAGER Plan of Treatment Health Maintenance Due Date Last Done Comments Cervical Cancer Screening 1995 Depression Screening 1995 Hepatitis C Screening 1995 Varicella Vaccines (1 of 2 - 13+ 2-dose series) 2008 Hepatitis B Screening 2013 Regular Well Visit/Exam 18-64 2013 Covid-19 Vaccine (3 - 2023-2 5 season) 2024 09/17/2021, 12/30/2020 Influenza Vaccine (#1) 2024 DTaP/Tdap/Td Vaccine (2 - Td or Tdap) 07/02/2032 07/02/2022 HPV Vaccines Aged Out No longer eligi ble based on patient's age to complete this topic Pneumococcal vaccine <65 Aged Out No longer eligible based on patient's age to complete this topic Procedures Procedure Name Priority Date/Time Associated Diagnosis Comments EGFR Routine 10/19/2024 11:32 AM FLOODPLAIN MANAGER VERNON positive PROTEIN, URINE, RANDOM Routine 11:32 AM FLOODPLAIN MANAGER VERNON positive ANTI-DOUBLE STRANDED DNA ANTIBODIES Routine 10/19/2024 11:32 AM FLOODPLAIN MANAGER VERNON positive CBC WITHOUT DIFFERENTIAL Routine 10/19/2024 11:32 AM FLOODPLAIN MANAGER VERNON positive COMPREHENSIVE METABOLIC PANEL Routine 10/19/2024 11:32 AM FLOODPLAIN MANAGER VERNON positive C4 COMPLEMENT Routine 10/19/2024 11:32 AM FLOODPLAIN MANAGER VERNON positive C3 COMPLEMENT Routine 10/19/2024 11:32 AM FLOODPLAIN MANAGER VERNON positive CREATININE, URINE, RANDOM Routine 10/19/2024 11:32 AM FLOODPLAIN MANAGER VERNON positive URINALYSIS AND REFLEX TO MICROSCOPIC Routine 10/19/2024 11:32 AM FLOODPLAIN MANAGER VERNON positive from Last 3 Months Results * Anti-double stranded DNA abs (10/19/2024 11:32 AM FLOODPLAIN MANAGER) dsDNA Ab 1.0 <=4.0 IUnits/mL Comment: Interpretive Data Negative: < or = 4 IUnits/mL Indeterminate: 5 - 9 IUnits/mL Positive: > or = 10 IUnits/mL Current interpretive data was last revised on 2017. Testing performed by: [facility], [address] [place]., [address] Blood 10/19/2024 11:3 2 AM FLOODPLAIN MANAGER 10/19/2024 8:18 PM FLOODPLAIN MANAGER Cathy Delaney MD LAB BLOOD ORDERABLES Final Result [facility] [address] [place] [address] * eGFR (10/19/2024 11:32 AM FLOODPLAIN MANAGER) eGFR >90 >=60 mL/min/1. 73 m2 Comment: [...] reviewed 2021. Blood 10/19/2024 11:3 2 AM FLOODPLAIN MANAGER 10/19/2024 4:45 PM FLOODPLAIN MANAGER us Cathy Delaney MD LAB BLOOD ORDERABLES Final Result Performing Organization Address [facility] Co de Phone Number [facility] [address] [facility] [place] [address] * C4 complement (10/19/2024 11:32 AM FLOODPLAIN MANAGER) Complement C4 12 10 - 40 mg/dL Blood 10/19/2024 11:3 2 AM FLOODPLAIN MANAGER 10/19/2024 3:28 PM FLOODPLAIN MANAGER Cathy Delaney MD LAB BLOOD ORDERABLES Final Result Performing Organization Address [facility] de Phone Number [facility] [address] [facility] [place] [address] * Urinalysis reflex to microscopic (10/19/2024 11:32 AM FLOODPLAIN MANAGER) Color, ur Yellow Yellow Clarity, ur Clear Clear [facility] Specific gravity, ur 1.012 1.003 - 1.030 [facility] pH, urine 7.0 [facility] Comment: Interpretive Data U rine pH is affected by diet, medications, systemic acid-base disturbances, and renal tubular function. pH may affect urinary stone formation. For example, urine pH below 6.0 may help reduce the tendency for calcium phosphate stones and pH greater than 6.0 may reduce the tendency for uric acid stone formation. Source: [facility] [place] Current Interpretive Data was last revised on 2017 Protein, ur ql Negative Negative [facility] Glucose, ur ql Negative Negative [facility] Ketones, ur Negative Negative [facility] Bilirubin, ur Negative Negative [facility] Blood, ur Negative Negative [facility] Urobilinogen, ur <2.0 <2.0 mg/dL [facility] Nitrite, ur Negative Negative [facility] Leukocyte esterase, ur Negative Negative [facility] UA reflex comment Reflex conditions for microscopic UA not met. [facility] Urine 10/19/2024 11:3 2 AM FLOODPLAIN MANAGER 10/19/2024 11:32 AM FLOODPLAIN MANAGER Cathy Delaney MD LAB URINE ORDERABLES Final Result Performing Organization Address [facility] de Phone Number [facility] [address] [place] [address] * Protein, urine, random (10/19/2024 11:32 AM FLOODPLAIN MANAGER) Protein, ur, quant 5.5 mg/dL Comment: Interpretive Data No reference range established. Current interpretive data was last revised 2019. Urine 10/19/2024 11:3 2 AM FLOODPLAIN MANAGER 10/19/2024 11:32 AM FLOODPLAIN MANAGER Cathy Delaney MD LAB URINE ORDERABLES Final Result Performing Organization Address [facility] de Phone Number [facility] [address] [place] [address] * Creatinine, urine, random (10/19/2024 11:32 AM FLOODPLAIN MANAGER) Creatinine Ur 64.4 mg/dL Comment: Interpretive Data No reference range established. Current interpretive data was last revised 2019. Urine 10/19/2024 11:3 2 AM FLOODPLAIN MANAGER 10/19/2024 11:32 AM FLOODPLAIN MANAGER Cathy Delaney MD LAB URINE ORDERABLES Final Result Performing Organization Address [facility] de Phone Number [facility] [address] [place] [address] * (ABNORMAL) CBC without differential (10/19/2024 11:32 AM FLOODPLAIN MANAGER) WBC 8.9 3.8 - 9.9 K/cumm Hgb 11.2(L) 11.9 - 15.5 g/dL [facility] Hct 34.5(L) 35.6 - 45.5 % [facility] Plt 193 150 - 400 K/cumm [facility] MPV 11.9 9.1 - 12.3 fL [facility] RBC 3.75(L) 3.90 - 5.20 M/cumm [facility] MCV 92.0 81.3 - 96.4 fL [facility] MCH 29.9 27.1 - 33.3 pg [facility] MCHC 32.5 32.3 - 35.7 g/dL [facility] RDW CV 14.5 11.1 - 14.9 % [facility] RDW SD 48.7(H) 35.7 - 48.1 fL [facility] NRBC abs 0.00 0.00 - 0.01 K/cumm [facility] Blood 10/19/2024 11:3 2 AM FLOODPLAIN MANAGER 10/19/2024 4:11 PM FLOODPLAIN MANAGER Cathy Delaney MD LAB BLOOD ORDERABLES Final Result Performing Organization Address [facility] Co de Phone Number [facility] [address] [facility] [place] [address] * C3 complement (10/19/2024 11:32 AM FLOODPLAIN MANAGER) Pathologist [facility] Complement C3 141 90 - 180 mg/dL Blood 10/19/2024 11:3 2 AM FLOODPLAIN MANAGER 10/19/2024 3:28 PM FLOODPLAIN MANAGER Cathy Delaney MD LAB BLOOD ORDERABLES Final Result Performing Organization Address City[facility]/ZIP Co de Phone Number [facility] [address] [place] [address] * (ABNORMAL) Comprehensive metabolic panel (10/19/2024 11:32 AM FLOODPLAIN MANAGER) Sodium 137 135 - 145 mmol/L Potassium, pl 3.6 3.3 - 4.9 mmol/L [facility] Chloride 104 97 - 110 mmol/L [facility] CO2 21(L) 22 - 32 mmol/L [facility] Anion gap 12 2 - 15 mmol/L [facility] BUN 7 6 - 25 mg/dL [facility] Creatinine 0.61 0.60 - 1.10 mg/dL [facility] Glucose 84 70 - 199 mg/dL [facility] Comment: Interpretive Data Fasting glucose >/= 126 [...] 2022. Calcium 9.2 8.5 - 10.3 mg/dL [facility] Bilirubin, total 0.4 0.1 - 1.2 mg/dL [facility] Protein, pl 6.4(L) 6.5 - 8.5 g/dL [facility] Albumin 3.5 3.5 - 5.0 g/dL [facility] Alk phos 51 40 - 130 Units/L [facility] ALT 21 7 - 45 Units/L [facility] AST 23 10 - 45 Units/L [facility] Blood 10/19/2024 11:3 2 AM FLOODPLAIN MANAGER 10/19/2024 4:45 PM FLOODPLAIN MANAGER us Cathy Delaney MD LAB BLOOD ORDERABLES Final Result [facility] [address] [place] [address] from Last 3 Months Insurance [facility]ICE PLUS Care Teams Occupational Health Nurse Relationship Specialty Start Date End Date Sly Rasheed MD [id number] [place] [address] [place] [id number] PCP - General Family Practice 04/06/24
--- NOTE | 2024-12-06 14:03 | ED_ITS ---
HPI - SOB/Dyspnea General Chief Complaint: Shortness of Breath/Dyspnea <PRISCILA Rodriguez Last Filed: 12/07/24 09:16> Stated Complaint: SOB <PRISCILA Rodriguez Last Filed: 12/07/24 09:16> Time Seen by Provider: 12/06/24 14:03 <PRISCILA Rodriguez Last Filed: 12/07/24 09:16> Focused HPI: Patient is a 29-year-old female who presents the ED with report of shortness of breath. Patient reports she has been having intermittent shortness breath since Wednesday. States it is worse in the mornings and at night. States her pulse ox has been dropping into low 90s while even at rest. C/o chest heaviness, pain with taking deep breaths. She then had a near syncopal episode today at work, dizzy and lightheaded. Contacted her OBGYN, Dr. Juan C Cespedes and was referred to the ED for further evaluation and to r/o PE. Reports FHx of PE. Still feels like shes floating somewhat. Patient is currently 26 weeks gestation. Has had some swelling in her lower extremities but had this with her previous as well. Denies abd pain, vaginal bleeding. GENERAL: Well-appearing, well-nourished, and in no acute distress. HEAD: Normocephalic, atraumatic. CHEST: Clear to auscultation. ?No respiratory distress. No focal lung sounds. HEART: Regular rate and rhythm.? ABD: Uterus gravid, nontender. NEURO: ?Alert and oriented x3. Patient screened in triage and initial orders placed.? ?Additional care and disposition to be based upon?diagnostic testing and treatment. <PRISCILA Rodriguez Last Filed: 12/07/24 09:16> Source: patient <PRISCILA Rodriguez Last Filed: 12/07/24 09:16> Mode of arrival: ambulatory <PRISCILA Rodriguez Last Filed: 12/07/24 09:16> Limitations: no limitations <PRISCILA Rodriguez Last Filed: 12/07/24 09:16> History of Present Illness HPI Narrative: I agree with the above HPI <Bill Diaz MD - Last Filed: 12/09/24 07:02> Related Data Allergies/Adverse Reactions: Allergies Allergy/AdvReac Type Severity Reaction Status Date / Time No Known Allergies Allergy Verified 12/06/24 21:22 <Shila Lizarraga PA-C - Last Filed: 12/07/24 09:16> Review of Systems 2 Review of Systems: All systems reviewed & are unremarkable except as noted in HPI and below <Bill Diaz MD - Last Filed: 12/09/24 07:02> PMFSH Past Medical History Medical History: Medical History Anxiety Migraine headache without aura Overweight (BMI 25.0-29.9) Eczema Depression <Shila Lizarraga PA-C - Last Filed: 12/07/24 09:16> Surgical History Surgical History: Surgical History Previous section History of tonsillectomy 08/10/23 <Shila Lizarraga PA-C - Last Filed: 12/07/24 09:16> Family History Family History: Family History Grandparent Depression Sibling Pulmonary embolism Father Obesity Other Diabetes mellitus Family history of arthritis Family history of heart disease in male family member before age 55 Hypertension <Shila Lizarraga PA-C - Last Filed: 12/07/24 09:16> Social History Social History: Social History Social History: Lives at home with her significant other and children. Surrogate decision maker: Chauncey Clayton, boyfriend. Code Status: Full Code. Smoking status: Never smoker Second hand tobacco smoke exposure: Yes Alcohol intake: never Alcohol use details: VERY RARE Substance use: never Substance use type: does not use Lack of Transportation: No Lack of Food: Never True Current Housing: I Have Housing Concerned About Future Housing: No Difficulty Paying Gas/Electric Bills: No Difficulty Paying for Meds: No Currently Unemployed: No Education: Master's Degree or Higher Difficulty w/ Childcare or Family Care: No Living arrangements: with family Occupation/Education: occupation 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 Spiritual care concerns: No <PRISCILA Rodriguez Last Filed: 12/07/24 09:16> Exam 2 Narrative: APPEARANCE: Well appearing, no pain, no distress, well-nourished. HEAD: normocephalic, atraumatic. EYES: PERRLA/EOMI, conjunctivae clear. NOSE: Normal no drainage EARS:TMS clear with good light reflex. THROAT: Pharynx clear, no exudate. NECK: Supple. No adenopathy, no masses. RESPIRATORY: Airway patent, respirations nonlabored. Clear to auscultation bilaterally, no rales, rhonchi, wheezing. CARDIOVASCULAR: Regular rate and rhythm without murmurs rubs or gallops. ABDOMINAL: Soft, nontender, nondistended, normal bowel sounds MUSCULOSKELETAL: Moves all extremities. Strength/ROM intact, No edema, No calf tenderness. NEURO: Alert. Cranial nerves II through XII intact. Good gait. Good coordination SKIN: Warm, dry. Normal Color <Bill Diaz MD - Last Filed: 12/09/24 07:02> Course Vital Signs Vital signs: Vital Signs Temperature 97.6 F 12/06/24 12:23 Pulse Rate 87 12/06/24 12:23 Respiratory Rate 16 12/06/24 12:23 Blood Pressure 137/62 12/06/24 12:23 Pulse Oximetry 100 12/06/24 12:23 Temperature 98.2 F 12/07/24 07:03 Pulse Rate 75 12/07/24 07:34 Respiratory Rate 16 12/07/24 07:03 Blood Pressure 98/49 L 12/07/24 07:34 Pulse Oximetry 100 12/07/24 07:33 Oxygen Delivery Room Air 12/06/24 21:33 <PRISCILA Rodriguez Last Filed: 12/07/24 09:16> Vital Signs Temperature 97.6 F 12/06/24 12:23 Pulse Rate 87 12/06/24 12:23 Respiratory Rate 16 12/06/24 12:23 Blood Pressure 137/62 12/06/24 12:23 Pulse Oximetry 100 12/06/24 12:23 Temperature 98.2 F 12/07/24 07:03 Pulse Rate 75 12/07/24 07:34 Respiratory Rate 16 12/07/24 07:03 Blood Pressure 98/49 L 12/07/24 07:34 Pulse Oximetry 100 12/07/24 07:33 Oxygen Delivery Room Air 12/06/24 21:33 <Bill Diaz MD - Last Filed: 12/09/24 07:02> MDM - SOB/Dyspnea MDM Narrative Medical decision making narrative: MSE by ESTELA in triage. <Shila Lizarraga PA-C - Last Filed: 12/07/24 09:16> MSE by ESTELA in triage. Patient's initial CT scan was inconclusive due to poor timing with contrast. Case was this case with OB and they were comfortable admitting the patient for MRI versus a repeat CT scan. Patient prefer the MRI and admission versus outpatient observation, or a repeat CT scan. At time of admission patient was not hypoxic nor tachycardic and was well-appearing. Patient states her symptoms had improved. All questions concerns were addressed and patient was admitted to OB Gyne. <Bill Diaz MD - Last Filed: 12/09/24 07:02> Differential Diagnosis Differential diagnosis: Likely other (Pneumonia, pulmonary edema, pulmonary embolism) <Bill Diaz MD - Last Filed: 12/09/24 07:02> Lab Data Attestation: I reviewed the patient's lab results. <Bill Diaz MD - Last Filed: 12/09/24 07:02> Result diagrams: 12/06/24 14:19 12/06/24 14:19 <Shila Lizarraga PA-C - Last Filed: 12/07/24 09:16> Labs: Lab Results 12/06/24 Range/Units 14:19 WBC 11.2 H (4.5-10.0) K/mm3 RBC 3.80 L (4.2-5.4) M/mm3 Hgb 11.0 L (12.0-15.0) g/dL Hct 34.1 L (37.0-47.0) % MCV 89.7 (80-100) fl MCH 28.9 (26-34) pg MCHC 32.3 (32-36) g/dl RDW 13.1 (11.5-14.5) % Plt Count 185 (150-375) k/mm3 MPV 11.3 H (7.4-10.4) fl Immature Gran % (Auto) 0.4 (0-0.5) % Neut % (Auto) 70.1 (45.5-73.1) % Lymph % (Auto) 21.7 (18.3-44.2) % [place] % (Auto) 6.5 (2.6-8.5) % Eos % (Auto) 1.0 (0-4.4) % Baso % (Auto) 0.3 (0.2-1.2) % Lymph # (Auto) 2.43 (0.9-3.2) K/mm3 [place] # (Auto) 0.7 H (0.1-0.6) K/mm3 Eos # (Auto) 0.1 (0-0.3) K/mm3 Baso # (Auto) 0.0 (0.0-0.1) K/mm3 Abs Immat Gran (auto) 0.05 H (0.00-0.031) K/mm3 Absolute Neuts (auto) 7.8 H (1.3-6.7) K/mm3 Absolute Nucleated RBC 0.000 (0.0-0.012) K/mm3 Nucleated RBC % 0.0 (0.0-0.2) % PT 12.3 (11.1-14.7) Seconds INR 0.9 APTT 26.4 (22.3-36.8) Seconds D-Dimer 0.54 H (<0.48) ug/mL Sodium 137 (137-145) mmol/L Potassium 3.8 (3.4-5.0) mmol/L Chloride 107 (98-107) mmol/L Carbon Dioxide 20 L (22-30) mmol/L Anion Gap 10 (4-12) mmol/L BUN 5 L D (7-17) mg/dL Creatinine 0.52 L (0.7-1.0) mg/dL Estim Creat Clear Calc 131 ml/min Estimated GFR > 60 (59 - ) Glucose 85 (65-110) mg/dL Calcium 9.1 (8.4-10.2) mg/dL Total Bilirubin 0.6 (0.2-1.3) mg/dL AST 21 (14-36) U/L ALT 17 (6-35) U/L Alkaline Phosphatase 70 (38-126) U/L Troponin I < 0.012 (0.000-0.034) ng/mL NT-Pro-B Natriuret Pep < 20 (19.9-100) pg/mL Total Protein 7.0 (6.3-8.2) g/dL Albumin 3.9 (3.5-5.1) g/dL <Shila Lizarraga PA-C - Last Filed: 12/07/24 09:16> Lab Results 12/06/24 Range/Units 14:19 WBC 11.2 H (4.5-10.0) K/mm3 RBC 3.80 L (4.2-5.4) M/mm3 Hgb 11.0 L (12.0-15.0) g/dL Hct 34.1 L (37.0-47.0) % MCV 89.7 (80-100) fl MCH 28.9 (26-34) pg MCHC 32.3 (32-36) g/dl RDW 13.1 (11.5-14.5) % Plt Count 185 (150-375) k/mm3 MPV 11.3 H (7.4-10.4) fl Immature Gran % (Auto) 0.4 (0-0.5) % Neut % (Auto) 70.1 (45.5-73.1) % Lymph % (Auto) 21.7 (18.3-44.2) % [place] % (Auto) 6.5 (2.6-8.5) % Eos % (Auto) 1.0 (0-4.4) % Baso % (Auto) 0.3 (0.2-1.2) % Lymph # (Auto) 2.43 (0.9-3.2) K/mm3 [place] # (Auto) 0.7 H (0.1-0.6) K/mm3 Eos # (Auto) 0.1 (0-0.3) K/mm3 Baso # (Auto) 0.0 (0.0-0.1) K/mm3 Abs Immat Gran (auto) 0.05 H (0.00-0.031) K/mm3 Absolute Neuts (auto) 7.8 H (1.3-6.7) K/mm3 Absolute Nucleated RBC 0.000 (0.0-0.012) K/mm3 Nucleated RBC % 0.0 (0.0-0.2) % PT 12.3 (11.1-14.7) Seconds INR 0.9 APTT 26.4 (22.3-36.8) Seconds D-Dimer 0.54 H (<0.48) ug/mL Sodium 137 (137-145) mmol/L Potassium 3.8 (3.4-5.0) mmol/L Chloride 107 (98-107) mmol/L Carbon Dioxide 20 L (22-30) mmol/L Anion Gap 10 (4-12) mmol/L BUN 5 L D (7-17) mg/dL Creatinine 0.52 L (0.7-1.0) mg/dL Estim Creat Clear Calc 131 ml/min Estimated GFR > 60 (59 - ) Glucose 85 (65-110) mg/dL Calcium 9.1 (8.4-10.2) mg/dL Total Bilirubin 0.6 (0.2-1.3) mg/dL AST 21 (14-36) U/L ALT 17 (6-35) U/L Alkaline Phosphatase 70 (38-126) U/L Troponin I < 0.012 (0.000-0.034) ng/mL NT-Pro-B Natriuret Pep < 20 (19.9-100) pg/mL Total Protein 7.0 (6.3-8.2) g/dL Albumin 3.9 (3.5-5.1) g/dL <Bill Diaz MD - Last Filed: 12/09/24 07:02> Discharge Plan Discharge Clinical Impression: Shortness of breath, 26 weeks gestation of , Elevated d-dimer <Shila Lizarraga PA-C - Last Filed: 12/07/24 09:16> Patient Disposition: Still a Patient <Shila Lizarraga PA-C - Last Filed: 12/07/24 09:16> Condition: Stable <Shila Lizarraga PA-C - Last Filed: 12/07/24 09:16>
--- NOTE | 2024-12-06 14:06 | ECG_ITS ---
Test Date: 2024-12-06 20:00:27 Measurements Intervals [place] Rate: 57 P: 32 DC: 129 QRS: 39 QRSD: 90 T: 16 QT: 415 QTc: 406 Interpretive Statements SINUS BRADYCARDIA WITH OCCASIONAL SUPRAVENTRICULAR PREMATURE COMPLEXES Compared to ECG 04/01/2024 23:10:54 no significant change Electronically Signed On 12-07-2024 09:18:47 CDT by Justin Cordova M.D.
[2024-12-06 14:25] LABS: Basophils Percent Auto 0.3 % (0.2-1.2); Eosinophils Absolute Auto 0.1 K/mm3 (0-0.3); Hematocrit 34.1 % (37.0-47.0); Immature Granulocyte Absolute 0.05 K/mm3 (0.00-0.031); Immature Granulocyte Percent A 0.4 % (0-0.5); Lymphocytes Absolute Auto 2.43 K/mm3 (0.9-3.2); Lymphocytes Percent Auto 21.7 % (18.3-44.2); Mean Corpuscular HGB Conc 32.3 g/dl (32-36); Mean Corpuscular Hemoglobin 28.9 pg (26-34); Mean Corpuscular Volume 89.7 fl (80-100); Mean Platelet Volume 11.3 fl (7.4-10.4); Monocytes Absolute Auto 0.7 K/mm3 (0.1-0.6); Monocytes Percent Auto 6.5 % (2.6-8.5); Neutrophils Absolute Auto 7.8 K/mm3 (1.3-6.7); Neutrophils Percent Auto 70.1 % (45.5-73.1); Platelet Count Result 185 k/mm3 (150-375); Red Cell Distribution Width 13.1 % (11.5-14.5); White Blood Count 11.2 K/mm3 (4.5-10.0)
[2024-12-06 14:35] LABS: INR 0.9; Prothrombin Time 12.3 Seconds (11.1-14.7)
[2024-12-06 14:36] LABS: Partial Thromboplastin Time 26.4 Seconds (22.3-36.8)
[2024-12-06 14:40] LABS: Alanine Aminotransferase 17 U/L (6-35); Albumin Level 3.9 g/dL (3.5-5.1); Alkaline Phosphatase 70 U/L (38-126); Anion Gap 10 mmol/L (4-12); Aspartate Amino Transferase 21 U/L (14-36); Bilirubin,Total 0.6 mg/dL (0.2-1.3); Blood Urea Nitrogen 5 mg/dL (7-17); Calcium 9.1 mg/dL (8.4-10.2); Carbon Dioxide 20 mmol/L (22-30); Chloride 107 mmol/L (98-107); Estimated CRCL calculation 131 ml/min; Estimated Glomerular Filt Rate > 60; Glucose 85 mg/dL (65-110); Potassium 3.8 mmol/L (3.4-5.0); Sodium 137 mmol/L (137-145)
[2024-12-06 14:49] LABS: D Dimer 0.54 ug/mL (<0.48)
[2024-12-06 14:51] LABS: NT Pro B Type Natriuretic Pept < 20 pg/mL (19.9-100); Troponin I < 0.012 ng/mL (0.000-0.034)
--- OUTSIDE RECORDS SUMMARY | 2024-12-06 18:32 | XMS_ITS | Clinical Summary ---
Author Organization [facility] 8 [facility] Address [address] [place] [address] Care Team Providers Care Hospice Care Transitions Coordinator Name Role Phone Sly Rasheed MD Primary [...] Department Care Team Description 10/19/2024 12:51 PM CLOUD SUBJECT MATTER EXPERT - 10/19/2024 11:59 PM CLOUD SUBJECT MATTER EXPERT Hospital Encounter [address] [place] [address] Discharge Disposition: Discharge to home or self care 10/19/2024 10:30 AM CLOUD SUBJECT MATTER EXPERT Office Visit [facility]ology at [facility] [address] [place] [address] Cathy Delaney MD VERNON positive [...] on file Legal Sex Female 2:34 AM CLOUD SUBJECT MATTER EXPERT Gender Identity Female 10/01/2019 10:17 AM CLOUD SUBJECT MATTER EXPERT Sexual Orientation Straight 10/01/2019 10 :17 AM CLOUD SUBJECT MATTER EXPERT 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 on file Not on file Obstetrics History Last Filed Vital Signs Vital Sign Reading Time Taken Comments Blood Pressure 110/68 10/19/2024 10:33 AM CLOUD SUBJECT MATTER EXPERT Pulse 77 10/19/2024 10:33 AM CLOUD SUBJECT MATTER EXPERT Temperature 36.7 C (98 F) 05/29/2024 7:54 AM CDT Respiratory Rate 16 04/12/2024 2:32 PM CDT Oxygen Saturation 98% 10/19/2024 10:33 AM CLOUD SUBJECT MATTER EXPERT Inhaled Oxygen Concentration - - Weight 75.1 kg (165 lb 8 oz) 10/19/2024 10:33 AM CLOUD SUBJECT MATTER EXPERT Height 157.5 cm (5' 2.01 ) 10/19/2024 10:[address] Body Mass Index 30.26 10/19/2024 10:33 AM CLOUD SUBJECT MATTER EXPERT Plan of Treatment Health Maintenance Due Date [...] Diagnosis Comments EGFR Routine 10/19/2024 11:32 AM CLOUD SUBJECT MATTER EXPERT VERNON positive PROTEIN, URINE, RANDOM Routine 11:32 AM CLOUD SUBJECT MATTER EXPERT VERNON positive ANTI-DOUBLE STRANDED DNA ANTIBODIES Routine 10/19/2024 11:32 AM CLOUD SUBJECT MATTER EXPERT VERNON positive CBC WITHOUT DIFFERENTIAL Routine 10/19/2024 11:32 AM CLOUD SUBJECT MATTER EXPERT VERNON positive COMPREHENSIVE METABOLIC PANEL Routine 10/19/2024 11:32 AM CLOUD SUBJECT MATTER EXPERT VERNON positive C4 COMPLEMENT Routine 10/19/2024 11:32 AM CLOUD SUBJECT MATTER EXPERT VERNON positive C3 COMPLEMENT Routine 10/19/2024 11:32 AM CLOUD SUBJECT MATTER EXPERT VERNON positive CREATININE, URINE, RANDOM Routine 10/19/2024 11:32 AM CLOUD SUBJECT MATTER EXPERT VERNON positive URINALYSIS AND REFLEX TO MICROSCOPIC Routine 10/19/2024 11:32 AM CLOUD SUBJECT MATTER EXPERT VERNON positive from Last 3 Months Results * Anti-double stranded DNA abs (10/19/2024 11:32 AM CLOUD SUBJECT MATTER EXPERT) dsDNA Ab 1.0 <=4.0 IUnits/mL Comment: Interpretive Data Negative: < or = 4 IUnits/mL Indeterminate: 5 - 9 IUnits/mL Positive: > or = 10 IUnits/mL Current interpretive data was last revised on 2017. Testing performed by: [facility], [address] [place]., [address] Blood 10/19/2024 11:3 2 AM CLOUD SUBJECT MATTER EXPERT 10/19/2024 8:18 PM CLOUD SUBJECT MATTER EXPERT Cathy Delaney MD LAB BLOOD ORDERABLES Final Result [facility] [address] Department [place] [address] * eGFR (10/19/2024 11:32 AM CLOUD SUBJECT MATTER EXPERT) eGFR >90 >=60 mL/min/1. 73 m2 Comment: [...] reviewed 2021. Blood 10/19/2024 11:3 2 AM CLOUD SUBJECT MATTER EXPERT 10/19/2024 4:45 PM CLOUD SUBJECT MATTER EXPERT us Cathy Delaney MD LAB BLOOD ORDERABLES Final Result Performing Organization Address [facility] Co de Phone Number [facility] [address] [facility] [place] [address] * C4 complement (10/19/2024 11:32 AM CLOUD SUBJECT MATTER EXPERT) Complement C4 12 10 - 40 mg/dL Blood 10/19/2024 11:3 2 AM CLOUD SUBJECT MATTER EXPERT 10/19/2024 3:28 PM CLOUD SUBJECT MATTER EXPERT Cathy Delaney MD LAB BLOOD ORDERABLES Final Result Performing Organization Address [facility] de Phone Number [facility] [address] [facility] [place] [address] * Urinalysis reflex to microscopic (10/19/2024 11:32 AM CLOUD SUBJECT MATTER EXPERT) Color, ur Yellow Yellow Clarity, ur Clear Clear [facility] Specific gravity, ur 1.012 1.003 - 1.030 [facility] pH, urine 7.0 [facility] Comment: Interpretive Data U rine pH is affected by diet, medications, systemic acid-base disturbances, and renal tubular function. pH may affect urinary stone formation. For example, urine pH below 6.0 may help reduce the tendency for calcium phosphate stones and pH greater than 6.0 may reduce the tendency for uric acid stone formation. Source: [facility] Compliance Assurance Current Interpretive Data was last revised on 2017 Protein, ur ql Negative Negative [facility] Glucose, ur ql Negative Negative [facility] Ketones, ur Negative Negative [facility] Bilirubin, ur Negative Negative [facility] Blood, ur Negative Negative [facility] Urobilinogen, ur <2.0 <2.0 mg/dL [facility] Nitrite, ur Negative Negative [facility] Leukocyte esterase, ur Negative Negative [facility] UA reflex comment Reflex conditions for microscopic UA not met. [facility] Urine 10/19/2024 11:3 2 AM CLOUD SUBJECT MATTER EXPERT 10/19/2024 11:32 AM CLOUD SUBJECT MATTER EXPERT Cathy Delaney MD LAB URINE ORDERABLES Final Result Performing Organization Address [facility] de Phone Number [facility] [address] Department [place] [address] * Protein, urine, random (10/19/2024 11:32 AM CLOUD SUBJECT MATTER EXPERT) Protein, ur, quant 5.5 mg/dL Comment: Interpretive Data No reference range established. Current interpretive data was last revised 2019. Urine 10/19/2024 11:3 2 AM CLOUD SUBJECT MATTER EXPERT 10/19/2024 11:32 AM CLOUD SUBJECT MATTER EXPERT Cathy Delaney MD LAB URINE ORDERABLES Final Result Performing Organization Address [facility] de Phone Number [facility] [address] Department [place] [address] * Creatinine, urine, random (10/19/2024 11:32 AM CLOUD SUBJECT MATTER EXPERT) Creatinine Ur 64.4 mg/dL Comment: Interpretive Data No reference range established. Current interpretive data was last revised 2019. Urine 10/19/2024 11:3 2 AM CLOUD SUBJECT MATTER EXPERT 10/19/2024 11:32 AM CLOUD SUBJECT MATTER EXPERT Cathy Delaney MD LAB URINE ORDERABLES Final Result Performing Organization Address [facility] de Phone Number [facility] [address] Department [place] [address] * (ABNORMAL) CBC without differential (10/19/2024 11:32 AM CLOUD SUBJECT MATTER EXPERT) WBC 8.9 3.8 - 9.9 K/cumm Hgb 11.2(L) 11.9 - 15.5 g/dL [facility] Hct 34.5(L) 35.6 - 45.5 % [facility] Plt 193 150 - 400 K/cumm [facility] MPV 11.9 9.1 - 12.3 fL [facility] RBC 3.75(L) 3.90 - 5.20 M/cumm [facility] MCV 92.0 81.3 - 96.4 fL [facility] MCH 29.9 27.1 - 33.3 pg [facility] MCHC 32.5 32.3 - 35.7 g/dL [facility] RDW CV 14.5 11.1 - 14.9 % [facility] RDW SD 48.7(H) 35.7 - 48.1 fL [facility] NRBC abs 0.00 0.00 - 0.01 K/cumm [facility] Blood 10/19/2024 11:3 2 AM CLOUD SUBJECT MATTER EXPERT 10/19/2024 4:11 PM CLOUD SUBJECT MATTER EXPERT Cathy Delaney MD LAB BLOOD ORDERABLES Final Result Performing Organization Address [facility] Co de Phone Number [facility] [address] [facility] [place] [address] * C3 complement (10/19/2024 11:32 AM CLOUD SUBJECT MATTER EXPERT) Pathologist [facility] Complement C3 141 90 - 180 mg/dL Blood 10/19/2024 11:3 2 AM CLOUD SUBJECT MATTER EXPERT 10/19/2024 3:28 PM CLOUD SUBJECT MATTER EXPERT Cathy Delaney MD LAB BLOOD ORDERABLES Final Result Performing Organization Address City/[facility]/ZIP Co de Phone Number [facility] [address] Department [place] [address] * (ABNORMAL) Comprehensive metabolic panel (10/19/2024 11:32 AM CLOUD SUBJECT MATTER EXPERT) Sodium 137 135 - 145 mmol/L Potassium, pl 3.6 3.3 - 4.9 mmol/L [facility] Chloride 104 97 - 110 mmol/L [facility] CO2 21(L) 22 - 32 mmol/L [facility] Anion gap 12 2 - 15 mmol/L [facility] BUN 7 6 - 25 mg/dL [facility] Creatinine 0.61 0.60 - 1.10 mg/dL [facility] Glucose 84 70 - 199 mg/dL [facility] Comment: Interpretive Data Fasting glucose >/= 126 [...] 2022. Calcium 9.2 8.5 - 10.3 mg/dL [facility] Bilirubin, total 0.4 0.1 - 1.2 mg/dL [facility] Protein, pl 6.4(L) 6.5 - 8.5 g/dL [facility] Albumin 3.5 3.5 - 5.0 g/dL [facility] Alk phos 51 40 - 130 Units/L [facility] ALT 21 7 - 45 Units/L [facility] AST 23 10 - 45 Units/L [facility] Blood 10/19/2024 11:3 2 AM CLOUD SUBJECT MATTER EXPERT 10/19/2024 4:45 PM CLOUD SUBJECT MATTER EXPERT us Cathy Delaney MD LAB BLOOD ORDERABLES Final Result [facility] [address] Department of [place] [address] from Last 3 Months Insurance [facility] [employer] [employer] [facility] [facility] [employer]PPO Address: [address] [address] [place] [address] [facility] [facility] [employer]PPO Address: [address] [address] [place] [address] Care Teams Hospice Care Transitions Coordinator Relationship Specialty Start Date End Date Sly Rasheed MD [address] [place] [address] [place] [address] PCP - General Family Practice 04/06/24
--- OUTSIDE RECORDS SUMMARY | 2024-12-06 18:32 | XMS_ITS | Clinical Summary ---
Author Organization [facility] [employer] Address [address] [place] [address] Care Team Providers Care Cyber Defense Incident Responder Name Role Phone Beata Orta MD Primary Care Provider [phone] Source Comments [facility] [employer],non-[facility] Affiliates and Associated Physician Practices is amultiple site organization consisting of ambulatory clinics and hospital sitesin [place], [place], [place] and [place]. This disclosure is being madepursuant to the Care Everywhere program and may not contain all information available regarding this patient. Last updated 18.[facility] [employer] Allergies No known active allergies Social History [...] age to complete this topic Care Teams Cyber Defense Incident Responder Relationship Specialty Start Date End Date Beata Orta MD [address] [place] [address] PCP - General Family Medicine 07/02/21
--- OUTSIDE RECORDS SUMMARY | 2024-12-06 18:32 | XMS_ITS | Encounter Summary ---
Author Organization [facility] Address [address] [place] [address] Care Team Providers Care School Athletic Director Name Role Phone Erica Laura MD Primary Care Provider Unavailable Sly Rasheed MD Primary Care Provider Encounter Details Date Type Department Care Team (Late st Contact Info) Description 07/24/2017 Abstract [place] [address] Erica Laura MD Social History Tobacco Use [...] on filedocumented in this encounter Care Teams School Athletic Director Relationship Specialty Start Date End Date Erica Laura MD PCP - General 05/30/14 Sly Rasheed MD [address] [place] [address] PCP - General FAMILY PRACTICE 04/03/24 documented as of this encounter
--- OUTSIDE RECORDS SUMMARY | 2024-12-06 18:32 | XMS_ITS | Encounter Summary ---
Author Organization [facility] Address [address] [place] [address] Care Team Providers Care Idea Man Name Role Phone Beata Orta MD Primary Care Provider [phone] Encounter Details Date Type Department Care Team (Late st Contact Info) Description 08/19/2021 Lab Requisition [facility] [address] [place] [address] Jeanne Roque MD Social History Tobacco Use [...] BETA BLOOD QUANTITATIVE STAT 08/19/2021 10:46 AM PATENT SOLICITOR documented in this encounter Results * HCG BETA BLOOD QUANTITATIVE (08/19/2021 10:46 AM PATENT SOLICITOR) hCG Quantitative <1.20 mIU/mL 08/19/20 11:25 AM PATENT SOLICITOR [facility] Blood BLOOD SPECIMEN / Unknown Venipuncture / Unknown 08/19/2021 10:46 AM PATENT SOLICITOR 08/19/2021 10:46 AM PATENT SOLICITOR Narrative [facility] - 08/19/2021 11:25 AM PATENT SOLICITOR hCG Reference Range, mIU/mL: Males 0-2.0 Non [...] Roque MD LAB - CHEMISTRY [facility] Organization Address City/State/ZIP Co de Phone Number [facility] [address] [place] [id number] documented in this encounter Visit Diagnoses Not on filedocumented in this encounter Care Teams Idea Man Relationship Specialty Start Date End Date Beata Orta MD [address] [place] [address] PCP - General Family Medicine 07/02/21 documented as of this encounter
--- OUTSIDE RECORDS SUMMARY | 2024-12-06 18:32 | XMS_ITS | Clinical Summary ---
Author Organization [facility] Address [address] [place] [address] Care Team Providers Care Crushing Mill Operator Name Role Phone Sly Rasheed MD Primary [...] VE NON-REACTI VE 04/03/2024 8:17 PM CDT [facility] HEP B CORE IGM NON-REACTI VE NON-REACTI VE 04/03/2024 11:53 PM CDT [facility] HAV IGM NON-REACTI VE NON-REACTI VE 04/03/2024 11:53 PM CDT [facility] HEPATITIS C AB NON-REACTI VE NON-REACTI VE 04/03/2024 11:53 PM CDT [facility] 04/03/2024 6:54 PM CDT Rachana Diaz MD LABORATORY Final Resul t [facility] [address] [place] [address], from Last 3 Months or Most Recently Relevant to Health Maintenance Insurance [facility] Care Teams Crushing Mill Operator Relationship Specialty Start Date End Date Sly Rasheed MD [address] [place] [address] PCP - General FAMILY PRACTICE 04/03/24
--- OUTSIDE RECORDS SUMMARY | 2024-12-06 18:32 | XMS_ITS | Referral Summary ---
Author Organization [address] Address [address] [place] [id number] Care Team Providers Care Geographic Information Systems Engineer Name Role Phone Sly Rasheed MD Primary Care Provider Encounters Date Type Department Care Team Description 10/19/2024 12:51 PM SPOOLING MACHINE OPERATOR - 10/19/2024 11:59 PM SPOOLING MACHINE OPERATOR Hospital Encounter [id number] [place] [address] Discharge Disposition: Discharge to home or self care 10/19/2024 10:30 AM SPOOLING MACHINE OPERATOR Office Visit [facility] Rheumatology at [id number] [facility] [address] [place] [address] Cathy Delaney MD VERNON positive [...] on file Legal Sex Female 2:34 AM SPOOLING MACHINE OPERATOR Gender Identity Female 10/01/2019 10:17 AM SPOOLING MACHINE OPERATOR Sexual Orientation Straight 10/01/2019 10 :17 AM SPOOLING MACHINE OPERATOR 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 on file Not on file Last Filed Vital Signs Vital Sign Reading Time Taken Comments Blood Pressure 110/68 10/19/2024 10:33 AM SPOOLING MACHINE OPERATOR Pulse 77 10/19/2024 10:33 AM SPOOLING MACHINE OPERATOR Temperature 36.7 C (98 F) 05/29/2024 7:54 AM CDT Respiratory Rate 16 04/12/2024 2:32 PM CDT Oxygen Saturation 98% 10/19/2024 10:33 AM SPOOLING MACHINE OPERATOR Inhaled Oxygen Concentration - - Weight 75.1 kg (165 lb 8 oz) 10/19/2024 10:33 AM SPOOLING MACHINE OPERATOR Height 157.5 cm (5' 2.01 ) 10/19/2024 10:[address] Body Mass Index 30.26 10/19/2024 10:33 AM SPOOLING MACHINE OPERATOR Plan of Treatment Not on file Procedures Procedure Name Priority Date/Time Associated Diagnosis Comments EGFR Routine 10/19/2024 11:32 AM SPOOLING MACHINE OPERATOR VERNON positive PROTEIN, URINE, RANDOM Routine 11:32 AM SPOOLING MACHINE OPERATOR VERNON positive ANTI-DOUBLE STRANDED DNA ANTIBODIES Routine 10/19/2024 11:32 AM SPOOLING MACHINE OPERATOR VERNON positive CBC WITHOUT DIFFERENTIAL Routine 10/19/2024 11:32 AM SPOOLING MACHINE OPERATOR VERNON positive COMPREHENSIVE METABOLIC PANEL Routine 10/19/2024 11:32 AM SPOOLING MACHINE OPERATOR VERNON positive C4 COMPLEMENT Routine 10/19/2024 11:32 AM SPOOLING MACHINE OPERATOR VERNON positive C3 COMPLEMENT Routine 10/19/2024 11:32 AM SPOOLING MACHINE OPERATOR VERNON positive CREATININE, URINE, RANDOM Routine 10/19/2024 11:32 AM SPOOLING MACHINE OPERATOR VERNON positive URINALYSIS AND REFLEX TO MICROSCOPIC Routine 10/19/2024 11:32 AM SPOOLING MACHINE OPERATOR VERNON positive from Last 3 Months Results * Anti-double stranded DNA abs (10/19/2024 11:32 AM SPOOLING MACHINE OPERATOR) dsDNA Ab 1.0 <=4.0 IUnits/mL Comment: Interpretive Data Negative: < or = 4 IUnits/mL Indeterminate: 5 - 9 IUnits/mL Positive: > or = 10 IUnits/mL Current interpretive data was last revised on 2017. Testing performed by: [facility], [address] [facility], [place]., [address] Blood 10/19/2024 11:3 2 AM SPOOLING MACHINE OPERATOR 10/19/2024 8:18 PM SPOOLING MACHINE OPERATOR Cathy Delaney MD LAB BLOOD ORDERABLES Final Result Performing Organization Address [facility] Co de Phone Number [facility] [address] [facility] [place] [address] * eGFR (10/19/2024 11:32 AM SPOOLING MACHINE OPERATOR) eGFR >90 >=60 mL/min/1. 73 m2 Comment: [...] reviewed 2021. Blood 10/19/2024 11:3 2 AM SPOOLING MACHINE OPERATOR 10/19/2024 4:45 PM SPOOLING MACHINE OPERATOR Cathy Delaney MD LAB BLOOD ORDERABLES Final Result Performing Organization Address [facility] Co de Phone Number [facility] [address] [place] [address] * C4 complement (10/19/2024 11:32 AM SPOOLING MACHINE OPERATOR) Complement C4 12 10 - 40 mg/dL Blood 10/19/2024 11:3 2 AM SPOOLING MACHINE OPERATOR 10/19/2024 3:28 PM SPOOLING MACHINE OPERATOR Cathy Delaney MD LAB BLOOD ORDERABLES Final Result Performing Organization Address [facility] Co de Phone Number [facility] [address] [facility] [place] [address] * Urinalysis reflex to microscopic (10/19/2024 11:32 AM SPOOLING MACHINE OPERATOR) Color, ur Yellow Yellow Clarity, ur Clear Clear [facility] Specific gravity, ur 1.012 1.003 - 1.030 [facility] pH, urine 7.0 [facility] Comment: Interpretive Data U rine pH is affected by diet, medications, systemic acid-base disturbances, and renal tubular function. pH may affect urinary stone formation. For example, urine pH below 6.0 may help reduce the tendency for calcium phosphate stones and pH greater than 6.0 may reduce the tendency for uric acid stone formation. Source: [facility] Current Interpretive Data was last revised on 2017 Protein, ur ql Negative Negative [facility] Glucose, ur ql Negative Negative [facility] Ketones, ur Negative Negative [facility] Bilirubin, ur Negative Negative [facility] Blood, ur Negative Negative [facility] Urobilinogen, ur <2.0 <2.0 mg/dL [facility] Nitrite, ur Negative Negative [facility] Leukocyte esterase, ur Negative Negative [facility] UA reflex comment Reflex conditions for microscopic UA not met. [facility] Urine 10/19/2024 11:3 2 AM SPOOLING MACHINE OPERATOR 10/19/2024 11:32 AM SPOOLING MACHINE OPERATOR Cathy Delaney MD LAB URINE ORDERABLES Final Result Performing Organization Address [facility]/ZIP Co de Phone Number [facility] [address] [place] [address] * Protein, urine, random (10/19/2024 11:32 AM SPOOLING MACHINE OPERATOR) Protein, ur, quant 5.5 mg/dL Comment: Interpretive Data No reference range established. Current interpretive data was last revised 2019. Urine 10/19/2024 11:3 2 AM SPOOLING MACHINE OPERATOR 10/19/2024 11:32 AM SPOOLING MACHINE OPERATOR Cathy Delaney MD LAB URINE ORDERABLES Final Result Performing Organization Address [facility] de Phone Number [facility] [address] [facility] [place] [address] * Creatinine, urine, random (10/19/2024 11:32 AM SPOOLING MACHINE OPERATOR) Pathologist [facility] Creatinine Ur 64.4 mg/dL Comment: Interpretive Data No reference range established. Current interpretive data was last revised 2019. Urine 10/19/2024 11:3 2 AM SPOOLING MACHINE OPERATOR 10/19/2024 11:32 AM SPOOLING MACHINE OPERATOR Cathy Delaney MD LAB URINE ORDERABLES Final Result Performing Organization Address [facility] de Phone Number [facility] [address] [place] [address] * (ABNORMAL) CBC without differential (10/19/2024 11:32 AM SPOOLING MACHINE OPERATOR) [facility] WBC 8.9 3.8 - 9.9 K/cumm Hgb 11.2(L) 11.9 - 15.5 g/dL [facility] Hct 34.5(L) 35.6 - 45.5 % [facility] Plt 193 150 - 400 K/cumm [facility] MPV 11.9 9.1 - 12.3 fL [facility] RBC 3.75(L) 3.90 - 5.20 M/cumm [facility] MCV 92.0 81.3 - 96.4 fL [facility] MCH 29.9 27.1 - 33.3 pg [facility] MCHC 32.5 32.3 - 35.7 g/dL [facility] RDW CV 14.5 11.1 - 14.9 % [facility] RDW SD 48.7(H) 35.7 - 48.1 fL [facility] NRBC abs 0.00 0.00 - 0.01 K/cumm [facility] Blood 10/19/2024 11:3 2 AM SPOOLING MACHINE OPERATOR 10/19/2024 4:11 PM SPOOLING MACHINE OPERATOR Cathy Delaney MD LAB BLOOD ORDERABLES Final Result Performing Organization Address [facility]/ZIP Co de Phone Number [facility] [address] [place] [address] * C3 complement (10/19/2024 11:32 AM SPOOLING MACHINE OPERATOR) [facility] Complement C3 141 90 - 180 mg/dL Blood 10/19/2024 11:3 2 AM SPOOLING MACHINE OPERATOR 10/19/2024 3:28 PM SPOOLING MACHINE OPERATOR Cathy Delaney MD LAB BLOOD ORDERABLES Final Result Performing Organization Address [facility] de Phone Number [facility] [address] [place] [address] * (ABNORMAL) Comprehensive metabolic panel (10/19/2024 11:32 AM SPOOLING MACHINE OPERATOR) [facility] Sodium 137 135 - 145 mmol/L Potassium, pl 3.6 3.3 - 4.9 mmol/L [facility] Chloride 104 97 - 110 mmol/L [facility] CO2 21(L) 22 - 32 mmol/L [facility] Anion gap 12 2 - 15 mmol/L [facility] BUN 7 6 - 25 mg/dL [facility] Creatinine 0.61 0.60 - 1.10 mg/dL [facility] Glucose 84 70 - 199 mg/dL [facility] Comment: Interpretive Data Fasting glucose [...] 2022. Calcium 9.2 8.5 - 10.3 mg/dL [facility] Bilirubin, total 0.4 0.1 - 1.2 mg/dL [facility] Protein, pl 6.4(L) 6.5 - 8.5 g/dL [facility] Albumin 3.5 3.5 - 5.0 g/dL [facility] Alk phos 51 40 - 130 Units/L [facility] ALT 21 7 - 45 Units/L [facility] AST 23 10 - 45 Units/L [facility] Blood 10/19/2024 11:3 2 AM SPOOLING MACHINE OPERATOR 10/19/2024 4:45 PM SPOOLING MACHINE OPERATOR us Cathy Delaney MD LAB BLOOD ORDERABLES Final Result [facility] [address] [place] [address] from Last 3 Months Insurance [facility] CHOICE PLUS Member Subscriber Plan / Payer (Ef fective 2023-Present) Name:Natalia Weiss Nicolas Relation to Subscriber:Self Name:Natalia Weiss Payer ID:[id number] (NAIC) Type:[facility] HMO/PPO Address: [id number] [facility] CHOICE PLUS Care Teams Geographic Information Systems Engineer Relationship Specialty Start Date End Date Sly Rasheed MD [address] [place] [address] PCP - General Family Practice 04/06/24
--- NOTE | 2024-12-06 19:31 | PC.NURSE ---
Assumed care of patient after receiving report from ELIDIA Wolf. @ [phone]
--- NOTE | 2024-12-06 20:45 | PC.NURSE ---
PT arrives to unit from the ED with shortness of breath.
--- NOTE | 2024-12-06 21:15 | PC.NURSE ---
Dr. Juan C Cespedes called, update on pt, vital signs, tracing, and scheduled MRI tomorrow morning. Orders received for NST every shift, vitals every four hours while awake, every eight hours while sleeping, and administer tylenol 1000 mg every six hours as needed.
[2024-12-06] MEDS: ACETAMINOPHEN 500 MG TABLET 1000 MG PO (21:29)
--- NOTE | 2024-12-06 21:32 | OBADM ---
This patient, Natalia Weiss, admitted to the OB room OB Post 113 for observation. Patient/family oriented to hospital policies and general routines including ID bracelet, bed and alarms, visiting hours, pain management, procedures, bathroom and other care routines, personal items, smoking policy, room service/diet, and visiting hours. Patient/Family are encouraged to report perceived risks to care and to ask questions if they do not understand what they are told or what they should do.
[2024-12-07] VITALS (14 sets, daily range): BP systolic 98–112; BP diastolic 49–56; PULSE 67–92; RESP 16; TEMP 36.8–37.2; O2SAT 98–100
--- NOTE | 2024-12-07 07:30 | PC.NURSE ---
Dr. Juan C Cespedes on unit this am and discussed CT of chest showing enlarged heart. MD states he has looked at the CT scan and doesn't feel she has an enlarged heart. MD informed pt c/o shortness of breath at rest, but in no apparent distress. BS clear bilaterally, O2 sat 100 %, Resp 16 and regular. MD in to see and talk to pt.
--- NOTE | 2024-12-07 07:38 | P.HP_ITS ---
H&P: HPI History of Present Illness Date/Time: 12/07/24 07:38 Chief Complaint: Shortness of breath Narrative: 29-year-old 2 para 1 at 26 weeks gestation complaining of shortness of breath. Significantly her sister has a history of a DVT so she was seen through the ER. She underwent a CT scan which was an adequate the bladder chest x-ray was normal and her saturations were 99-100% whereas they were in the low 90s at the nurse's station at school. She had a positive D-dimer and ER was concerned. Review of Systems Review of Systems: CONSTITUTIONAL: Denies malaise, chills, sweats, or fever. EYES: Denies visual changes, redness, or discharge. ENT: Reports some rhinorrhea, congestion,no sinus pain,no otalgia and positive for sore throat. CARDIOVASCULAR: Denies chest pain, palpitations, or edema. RESPIRATORY: Reports no cough.? Denies dyspnea. GASTROINTESTINAL: Denies abdominal pain, nausea, vomiting, diarrhea SKIN: Denies rash or itching. MUSCULOSKELETAL: reports some myalgia for one week NEUROLOGIC: Denies headache. All systems reviewed & are unremarkable except as noted in HPI and below PMFSH Past Medical History Medical History Anxiety Migraine headache without aura Overweight (BMI 25.0-29.9) Eczema Depression Surgical History Surgical History Previous section History of tonsillectomy 08/10/23 Family History Family History Grandparent Depression Sibling Pulmonary embolism Father Obesity Other Diabetes mellitus Family history of arthritis Family history of heart disease in male family member before age 55 Hypertension Social History Social History Social History: Lives at home with her significant other and children. Surrogate decision maker: Chauncey Clayton, boyfriend. Code Status: Full Code. Smoking status: Never smoker Second hand tobacco smoke exposure: Yes Alcohol intake: never Alcohol use details: VERY RARE Substance use: never Substance use type: does not use Lack of Transportation: No Lack of Food: Never True Current Housing: I Have Housing Concerned About Future Housing: No Difficulty Paying Gas/Electric Bills: No Difficulty Paying for Meds: No Currently Unemployed: No Education: Master's Degree or Higher Difficulty w/ Childcare or Family Care: No Living arrangements: with family Occupation/Education: occupation Additional occupation/education comments: Teacher @ [employer] Gender identity (if verbalized by the patient): Female Spiritual care concerns: No Meds Home Medications and Allergies Home Medications ?Medication ?Instructions ?Recorded ?Confirmed ?Type hydrocortisone 2.5 % topical cream 1 applic RECTAL BID PRN 03/22/24 06/09/24 Rx with perineal applicator hemorrhoids #30 grams ondansetron HCl 4 mg tablet 4 mg PO Q6-8H PRN nausea and 04/05/24 06/09/24 Rx vomiting #30 tabs sumatriptan succinate 100 mg tablet See Rx Instructions PO .COMPLEX #9 04/05/24 06/09/24 Rx tabs alprazolam 0.25 mg tablet (Xanax) 0.25 mg PO DAILY PRN anxiety #20 05/23/24 06/09/24 Rx tabs Allergies Allergy/AdvReac Type Severity Reaction Status Date / Time No Known Allergies Allergy Verified 12/06/24 21:22 Vital Signs Vital Signs - 24 hr 12/06/24 12:23 12/06/24 15:05 12/06/24 19:27 Temperature 97.6 F 97.3 F L Pulse Rate 87 81 Respiratory Rate 16 Blood Pressure 137/62 128/79 Pulse Oximetry 100 100 100 Oxygen Delivery Room Air 12/06/24 19:27 12/06/24 20:54 12/06/24 20:59 Temperature Pulse Rate 86 Respiratory Rate 18 Blood Pressure 116/75 Pulse Oximetry 100 100 100 Oxygen Delivery 12/06/24 21:01 12/06/24 21:04 12/06/24 21:09 Temperature Pulse Rate 66 Respiratory Rate Blood Pressure 124/65 Pulse Oximetry 100 100 Oxygen Delivery 12/06/24 21:14 12/06/24 21:15 12/06/24 21:19 Temperature Pulse Rate 75 Respiratory Rate Blood Pressure 114/58 L Pulse Oximetry 98 100 Oxygen Delivery 12/06/24 21:24 12/06/24 21:29 12/06/24 21:30 Temperature Pulse Rate Respiratory Rate Blood Pressure Pulse Oximetry 98 100 100 Oxygen Delivery 12/06/24 21:33 12/06/24 21:35 12/06/24 21:40 Temperature 98.7 F Pulse Rate Respiratory Rate Blood Pressure Pulse Oximetry 100 100 Oxygen Delivery Room Air 12/07/24 05:38 12/07/24 05:39 12/07/24 05:40 Temperature Pulse Rate 67 78 Respiratory Rate Blood Pressure 103/56 L 112/51 L Pulse Oximetry 98 Oxygen Delivery 12/07/24 05:41 12/07/24 06:57 12/07/24 06:58 Temperature 98.9 F Pulse Rate 72 Respiratory Rate 16 Blood Pressure 103/56 L Pulse Oximetry 98 100 100 Oxygen Delivery 12/07/24 07:03 12/07/24 07:03 12/07/24 07:08 Temperature 98.2 F Pulse Rate 71 Respiratory Rate 16 Blood Pressure 98/49 L Pulse Oximetry 100 100 100 Oxygen Delivery 12/07/24 07:13 12/07/24 07:18 12/07/24 07:23 Temperature Pulse Rate Respiratory Rate Blood Pressure Pulse Oximetry 100 100 100 Oxygen Delivery 12/07/24 07:28 12/07/24 07:33 Temperature Pulse Rate Respiratory Rate Blood Pressure Pulse Oximetry 100 100 Oxygen Delivery Exam Const: General: cooperative, healthy appearing and comfortable Nutritional Appearance: average body habitus HENMT: Head: normal to inspection Chest: Chest palpation & inspection: normal inspection of the chest Resp: Effort & Inspection: normal respiratory effort Cardio: Rate: regular rate Rhythm: regular rhythm Heart sounds: S1 normal heart sound present and S2 normal heart sound present GI: Inspection: normal to inspection (Soft gravid uterus) H&P: Results Labs Labs: Short CBC 12/06/24 Range/Units 14:19 WBC 11.2 H (4.5-10.0) K/mm3 Hgb 11.0 L (12.0-15.0) g/dL Hct 34.1 L (37.0-47.0) % Plt Count 185 (150-375) k/mm3 BMP 12/06/24 14:19 Sodium 137 Potassium 3.8 Chloride 107 Carbon Dioxide 20 L BUN 5 L D Creatinine 0.52 L Glucose 85 Calcium 9.1 Cardiac Enzymes 12/06/24 Range/Units 14:19 Troponin I < 0.012 (0.000-0.034) ng/mL Liver Function 12/06/24 Range/Units 14:19 Total Bilirubin 0.6 (0.2-1.3) mg/dL AST 21 (14-36) U/L ALT 17 (6-35) U/L Alkaline Phosphatase 70 (38-126) U/L Albumin 3.9 (3.5-5.1) g/dL Assessment and Plan Assessment and plan (1) Shortness of breath: Code(s): R06.02 - Shortness of breath Status: Acute Plan Will send patient home he has all findings do not point to pulmonary embolism
--- NOTE | 2024-12-07 07:45 | PM.DS ---
DS: Admitting Diagnosis Discharge Date 12/07/2024 Admitting Diagnosis Shortness of breath DS: Discharge Diagnosis Discharge Diagnosis (1) Shortness of breath: Code(s): R06.02 - Shortness of breath Status: Acute DS: Summary Hospital Course Reason for hospitalization: Patient was seen through the ER with shortness of breath and mild chest pain she had a positive D-dimer and had a CT which was inadequate due to timing. She did however remain with saturations in the 100s and normal chest x-ray. Her CT of the chest was read as an enlarged heart but she is athletic and appeared within normal limits to me. She was offered 2nd CT however in light of her normal symptoms being related we opted not to do that. Hospital Course: Please see above Time Spent with Patient Time attestation: Total time spent providing and/or coordinating discharge services: Exam Const: General: cooperative, healthy appearing and comfortable Nutritional Appearance: average body habitus Orientation/consciousness: oriented to person, oriented to place and oriented to time Resp: Effort & Inspection: normal respiratory effort Cardio: Rate: regular rate Rhythm: regular rhythm Heart sounds: S1 normal heart sound present and S2 normal heart sound present GI: Inspection: normal to inspection DS: Data Data Completed and Pending Labs on day of discharge: Labs from last 24 hours 12/06/24 14:19 WBC 11.2 H RBC 3.80 L Hgb 11.0 L Hct 34.1 L MCV 89.7 MCH 28.9 MCHC 32.3 RDW 13.1 Plt Count 185 MPV 11.3 H Immature Gran % (Auto) 0.4 Neut % (Auto) 70.1 Lymph % (Auto) 21.7 Kaufman % (Auto) 6.5 Eos % (Auto) 1.0 Baso % (Auto) 0.3 Lymph # (Auto) 2.43 Kaufman # (Auto) 0.7 H Eos # (Auto) 0.1 Baso # (Auto) 0.0 Abs Immat Gran (auto) 0.05 H Absolute Neuts (auto) 7.8 H Absolute Nucleated RBC 0.000 Nucleated RBC % 0.0 PT 12.3 INR 0.9 APTT 26.4 D-Dimer 0.54 H Sodium 137 Potassium 3.8 Chloride 107 Carbon Dioxide 20 L Anion Gap 10 BUN 5 L D Creatinine 0.52 L Estim Creat Clear Calc 131 Estimated GFR > 60 Glucose 85 Calcium 9.1 Total Bilirubin 0.6 AST 21 ALT 17 Alkaline Phosphatase 70 Troponin I < 0.012 NT-Pro-B Natriuret Pep < 20 Total Protein 7.0 Albumin 3.9 Discharge Plan Discharge Attending physician on discharge: Kavin Deluca Discharging Clinician: Kavin Deluca Patient Disposition: Home, Self-Care Activity: unlimited Diet: heart healthy Wound Care Instructions: follow printed instructions Patient Instructions: Antibiotic Form Patient Language: Faroese Stand Alone Forms: General Discharge Information Follow-up/Referrals: Kavin Deluca MD [Physician] - Discharge Medications: Continued sumatriptan succinate 100 mg tablet See Rx Instructions PO .COMPLEX Qty: 9 0RF Rx Instructions: take 1 tab at onset of headache; if no relief, may repeat 1 tab after at least 2 hrs; max = 2 tabs/24 hrs PO ondansetron HCl 4 mg tablet 4 mg PO Q6-8H PRN (Reason: nausea and vomiting) Qty: 30 3RF hydrocortisone 2.5 % cream with perineal applicator 1 applic RECTAL BID PRN (Reason: hemorrhoids) Qty: 30 0RF alprazolam [Xanax] 0.25 mg tablet 0.25 mg PO DAILY PRN (Reason: anxiety) Qty: 20 0RF Date of admission: 12/06/24 20:02 Primary Care Provider: UNKNOWN,DOCTOR Admitting Provider: Kavin Deluca Attending physician on admission: Kavin Deluca Condition: Stable
--- OUTSIDE RECORDS SUMMARY | 2024-12-08 07:40 | XMS_ITS | Continuity of Care Document ---
Author Organization [facility] Address [address] [place] [address] Phone Care Team Providers Care Faceter Name Role Phone Jacobo Roberson MD Unavailable [...] OFFICE/OUTPAT IENT VISIT EST [facility] , [address] [facility] [address], [place], [address], [place] [phone] [facility] Pain, joint, knee, right 6 Karol Centeno. [address], [place], [place], [address] . tel: [phone] OFFICE/OUTPAT IENT VISIT EST [facility] , [address], [place], [address], [place] [phone] [facility] TFCC (triangular fibrocartilage complex) tear May-2 9-201 5 Kutnik Aly. [address], [place], [place], [address] . tel: [phone] OFFICE/OUTPAT IENT VISIT EST [facility] , [address], [place], [address], [place] tel:[phone] [facility] TFCC (triangular fibrocartilage complex) tear Apr-2 2-201 5 Robertotvera Cervanteswn. [address], [place], [place], [address] . tel: [phone] OFFICE/OUTPAT IENT VISIT EST [facility] , [address] [facility] [address], [place], [address], [place] tel: [phone] [facility] Wrist pain, left Apr- 5-201 5 Kutnik Aly. [address], [place], [place], [address] . tel: [phone] [facility] , [address], [place], [address], [place] tel:[phone] [facility] No Information Nov-2 6-201 5 Sanya Berumenn. [address], [place], [place], [address] . tel: [phone] OFFICE/OUTPAT IENT VISIT EST [facility] , [address], [place], [address], [place] tel:[phone] [facility] Wrist contusion Nov-1 8-201 5 Kutnik Aly. [address], [place], [place], [address] . tel: [phone] OFFICE/OUTPAT IENT VISIT NEW [facility] , [address], [place], [address], [place] tel:[phone] [facility] Wrist contusion Feb-2 0-201 5 Kutvera Cervanteswn. [address], [place], [place], [address] . tel: [phone] Referring Provider: Vance Broussard, [address], [place], [address] . tel:[phone] Family History Family Member Type Diagnosis Age At Onset Father Problem (finding) Alive and well Mother Problem (finding) Alive and well Payers Payer name Insurance type Covered green party ID Torrey kwok(s) Blue Access PPO E2 [id number] Social History Type Description Quantity Date Captured [...]
--- OUTSIDE RECORDS SUMMARY | 2024-12-08 07:40 | XMS_ITS | Encounter Summary ---
Author Organization [facility] Address [address] [facility] [place] [address] Care Team Providers Care Lottery Sales Clerk Name Role Phone Beata Orta MD Primary Care Provider [phone] Encounter Details Date Type Department Care Team (Late st Contact Info) Description 08/19/2021 Lab Requisition [facility] [address] [place] [address] Jeanne Roque MD Social History Tobacco Use [...] BETA BLOOD QUANTITATIVE STAT 08/19/2021 10:46 AM ELECTRICIAN DECK documented in this encounter Results * HCG BETA BLOOD QUANTITATIVE (08/19/2021 10:46 AM ELECTRICIAN DECK) hCG Quantitative <1.20 mIU/mL 08/19/20 11:25 AM ELECTRICIAN DECK [facility] Blood BLOOD SPECIMEN / Unknown Venipuncture / Unknown 08/19/2021 10:46 AM ELECTRICIAN DECK 08/19/2021 10:46 AM ELECTRICIAN DECK Narrative [facility] - 08/19/2021 11:25 AM ELECTRICIAN DECK hCG Reference Range, mIU/mL: Males 0-2.0 Non [...] Roque MD LAB - CHEMISTRY [place] Organization Address City/State/ZIP Co de Phone Number [facility] [address] [place] [place] [phone] documented in this encounter Visit Diagnoses Not on filedocumented in this encounter Care Teams Lottery Sales Clerk Relationship Specialty Start Date End Date Beata Orta MD [address] [place] [address] PCP - General Family Medicine 07/02/21 documented as of this encounter
--- OUTSIDE RECORDS SUMMARY | 2024-12-08 07:40 | XMS_ITS | Encounter Summary ---
Author Organization [facility] Address [address] [place] [address] Care Team Providers Care Flour Broker Name Role Phone Erica Laura MD Primary Care Provider Unavailable Sly Rasheed MD Primary Care Provider Encounter Details Date Type Department Care Team (Late st Contact Info) Description 07/24/2017 Abstract [place] [address] Erica Laura MD Social History Tobacco Use [...] on filedocumented in this encounter Care Teams Flour Broker Relationship Specialty Start Date End Date Erica Laura MD PCP - General 05/30/14 Sly Rasheed MD [address] [place] [address] PCP - General FAMILY PRACTICE 04/03/24 documented as of this encounter
--- OUTSIDE RECORDS SUMMARY | 2024-12-08 07:40 | XMS_ITS | Clinical Summary ---
Author Organization [facility] Address [address] [facility] [place] [address] Care Team Providers Care Play Reader Name Role Phone Beata Orta MD Primary Care Provider [phone] Source Comments [facility],non-[facility] Affiliates and Associated Physician Practices is amultiple site organization consisting of ambulatory clinics and hospital sitesin [place], [place], [place] and [place]. This disclosure is being madepursuant to the Care Everywhere program and may not contain all information available regarding this patient. Last updated 18.[facility] Allergies No known active allergies Social History [...] age to complete this topic Care Teams Play Reader Relationship Specialty Start Date End Date Beata Orta MD [address] [place] [address] PCP - General Family Medicine 07/02/21
--- OUTSIDE RECORDS SUMMARY | 2024-12-08 07:41 | XMS_ITS | Clinical Summary ---
Author Organization [facility] Address [address] [place] [address] Care Team Providers Care Biodiesel Process Control Technician Name Role Phone Sly Rasheed MD Primary [...] VE NON-REACTI VE 04/03/2024 8:17 PM CDT [facility] HEP B CORE IGM NON-REACTI VE NON-REACTI VE 04/03/2024 11:53 PM CDT [facility] HAV IGM NON-REACTI VE NON-REACTI VE 04/03/2024 11:53 PM CDT [facility] HEPATITIS C AB NON-REACTI VE NON-REACTI VE 04/03/2024 11:53 PM CDT [facility] 04/03/2024 6:54 PM CDT Rachana Diaz MD LABORATORY Final Resul t [facility] [address] [place] [address], from Last 3 Months or Most Recently Relevant to Health Maintenance Insurance [facility] Care Teams Biodiesel Process Control Technician Relationship Specialty Start Date End Date Sly Rasheed MD [address] [place] [address] PCP - General FAMILY PRACTICE 04/03/24
--- OUTSIDE RECORDS SUMMARY | 2024-12-08 07:41 | XMS_ITS | Continuity of Care Document ---
Author Organization [facility] Address [address] [place] [address] Phone Care Team Providers Care Fruit Or Nut Crops Farm Manager Name Role Phone Boyd TARANGO, Kavin Unavailable Unavailable Advance Directives Directive Yes / No Effective Date File Name No Information Encounters Encounter Description Practice Location Reason(s) For Visit Diagnoses Date Provider Providers Copied on Encounter [facility], [address], [id number], [place] tel:[phone] [facility] No Information Boyd Vale. [address] [facility], [address], [place], [place], [address] , [place]. tel:[phone] Family History Family Member Type Diagnosis Age At Onset No Information Payers Payer name Insurance type Covered democrat ID Authoriza tion(s) No Information Social History Type Description Quantity Date Captured Comments Sex Female Smoking Status No Information Chief Complaint And Reason For Visit No Information Reason For Referral Reason For Referral No Information History Of Present Illness Encounter Date Complaint History Of Prese nt Illness No Information Functional Status Date Functional Assessmen t No Information Instructions Date Instruction Additional Infor mation No Information Assessments Type Assessment Date No Information Patient Care Teams Name Effective Dates (start - stop) Status Members No Information
== END 2024-12-07 08:00 | disposition home or self-care (01) ==
LOC: ANHED 18:30 → ANHOBPP 12-07 05:14
PROVIDERS: Physician Assistant; Admitting Provider Obstetrics & Gynecology; Emergency Provider Emergency Medicine; Visit Provider Obstetrics & Gynecology
DX: O26.892 Other specified pregnancy related conditions, second trimester (principal); R06.02 Shortness of breath; R79.1 Abnormal coagulation profile; O99.342 Other mental disorders complicating pregnancy, second trimester; F41.9 Anxiety disorder, unspecified; O99.352 Diseases of the nervous system complicating pregnancy, second trimester; G43.909 Migraine, unspecified, not intractable, without status migrainosus; Z3A.26 26 weeks gestation of pregnancy; Z79.899 Other long term (current) drug therapy; Z82.49 Family history of ischemic heart disease and other diseases of the circulatory system
CPT/HCPCS: 36415; 59025; 71275; 80053; 83880; 84484; 85025; 85380; 85610; 85730; 93005; 99285; A9270; G0378; Q9967

== ENCOUNTER 2025-01-27 19:30 | Observation (INO) | payer OTHER, SELFPAY ==
[2025-01-27] VITALS (48 sets, daily range): BP systolic 119–129; BP diastolic 70–79; PULSE 27–114; RESP 18; TEMP 36.7; O2SAT 89–100; BMI 33.1
--- NOTE | ~2025-01-27 | US_ITS ---
EXAMINATION: US OB limited w BPP DATE: 01/28/2025 8:16 CDT INDICATION: decelerations TECHNIQUE: Real-time transabdominal obstetric ultrasound. FINDINGS: No prior studies for comparison. There is a single living fetus in vertex presentation. The placenta is posterior without placenta pr evia. Placental margin to the cervix is 5.7 cm. SUNDEEP is normal measuring 14.4 cm. cardiac activity and movement is noted with a heart rate of 135 beats per minute. Biophysical profile: breathin of 2 movement: 2 of 2 tone: 2 of 2 Amniotic flud pocket: 2 of 2 Total score: 8 of 8 IMPRESSION: 1. Single living intrauterine in vertex presentation. 2: Total biophysical profile score of 8/8. Reviewed, dictated and finalized at location A.
--- OUTSIDE RECORDS SUMMARY | 2025-01-27 19:39 | XMS_ITS | Encounter Summary ---
Author Organization [facility] Address [address] [facility] [place] [address] Care Team Providers Care Orthopaedic Doctor Name Role Phone Beata Orta MD Primary Care Provider [phone] Encounter Details Date Type Department Care Team (Late st Contact Info) Description 08/19/2021 Lab Requisition [facility] [address] [place] [address] Jeanne Roque MD Social History Tobacco Use Types Packs/Day Years Used Date Smoking Tobacco: Never Assessed Comments Unknown Sex and Gender Information Value Date Recorded Sex Assigned at Not on file Legal Sex Female 3:35 PM ARMOR RECONNAISSANCE VEHICLE DRIVER Gender Identity Not on file Sexual Orientation Not on file documented as of this encounter Plan of Treatment Not on file documented as of this encounter Procedures Procedure Name Priority Date/Time Associated Diagnosis Comments HCG BETA BLOOD QUANTITATIVE STAT 08/19/2021 10:46 AM ARMOR RECONNAISSANCE VEHICLE DRIVER documented in this encounter Results * HCG BETA BLOOD QUANTITATIVE (08/19/2021 10:46 AM ARMOR RECONNAISSANCE VEHICLE DRIVER) hCG Quantitative <1.20 mIU/mL 08/19/20 11:25 AM ARMOR RECONNAISSANCE VEHICLE DRIVER [facility] Blood BLOOD SPECIMEN / Unknown Venipuncture / Unknown 08/19/2021 10:46 AM ARMOR RECONNAISSANCE VEHICLE DRIVER 08/19/2021 10:46 AM ARMOR RECONNAISSANCE VEHICLE DRIVER Narrative [facility] - 08/19/2021 11:25 AM ARMOR RECONNAISSANCE VEHICLE DRIVER hCG Reference Range, mIU/mL: Males 0-2.0 Non [...] a serum FSH >20 IU/L makes unlikely. us Jeanne Roque MD LAB - CHEMISTRY ORDERABLES Final Result [facility] [address] [place] [place] [phone] documented in this encounter Visit Diagnoses Not on filedocumented in this encounter Care Teams Orthopaedic Doctor Relationship Specialty Start Date End Date Beata Orta MD [address] [place] [address] PCP - General Family Medicine 07/02/21 documented as of this encounter
--- OUTSIDE RECORDS SUMMARY | 2025-01-27 19:39 | XMS_ITS | Encounter Summary ---
Author Organization [facility] [place] [facility] Address [address] [place] [address] Care Team Providers Care Tank Car Reconditioner Name Role Phone Erica Laura MD Primary Care Provider Unavailable Sly Rasheed MD Primary Care Provider Encounter Details Date Type Department Care Team (Late st Contact Info) Description 07/24/2017 Abstract [place] [address] Erica Laura MD Social History Tobacco Use [...] on filedocumented in this encounter Care Teams Tank Car Reconditioner Relationship Specialty Start Date End Date Erica Laura MD PCP - General 05/30/14 Sly Rasheed MD [address] [place] [address] PCP - General FAMILY PRACTICE 04/03/24 documented as of this encounter
--- OUTSIDE RECORDS SUMMARY | 2025-01-27 19:39 | XMS_ITS | Continuity of Care Document ---
Author Organization [facility] Address [address] [facility] [address] [place] [address] Phone Care Team Providers Care Water Filter Cleaner Name Role Phone Boyd TARANGO, Kavin Unavailable Unavailable Advance Directives Directive Yes / No Effective Date File Name No Information Encounters Encounter Description Practice Location Reason(s) For Visit Diagnoses Date Provider Providers Copied on Encounter [facility], [address], [id number], [place] tel:[phone] [facility] No Information Boyd Vale. [address] [facility], [address], [place], [place], [id number] , [place]. tel:[phone] Family History Family Member Type Diagnosis Age [...]
--- OUTSIDE RECORDS SUMMARY | 2025-01-27 19:39 | XMS_ITS | Clinical Summary ---
Author Organization [facility] Address [address] [place] [address] Care Team Providers Care Microbiology Instructor Name Role Phone Sly Rasheed MD Primary [...] COVID-19 Vaccine ( season) 2024 09/17/2021, 12/30/2020 DTaP, Tdap and Td Vaccines (8 - [...] 5 Years) and At-Risk Patients (6 to 49 Years) Aged Out No longer eligible based [...] VE NON-REACTI VE 04/03/2024 8:17 PM CDT [facility] HEP B CORE IGM NON-REACTI VE NON-REACTI VE 04/03/2024 11:53 PM CDT [facility] HAV IGM NON-REACTI VE NON-REACTI VE 04/03/2024 11:53 PM CDT [facility] HEPATITIS C AB NON-REACTI VE NON-REACTI VE 04/03/2024 11:53 PM CDT [facility] 04/03/2024 6:54 PM CDT Rachana Diaz MD LABORATORY Final Resul t [facility] [address] [place] [address], from Last 3 Months or Most Recently Relevant to Health Maintenance Insurance [facility] Care Teams Microbiology Instructor Relationship Specialty Start Date End Date Sly Rasheed MD [address] [place] [address] PCP - General FAMILY PRACTICE 04/03/24
--- OUTSIDE RECORDS SUMMARY | 2025-01-27 19:39 | XMS_ITS | Clinical Summary ---
Author Organization [facility] Address [address] [place] [address] Care Team Providers Care Hydraulic Rock Drill Operator Name Role Phone Beata Orta MD Primary Care Provider [phone] Source Comments [facility],non-[facility] Affiliates and Associated Physician Practices is amultiple site organization consisting of ambulatory clinics and hospital sitesin [place], [place], [place] and [place]. This disclosure is being madepursuant to the Care Everywhere program and may not contain all information available regarding this patient. 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 Gender Identity Not on file Sexual Orientation Not on file Plan of Treatment Health Maintenance Due Date Last Done Comments PAP SMEAR 1995 HIV SCREENING 2010 DTAP/TDAP/TD VACCINES (1 - Tdap) 2014 HEPATITIS B VACCINE (1 of 3 - 19+ 3-dose series) 2014 COVID-19 VACCINE (2 - 2023-2 5 season) 2024 12/30/2020 DEPRESSION SCREENING 09/20/2024 INFLUENZA VACCINE (Season Ended) 2025 ZOSTER VACCINE (1 of 2) 2045 HEPATITIS [...] on patient's age to complete this topic Insurance [facility] Care Teams Hydraulic Rock Drill Operator Relationship Specialty Start Date End Date Beata Orta MD [address] [place] [address] PCP - General Family Medicine 07/02/21
--- OUTSIDE RECORDS SUMMARY | 2025-01-27 19:39 | XMS_ITS | Continuity of Care Document ---
Author Organization [facility] Address [address] [place] [address] Phone Care Team Providers Care Supervisor Paper Testing Name Role Phone Jacobo Roberson MD Unavailable [...] OFFICE/OUTPAT IENT VISIT EST [facility] , [address] [facility] [address], [place], [address], [place] [phone] [facility] Pain, joint, knee, right 6 Karol Centeno. [address], [place], [place], [address] . tel: [phone] OFFICE/OUTPAT IENT VISIT EST [facility] , [address], [place], [address], [place] [phone] [facility] TFCC (triangular fibrocartilage complex) tear May-2 9-201 5 Kutnik Aly. [address], [place], [place], [address] . tel: [phone] OFFICE/OUTPAT IENT VISIT EST [facility] , [address], [place], [address], [place] tel: [phone] [facility] TFCC (triangular fibrocartilage complex) tear Apr-2 2-201 5 Robertotvera Cervanteswn. [address], [place], [place], [address] . tel: [phone] OFFICE/OUTPAT IENT VISIT EST [facility] , [address], [place], [address], [place] tel:[phone] [facility] Wrist pain, left Apr- 5-201 5 Kutnik Aly. [address], [place], [place], [address] . tel: [phone] [facility] , [address], [place], [address], [place] tel:[phone] [facility] No Information Nov-2 6-201 5 Sanya Berumenn. [address], [place], [place], [address] . tel: [phone] OFFICE/OUTPAT IENT VISIT EST [facility] , [address], [place], [address], [place] tel:[phone] [facility] Wrist contusion Nov-1 8-201 5 Kutnik Aly. [address], [place], [place], [address] . tel: [phone] OFFICE/OUTPAT IENT VISIT NEW [facility] , [address], [place], [address], [place] tel:[phone] [facility] Wrist contusion Feb-2 0-201 5 Kutvera Cervanteswn. [address], [place], [place], [address] . tel: [phone] Referring Provider: Vance Broussard, [address], [place], [address] . tel:[phone] Family History Family Member Type Diagnosis Age At Onset Father Problem (finding) Alive and well Mother Problem (finding) Alive and well Payers Payer name Insurance type Covered republican ID Torrey kwok(s) Blue Access PPO E2 OT [id number] Social History Type Description Quantity Date Captured [...]
[2025-01-27 20:00] LABS: Add Urine Microscopic? YES; Appearance Urine Cloudy (Clear); Bacteria Urine 4+ /hpf; Bilirubin Urine Negative (Negative); Blood Urine Negative (Negative); Color Urine Yellow (Yellow); Glucose Urine UA Negative (Negative); Ketones Urine 3+ mg/dL (Negative); Leukocyte Esterase Ur 3+ LEU/UL (Negative); Need Manual Microscopic Reviewed; Nitrate Urine Negative (Negative); Non Pathogenic Casts >20; Protein Urine 2+ mg/dL (Negative); RBC Urine 0-2 /hpf (0-2); Specific Grav Ur 1.022 (1.001-1.035); Squamous Epithelial Cell Urine Many /hpf (Few); WBC Urine >100 /hpf (0-3); pH Urine 6.5 (5.0-9.0)
[2025-01-27] MEDS: DEXTROSE 5%/LACTATED RINGERS 1,000 ML 999 ML IV CONT (20:35)
[2025-01-27] MEDS: ONDANSETRON INJ 4 MG/2 ML VIAL IV PUSH (20:35)
[2025-01-27] MEDS: LOPERAMIDE HCL 2 MG CAPSULE 4 MG PO ×2 (20:50→23:53)
[2025-01-27] MEDS: DEXTROSE 5%/LACTATED RINGERS 1,000 ML 250 ML IV CONT (21:57)
[2025-01-27] MEDS: ACETAMINOPHEN 500 MG TABLET 1000 MG PO (23:52)
[2025-01-27] MEDS: METOCLOPRAMIDE HCL INJ 10 MG/2 ML VIAL 2 MG IV PUSH (23:53)
[2025-01-28] VITALS (82 sets, daily range): BP systolic 121; BP diastolic 68; PULSE 72–108; TEMP 36.6; O2SAT 96–100
[2025-01-28] MEDS: DEXTROSE 5%/LACTATED RINGERS 1,000 ML 125 ML IV CONT (02:05)
--- NOTE | 2025-01-29 08:47 | P.PNOB_ITS ---
OB - Triage/Final Diagnosis Visit Information Reason for evaluation: other (Nausea, vomiting, diarrhea with dehydration) Comments/Additional reasons for admission: I have assessed the risk for this patient, Natalia Weiss, and determined that she would benefit from observation care. Evaluation Laboratory results: Laboratory Tests 01/27/25 19:46 Urine Color Yellow Urine Appearance Cloudy H Urine pH 6.5 Ur Specific [place] 1.022 Urine Protein 2+ H Urine Glucose (UA) Negative Urine Ketones 3+ H Ur Blood (Man) Negative Urine Nitrate Negative Urine Bilirubin Negative Urine Urobilinogen 1.0 Add Ur Microanalysis Reviewed Leukocyte Esterase Rfl 3+ H Urine RBC 0-2 Urine WBC >100 H Ur Squamous Epith Cells Many H Urine Bacteria 4+ H Urine Casts >20
== END 2025-01-28 08:17 | disposition home or self-care (01) ==
PROVIDERS: Admitting Provider Obstetrics & Gynecology; Visit Provider Obstetrics & Gynecology Gynecology
DX: O21.9 Vomiting of pregnancy, unspecified (principal); O26.899 Other specified pregnancy related conditions, unspecified trimester; R19.7 Diarrhea, unspecified; O99.280 Endocrine, nutritional and metabolic diseases complicating pregnancy, unspecified trimester; E86.0 Dehydration; Z3A.00 Weeks of gestation of pregnancy not specified
CPT/HCPCS: 76815; 76819; 81001; 96374; 96375; A9270; G0378; G0379; J2405; J2765; J7121

== ENCOUNTER 2025-03-10 09:08 | Outpatient (CLI) | payer OTHER, SELFPAY ==
[2025-03-10 09:34] LABS: Hematocrit 29.4 % (37.0-47.0); Hemoglobin 8.8 g/dL (12.0-15.0); Mean Corpuscular HGB Conc 29.9 g/dl (32-36); Mean Corpuscular Hemoglobin 24.3 pg (26-34); Mean Corpuscular Volume 81.2 fl (80-100); Mean Platelet Volume 11.9 fl (7.4-10.4); Platelet Count Result 143 k/mm3 (150-375); Red Blood Count 3.62 M/mm3 (4.2-5.4); Red Cell Distribution Width 16.2 % (11.5-14.5); White Blood Count 11.9 K/mm3 (4.5-10.0)
[2025-03-10 10:31] LABS: Syphilis IgG/IgM Antibody Non-Reactive (Nonreactive)
== END 2025-03-10 09:09 | disposition home or self-care (01) ==
LOC: ANHLAB 09:10
PROVIDERS: Visit Provider Obstetrics & Gynecology
DX: Z34.93 Encounter for supervision of normal pregnancy, unspecified, third trimester (principal); Z3A.00 Weeks of gestation of pregnancy not specified
CPT/HCPCS: 36415; 85027; 86593; 86850; 86900; 86901

== ENCOUNTER 2025-03-12 05:52 | Inpatient (IN) | payer OTHER, SELFPAY ==
--- NOTE | 2025-03-09 04:27 | HP_ITS ---
This report was moved to the correct visit on 03/15/2025. The original report was signed by Kavin Deluca MD on 03/09/25 0427. H&P: HPI History of Present Illness Date/Time: 03/09/25 04:24 Chief Complaint: Term with previous section Narrative: 29-year-old 2 para 1 with previous section admitted for repeat section. has been uncomplicated. Risks and benefits reviewed in full and early ultrasound confirms states Review of Systems Review of Systems: All systems reviewed & are unremarkable except as noted in HPI and below PMFSH Past Medical History Medical History Anxiety Migraine headache without aura Overweight (BMI 25.0-29.9) Eczema Depression Surgical History Surgical History Previous section History of tonsillectomy 08/10/23 Family History Family History Grandparent DepressionSibling Pulmonary embolismFather ObesityGrandparent Diabetes mellitus Social History Social History Social History: Lives at home with her significant other and children. Surrogate decision maker: Chauncey Clayton, boyfriend. Code Status: Full Code. 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 Spiritual care concerns: No Meds Home Medications and Allergies Home Medications ?Medication ?Instructions ?Recorded ?Confirmed ?Type ondansetron HCl 4 mg tablet 4 mg PO Q6-8H PRN nausea and 04/05/24 03/01/25 Rx vomiting #30 tabs sumatriptan succinate 100 mg tablet See Rx Instructions PO .COMPLEX #9 04/05/24 03/01/25 Rx tabs Allergies Allergy/AdvReac Type Severity Reaction Status Date / Time No Known Allergies Allergy Verified 12/06/24 21:22 Exam Const: General: cooperative, healthy appearing and comfortable Nutritional Appearance: average body habitus Orientation/consciousness: oriented to person, oriented to place and oriented to time HENMT: Head: normal to inspection Resp: Effort & Inspection: normal respiratory effort Cardio: Rate: regular rate Rhythm: regular rhythm Heart sounds: S1 normal heart sound present and S2 normal heart sound present GI: Inspection: normal to inspection (Gravid soft uterus) : External Female Exam: normal external appearance Speculum Exam - Vagina: normal appearance of the vagina Speculum Exam - Cervix: normal appearance of the cervix Assessment and Plan Assessment and plan (1) Term : Code(s): Z34.90 - Encounter for supervision of normal , unspecified, unspecified trimester Status: Acute Plan Will proceed with repeat low-transverse section. Patient also was asked for permanent sterilization. She understands this to be permanent irreversible and other alternatives were reviewed Please be advised this is a medical document. It is intended for [id number] communication. It is written in medical language and may contain unfamiliar abbreviations or verbiage. Medical documents are intended to carry relevant information, facts as evident, and the clinical opinion of the practitioner at the time of the encounter. This report may have been done utilizing a voice recognition system. Attempts have been made to correct errors. However, there may be uncorrected grammatical, spelling, and recognition errors present. The file time of this note does not necessarily represent the time the patient was seen. Report Initialized date/time: Kavin Deluca MD 03/09/25 / 0427 Electronically signed by: Kavin Deluca MD 03/09/25 0427
[2025-03-12] VITALS (61 sets, daily range): BP systolic 73–134; BP diastolic 52–95; PULSE 49–162; RESP 14–18; TEMP 36.2–37.6; O2SAT 98–100; BMI 35.0
[2025-03-12] MEDS: ACETAMINOPHEN 500 MG TABLET 1000 MG PO ×3 (06:11→19:52)
[2025-03-12] MEDS: LACTATED RINGERS 1,000 ML 125 ML IV CONT ×2 (06:28→07:34)
--- NOTE | 2025-03-12 06:34 | WPDHPUPDATE1 ---
History and Physical Update Update Date/Time: 03/12/25 06:34 History and Physical has been reviewed, including an updated exam of the patient. There are NO changes in the patient's condition. Risks, benefits, and alternatives have been discussed and questions answered. Patient agrees to proceed with procedure.
--- NOTE | 2025-03-12 06:36 | LDADM ---
This patient, Natalia Weiss, was admitted to Labor/Delivery/Recovery 120 on 03/12/25 at 05:52. Plans for section, pain management and were discussed with patient. Patient/family oriented to hospital policies and general routines including ID bracelet, bed and alarms, visiting hours, pain management, procedures, bathroom and other care routines, personal items, smoking policy, room service/diet and guest tray routines, security routines, and visiting hours. Patient/Family are encouraged to report perceived risks to care and to ask questions if they do not understand what they are told or what they should do. See OBIX for further documentation.
--- NOTE | 2025-03-12 06:47 | WPDHPUPDATE1 ---
History and Physical Update Update Date/Time: 03/12/25 06:47 History and Physical has been reviewed, including an updated exam of the patient. There are NO changes in the patient's condition. Risks, benefits, and alternatives have been discussed and questions answered. Patient agrees to proceed with procedure. Had desires permanent sterilization will undergo bilateral tubal ligation
--- NOTE | 2025-03-12 06:48 | WPDANESEPPF ---
Anes - Initial Pre Proc Eval Procedure: Operation Date: 03/12/25 07:30 Proposed Procedures p Repeat Section with Bilateral Salpingectomy - Kavin Cespedes MD Date/Time: 03/12/25 06:48 Surgeon: Kavin Cespedes MD Pre Op Diagnosis: c section Patient Data Age: 29 Gender: F Height: 1.57 m Weight: 87 kg Last Vital Signs Pulse 84 03/12/25 06:33 BP 122/77 03/12/25 06:33 Allergies Allergy/AdvReac Type Severity Reaction Status Date / Time No Known Allergies Allergy Verified 12/06/24 21:22 Home Medications ?Medication ?Instructions ?Recorded ?Confirmed ?Type ondansetron HCl 4 mg tablet 4 mg PO Q6-8H PRN nausea and 04/05/24 03/01/25 Rx vomiting #30 tabs sumatriptan succinate 100 mg tablet See Rx Instructions PO .COMPLEX #9 04/05/24 03/01/25 Rx tabs hydrocodone 5 mg-acetaminophen 325 1 tablet PO Q4H PRN pain #20 tabs 03/12/25 Rx mg tablet Patient hx anesthesia problems: none Family hx anesthesia problems: none Results Review: All pre-operative results and documents have been reviewed as part of the pre-operative evaluation. [facility] Past Medical History Medical History Anxiety Migraine headache without aura Overweight (BMI 25.0-29.9) Eczema Depression Surgical History Surgical History Previous section History of tonsillectomy 08/10/23 Family History Family History Grandparent Depression Sibling Pulmonary embolism Father Obesity Grandparent Diabetes mellitus Social History Social History Social History: Lives at home with her significant other and children. Surrogate decision maker: Chauncey Clayton boyfriend. Code Status: Full Code. 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 Informed Consent: The patient's anesthetic plan and its attendant risks and benefits were discussed with the patient/family/POA. Questions were solicited and answers provided to the satisfaction of the patient/family/POA.
[2025-03-12] MEDS: FAMOTIDINE 20 MG/2 ML VIAL IV PUSH (06:55)
[2025-03-12] MEDS: ONDANSETRON INJ 4 MG/2 ML VIAL IV PUSH (06:55)
--- NOTE | 2025-03-12 08:12 | S_PTH ---
PATIENT: Natalia Weiss LOC: [facility]2 U#:[id number] AGE/SX: 29/F ROOM: 282 RE03/12/[address]: Kavin Cespedes MD : 1995 BED: 00 DIS: 03/14/2025 SPEC #: [id number] RECD: 03/12/25 14:23 STATUS: QUETA REElva #: [id number] MARIEL: 03/12/25 08:[address]: Kavin Deluca DEPT: [facility] Surgical RECD BY: Edilia Ibrahim ENTERED: 03/12/25 14:25 SP TYPE: Surgical OTHR DR: DIRECTOR OF SPA AND GUEST EXPERIENCE PHYSICIAN Tissues: A - Fallopian Tube Bilateral Procedures: Gross and Microscopic Level 2 Hematoxylin and Eosin Stain
--- NOTE | 2025-03-12 08:27 | P.PCNOB_ITS ---
OB - Delivery Note Procedure Delivery date: 03/12/25 Pre-op diagnosis: Previous Delivery and Other (Sterilization) Post-op Diagnosis: Same Induction method: None Delivery monitor: External FHT Prior to decision for section, ACOG/SMFM labor guidelines were considered and discussed with the patient and staff. Decision made to proceed with the section.: Yes Procedure Performed: Repeat and Tubal Ligation Surgeon: Kavin Cespedes MD Anesthesia type: Spinal Description of Procedure/Findings: Patient was prepped draped in normal sterile fashion placed in the supine position. Excellent spinal anesthetic entered in Pfannenstiel fashion progressive layers to the fascia. Fascia incised midline carried in upward outward fashion bilaterally. Underlying muscles sharply dissected. Parietal peritoneum male by [place] clamps and by sharp dissection. This was carried superiorly and inferiorly to the dome of the bladder bladder blade placed. Bladder blade returned. A low-transverse incision made the head delivered DARIN position. Anterior posterior shoulder delivered spontaneously. Cord clamped x2 and cut. Infant passed off the table given Apgars of 9 [id number] 10 [id number]. Cord blood was drawn. Placenta delivered intact manually. Uterus delivered on the abdomen wrapped in a moist towel. After assuring no membranes or debris remained in the uterus, the uterus was closed continuous running all Vicryl from lateral edge to lateral edge. This was followed by 2nd imbricating running locking 0 Vicryl from lateral edge to lateral edge. Hemostasis was assured. The fallopian tubes and ovaries appeared within normal limits. The right fallopian tube was grasped a good knuckle of tube formed with 0 chromic. This was free tied into a knot. The anterior posterior legs were free tied with 0 chromic and the portion passed off the table after being cut with Metzenbaum scissors. In similar fashion on the left the fallopian tube was grasped in midportion a good knuckle of tube free tied with 0 chromic. The proximal distal legs free tied with 0 chromic in the portion between cut passed off the table. Hemostasis was assured. The uterine incision was inspected 1 last time and noted be hemostatic. The uterus returned the abdomen and the laps were removed and accounted for. The fascia closed with continuous running 0 Vicryl from lateral edge to lateral edge. Irrigation undertaken until clear and the skin closed with 4 Monocryl and glue. QBL was 220cc. All sponge, needle, instrument counts were correct. There were no immediate complications Estimated Blood Loss: 220 Drains: No Packing: No Pathology: Yes Complications: No immediate complications Condition: Stable Disposition: PACU [place] Baby Date of : 03/12/25 Time of : 08:03 Gestational Age by Date: 39 Infant gender: Female Weight (pounds): 7 Weight (ounces): 7 presentation: vertex position: Right Occiput Anterior Placenta delivery description: Manual Removal Cord Vessel Description: 3 Vessels score one minute: 9 score five minutes: 10
--- NOTE | 2025-03-12 08:31 | P.DS_ITS ---
DS: Admitting Diagnosis Discharge Date 03/14/2025 Admitting Diagnosis Term /previous section/desires sterilization DS: Discharge Diagnosis Discharge Diagnosis (1) Term : Code(s): Z34.90 - Encounter for supervision of normal , unspecified, unspecified trimester Status: Acute (2) Previous delivery, delivered: Code(s): O34.219 - Maternal care for unspecified type scar from previous delivery Status: Acute (3) Sterilization: Code(s): Z30.2 - Encounter for sterilization Status: Acute (4) Depression: Code(s): F32.9 - Major depressive disorder, single episode, unspecified Status: Acute DS: Summary Hospital Course Reason for hospitalization: The patient was admitted for repeat section and tubal ligation Hospital Course: Patient's hospital course was unremarkable. She remained afebrile. She was up, voiding without difficulty, eating regular diet, ambulating, and generally without complaints. Time Spent with Patient Time attestation: Total time spent providing and/or coordinating discharge services: Exam Const: General: cooperative, healthy appearing and comfortable Nutritional Appearance: average body habitus Orientation/consciousness: oriented to person, oriented to place and oriented to time HENMT: Head: normal to inspection Resp: Effort & Inspection: normal respiratory effort Cardio: Rate: regular rate Rhythm: regular rhythm Heart sounds: S1 normal heart sound present and S2 normal heart sound present GI: Inspection: normal to inspection (Gravid soft uterus) : External Female Exam: normal external appearance Speculum Exam - Vagina: normal appearance of the vagina Speculum Exam - Cervix: normal appearance of the cervix Discharge Plan Discharge Attending physician on discharge: Kavin Deluca Discharging Clinician: Kavin Deluca Patient Disposition: Home Activity: may shower, no straining, may drive after 2 weeks and pelvic rest Diet: heart healthy Wound Care Instructions: follow printed instructions Patient Instructions: Antibiotic Form Patient Language: Macedonian Stand Alone Forms: General Discharge Information Follow-up/Referrals: Kavin Dleuca MD [Physician] - Discharge Medications: New hydrocodone-acetaminophen 5-325 mg tablet 1 tablet PO Q4H PRN (Reason: pain) Qty: 20 0RF sertraline 50 mg tablet 50 mg PO DAILY Qty: 90 0RF Continued sumatriptan succinate 100 mg tablet See Rx Instructions PO .COMPLEX Qty: 9 0RF Rx Instructions: take 1 tab at onset of headache; if no relief, may repeat 1 tab after at least 2 hrs; max = 2 tabs/24 hrs PO ondansetron HCl 4 mg tablet 4 mg PO Q6-8H PRN (Reason: nausea and vomiting) Qty: 30 3RF Date of admission: 03/12/25 05:52 Primary Care Provider: PHYSICIAN,OCCUPATIONAL MEDICINE PHYSICIAN Admitting Provider: Kavin Deluca Attending physician on admission: Kavin Deluca Condition: Stable
[2025-03-12] MEDS: ceFAZolin 2 GM/D5W 50 ML 2 GM/50 ML BAG IVPB (08:48)
[2025-03-12] MEDS: diphenhydrAMINE HCl INJ 50 MG/ML VIAL 25 MG IV PUSH (09:32)
--- NOTE | 2025-03-12 11:49 | PC.NURSE ---
Patient transferred to post room #282 via stretcher. Support person present. Oriented to unit, room, information board, rooming in, admission packet and security measures. Patient verbalizes understanding.
[2025-03-12] MEDS: SIMETHICONE 80 MG TAB.CHEW PO ×2 (12:11→19:53)
[2025-03-12] MEDS: KETOROLAC 15 MG/ML VIAL (*BKC) IV PUSH (12:13)
[2025-03-12] MEDS: DOCUSATE SODIUM 100 MG CAPSULE PO (15:33)
[2025-03-12] MEDS: DEXTROSE 5%/0.45% SOD CHL 1,000 ML 125 ML IV CONT (15:33)
[2025-03-12] MEDS: MULTIVIT/MIN/PREN/FOL AC/IRON TABLET 1 TAB PO (15:33)
[2025-03-12] MEDS: IBUPROFEN 600 MG TABLET PO (19:53)
[2025-03-12] MEDS: FLUCONAZOLE 150 MG TABLET PO (19:53)
[2025-03-12] MEDS: POLYSACCHARIDE IRON COMPLEX 150 MG CAPSULE PO (19:53)
[2025-03-13] MEDS: oxyCODONE HCL (*CRX) 5 MG TAB IR PO ×2 (00:04→12:33)
[2025-03-13] MEDS: ACETAMINOPHEN 500 MG TABLET 1000 MG PO ×4 (02:56→22:03)
[2025-03-13] MEDS: IBUPROFEN 600 MG TABLET PO ×4 (02:56→22:03)
[2025-03-13] MEDS: oxyCODONE HCL (*CRX) 5 MG TAB IR 10 MG PO (04:35)
[2025-03-13 06:07] LABS: Basophils Absolute Auto 0.1 K/mm3 (0.0-0.1); Basophils Percent Auto 0.4 % (0.2-1.2); Eosinophils Absolute Auto 0.1 K/mm3 (0-0.3); Eosinophils Percent Auto 1.1 % (0-4.4); Hematocrit 26.9 % (37.0-47.0); Immature Granulocyte Absolute 0.12 K/mm3 (0.00-0.031); Immature Granulocyte Percent A 1.1 % (0-0.5); Immature Platelet Fraction Pct 14.7 % (0.9-11.2); Lymphocytes Absolute Auto 2.67 K/mm3 (0.9-3.2); Lymphocytes Percent Auto 23.6 % (18.3-44.2); Mean Corpuscular HGB Conc 29.7 g/dl (32-36); Mean Corpuscular Hemoglobin 24.3 pg (26-34); Mean Corpuscular Volume 81.8 fl (80-100); Mean Platelet Volume 13.3 fl (7.4-10.4); Monocytes Absolute Auto 0.8 K/mm3 (0.1-0.6); Monocytes Percent Auto 7.1 % (2.6-8.5); Neutrophils Absolute Auto 7.6 K/mm3 (1.3-6.7); Neutrophils Percent Auto 66.7 % (45.5-73.1); Nucleated Red Blood Cells Perc 0.2 % (0.0-0.2); Platelet Count Result 128 k/mm3 (150-375); Red Blood Count 3.29 M/mm3 (4.2-5.4); Red Cell Distribution Width 16.7 % (11.5-14.5); White Blood Count 11.3 K/mm3 (4.5-10.0)
--- NOTE | 2025-03-13 06:59 | P.PNOB_ITS ---
OB - PN: Subj Subjective Date/time seen: 03/13/25 06:59 Patient comments: no complaints, pain well controlled, incisional pain, tolerating diet and flatus present baby status: doing well OB - PN: Obj Data Labs 03/13/25 04:20 Labs: Laboratory Results - last 24 hr 03/13/25 04:20 WBC 11.3 H RBC 3.29 L Hgb 8.0 L Hct 26.9 L MCV 81.8 MCH 24.3 L MCHC 29.7 L RDW 16.7 H Plt Count 128 L MPV 13.3 H Immature Gran % (Auto) 1.1 H Neut % (Auto) 66.7 Lymph % (Auto) 23.6 [place] % (Auto) 7.1 Eos % (Auto) 1.1 Baso % (Auto) 0.4 Lymph # (Auto) 2.67 [place] # (Auto) 0.8 H Eos # (Auto) 0.1 Baso # (Auto) 0.1 Abs Immat Gran (auto) 0.12 H Absolute Neuts (auto) 7.6 H Absolute Nucleated RBC 0.020 H Nucleated RBC % 0.2 % Immature Plt Fraction 14.7 H OB - PN A/P Assessment and Plan (1) Term : Code(s): Z34.90 - Encounter for supervision of normal , unspecified, unspecified trimester Status: Acute (2) Previous delivery, delivered: Code(s): O34.219 - Maternal care for unspecified type scar from previous delivery Status: Acute (3) Sterilization: Code(s): Z30.2 - Encounter for sterilization Status: Acute Time Spent With Patient Time: Total time spent is greater than 50% in coordination of care (as documented) at patient's floor/unit and/or counseling patient: Review of Systems 2 Review of Systems: All systems reviewed & are unremarkable except as noted in HPI and below Exam 2 Const: General: cooperative, healthy appearing and comfortable Nutritional Appearance: average body habitus Orientation/consciousness: oriented to person, oriented to place and oriented to time HENMT: Head: normal to inspection Resp: Effort & Inspection: normal respiratory effort Cardio: Rate: regular rate Rhythm: regular rhythm Heart sounds: S1 normal heart sound present and S2 normal heart sound present GI: Inspection: normal to inspection (Gravid soft uterus) : External Female Exam: normal external appearance Speculum Exam - Vagina: normal appearance of the vagina Speculum Exam - Cervix: normal appearance of the cervix
[2025-03-13 07:40] VITALS: BP 122/65; PULSE 70; RESP 18; TEMP 36.6; O2SAT 100
--- NOTE | 2025-03-13 07:50 | PC.NURSE ---
Assisted mother to put baby to breast. Due to 's right nasal stenosis, she has not been able to breastfeed very well. We attempted to put baby on the right breast in football and cross cradle hold. We did obtain some latches off and on but infant struggles to maintain due to decreased ability to breathe through her nose. Mom states that she did not breastfeed her first baby and pumped for 1 week. She did not have great support. We made a plan for the day to continue allowing baby to practice at the breast and to pump to stimulate her breasts. Baby will most likely need to continue supplementation until she is able to manage a good suck, swallow, breathe pattern at the breast. Dr. Garcia saw baby this morning and agrees that she may attempt . Patient is encouraged that she has colostrum at this time and that all babies start out getting small volumes at the breast. We reviewed bottle feeding with the slow flow nipple and increasing intake volume gradually. Patient is encouraged to call out for assistance with her Spectra pump and with throughout the day today. Primary RN updated.
[2025-03-13] MEDS: MULTIVIT/MIN/PREN/FOL AC/IRON TABLET 1 TAB PO (08:28)
[2025-03-13] MEDS: SERTRALINE HCL 50 MG TABLET PO (08:28)
[2025-03-13] MEDS: DOCUSATE SODIUM 100 MG CAPSULE PO ×2 (08:28→15:15)
[2025-03-13] MEDS: POLYSACCHARIDE IRON COMPLEX 150 MG CAPSULE PO ×2 (08:28→15:15)
[2025-03-13] MEDS: SIMETHICONE 80 MG TAB.CHEW PO ×3 (08:30→15:15)
--- NOTE | 2025-03-13 10:26 | PC.NURSE ---
Patient instructed on viewing the discharge video Mother & Baby Care, The First Two Weeks. Patient was given the opportunity and encouraged to ask questions. Patient verbalized understanding of information shared and has been given the mother/baby guide for home reference.
--- NOTE | 2025-03-13 14:17 | WPDANLDPN2 ---
Anes-Prog Note L&D Date/Time: 03/13/25 14:17 Comfortable throughout: section Neuraxial method: spinal Epidural/Spinal procedure site: clean & non-tender Neuro status: Neuro function grossly intact. Cardiovascular status: normal Respiratory status: normal Airway patency: baseline Mental status: baseline Post-Op hydration status: normal Vital Signs: Last Vital Signs Temp 97.8 F 03/13/25 07:40 Pulse 70 03/13/25 07:40 Resp 18 03/13/25 07:40 BP 122/65 03/13/25 07:40 Pulse Ox 100 03/13/25 07:40 O2 Del Method Room Air 03/12/25 23:59 Pain score (VAS): 0/10 I/O: Intake & Output 03/12/25 03/13/25 03/13/25 23:59 07:59 15:59 Intake Total 240 Output Total 1500 Balance -1500 240 Post-procedural complaints: none Patient feedback: Patient satisfied with anesthetic care.
--- NOTE | 2025-03-13 14:17 | WPDANLDNPN2 ---
Anes-Prog Note L&D-Neuraxial Date/Time: 03/13/25 14:17 Neuraxial medications: intrathecal PF morphine Opiod-related complaints: none Patient feedback: Patient satisfied with post-operative pain management.
--- NOTE | 2025-03-13 16:45 | PC.NURSE ---
Met with patient to see how has been going today. She states that baby attempts at breast every feeding. She is off an on but is able to latch for a short time. She then supplements with formula and pumps. Drops of colostrum are given to baby on a clean finger. Mom feels confident and happy with this plan. Encouraged her to call out for any needed assistance.
[2025-03-14 00:15] VITALS: BP 124/81; PULSE 80; RESP 16; TEMP 36.3; O2SAT 98
[2025-03-14] MEDS: IBUPROFEN 600 MG TABLET PO (04:48)
[2025-03-14] MEDS: ACETAMINOPHEN 500 MG TABLET 1000 MG PO (04:48)
--- NOTE | 2025-03-14 07:12 | P.PNOB_ITS ---
OB - PN: Subj Subjective Date/time seen: 03/14/25 07:12 Patient comments: no complaints, pain well controlled, incisional pain, tolerating diet and flatus present feeding status: exclusively breast feeding OB - PN: Obj Data Labs 03/13/25 04:20 OB - PN A/P Assessment and Plan (1) Term : Code(s): Z34.90 - Encounter for supervision of normal , unspecified, unspecified trimester Status: Acute (2) Previous delivery, delivered: Code(s): O34.219 - Maternal care for unspecified type scar from previous delivery Status: Acute (3) Sterilization: Code(s): Z30.2 - Encounter for sterilization Status: Acute Plan home Time Spent With Patient Time: Total time spent is greater than 50% in coordination of care (as documented) at patient's floor/unit and/or counseling patient: Review of Systems 2 Review of Systems: All systems reviewed & are unremarkable except as noted in HPI and below Exam 2 Const: General: cooperative, healthy appearing and comfortable Nutritional Appearance: average body habitus Orientation/consciousness: oriented to person, oriented to place and oriented to time HENMT: Head: normal to inspection Resp: Effort & Inspection: normal respiratory effort Cardio: Rate: regular rate Rhythm: regular rhythm Heart sounds: S1 normal heart sound present and S2 normal heart sound present GI: Inspection: normal to inspection (Gravid soft uterus) : External Female Exam: normal external appearance Speculum Exam - Vagina: normal appearance of the vagina Speculum Exam - Cervix: normal appearance of the cervix
[2025-03-14 07:25] VITALS: BP 124/69; PULSE 62; RESP 18; TEMP 37.2; O2SAT 97
[2025-03-14] MEDS: SERTRALINE HCL 50 MG TABLET PO (08:55)
[2025-03-14] MEDS: SIMETHICONE 80 MG TAB.CHEW PO (08:55)
[2025-03-14] MEDS: DOCUSATE SODIUM 100 MG CAPSULE PO (08:55)
[2025-03-14] MEDS: POLYSACCHARIDE IRON COMPLEX 150 MG CAPSULE PO (08:55)
[2025-03-14] MEDS: MULTIVIT/MIN/PREN/FOL AC/IRON TABLET 1 TAB PO (08:55)
--- NOTE | 2025-03-14 09:35 | PC.NURSE ---
Consulted with mother concerning needs and she shared her ability to independently latch infant optimally without pain. Mother is feeding appropriately for growth of and understands stimulating to eat if needed. Infant has had appropriate feedings in the last 24 hours meets the outcomes for weight, output, blood sugar and jaundice at this time. Reinforced understanding of milk production, transition of milk, signs of adequate intake, transition of stool, prevention/relief of engorgement, plugged ducts, mastitis, responsive watching for feeding cues, the different methods of stimulating to breastfeed 1-3 hours after the start of the last feeding, community resources, and when to call a provider using the resource of the feeding sheet along with the mom and baby guide. Mother voiced understanding of the information shared, is confident to continue effectively her infant at home, when to call for assistance, denies any additional assistance or education at this time. Reported to the Primary RN.
[2025-03-15 10:22] VITALS: BP 120/71; PULSE 77; RESP 18; TEMP 36.7; O2SAT 99
== END 2025-03-14 10:55 | disposition home or self-care (01) | DRG 785 ==
LOC: ANHLDR 06:34 → ANHOB2 11:10
PROVIDERS: Admitting Provider Obstetrics & Gynecology; Visit Provider Obstetrics & Gynecology
PROC: 10D00Z1 Extraction of Products of Conception, Low, Open Approach (ICD-10-PCS; CPT 59514; principal; 2025-03-12 07:30)
DX: O34.211 Maternal care for low transverse scar from previous cesarean delivery (principal); Z37.0 Single live birth; Z3A.39 39 weeks gestation of pregnancy; Z30.2 Encounter for sterilization; O99.344 Other mental disorders complicating childbirth; F32.A Depression, unspecified
CPT/HCPCS: 36415; 85025; 85055; 88302; A9270; J0690; J1200; J1596; J1885; J2274; J2371; J2405; J2590; J7120

== ENCOUNTER 2025-04-20 08:31 | Emergency (ER) | payer OTHER, SELFPAY ==
--- NOTE | ~2025-04-20 | US_ITS ---
EXAMINATION: US pelvic complete w TV DATE: 04/20/2025 10:11 INDICATION: Heavy vaginal bleeding 6 weeks post section TECHNIQUE: Multiple transabdominal and endovaginal sonographic images of the pelvis were obtained. COMPARISON: None. FINDINGS: The uterus measures 8.2 x 4.7 x 6.9 cm. The endometrial complex measures 4-5 mm in thickness. 5 mm a nechoic nabothian cyst at the cervix. section scar with linear echogenic likely suture mater ial along the anterior lower uterine segment. The right ovary measures 2.7 x 1.8 x 2.4 cm. The left o vary measures 2.9 x 2.8 x 1.8 cm. There a few bilateral Emi anechoic ovarian cysts/follicles. V ascular flow identified in both ovaries on color Doppler. Small amount of likely physiologic anechoic free fluid in the cul-de-sac. There is no free fluid in the pelvis. IMPRESSION: 1. section scar along the anterior lower uterine segment with otherwise normal uterus with n ormal endometrial complex measuring 4-5 mm in thickness. Reviewed, dictated and finalized at location A. IMPRESSION: 1. section scar along the anterior lower uterine segment with otherwis e normal uterus with normal endometrial complex measuring 4-5 mm in thickness.
--- OUTSIDE RECORDS SUMMARY | 2025-04-20 08:33 | XMS_ITS | Clinical Summary ---
Author Organization [facility] Address [address] [place] [address] Care Team Providers Care Securities And Real Estate Director Name Role Phone Beata Orta MD Primary Care Provider Source Comments [facility],non-[facility] Affiliates and Associated Physician Practices is amultiple site organization consisting of ambulatory clinics and hospital sitesin [place], [place], [place] and [place]. This disclosure is being madepursuant to the Care Everywhere program and may not contain all information available regarding this patient. 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 REPAIRER Gender Identity Not on file Sexual Orientation Not on file Plan of Treatment Health Maintenance Due Date Last Done Comments HIV SCREENING 2010 DTAP/TDAP/TD VACCINES (1 - Tdap) 2014 HEPATITIS B VACCINE (1 of 3 - 19+ 3-dose series) 2014 PAP SMEAR 2016 HPV VACCINE (1 - 3-dose SCDM series) 2022 COVID-19 VACCINE (2 - 2023-2 5 season) 2024 12/30/2020 DEPRESSION SCREENING 09/20/2024 INFLUENZA VACCINE (#1) 2025 ZOSTER VACCINE (1 of 2) 2045 [...] patient's age to complete this topic Insurance [facility] SELF PAY NO INSURANCE Member Subscriber Plan / Payer (Ef fective for All Dates) Name:Natalia Weiss R Member ID:Not on file Relation to Subscriber:Not on file Name:NATALIA BONILLA Subscriber ID:Not on file (Home) Address: [address] [place] [place] [address] Payer ID:Not on file Group ID:Not on file Type:Self Pay Address: [facility] * Guarantor: NATALIA WEISS Account Type Relation to Patient Date of Phone Billing Address Personal/Family Spouse Care Teams Securities And Real Estate Director Relationship Specialty Start Date End Date Beata Orta MD [address] [place] [address] PCP - General Family Medicine 07/02/21
--- OUTSIDE RECORDS SUMMARY | 2025-04-20 08:33 | XMS_ITS | Encounter Summary ---
Author Organization [facility] Address [address] [facility] [place] [address] Care Team Providers Care Dump Motor Operator Name Role Phone Beata Orta MD Primary Care Provider [phone] Encounter Details Date Type Department Care Team (Late st Contact Info) Description 08/19/2021 Lab Requisition [facility] [address] [place] [address] Jeanne Roque MD Social History Tobacco Use Types Packs/Day Years Used Date Smoking Tobacco: Never Assessed Comments Unknown Sex and Gender Information Value Date Recorded Sex Assigned at Not on file Legal Sex Female 3:35 PM RESEARCH CONSULTANT Gender Identity Not on file Sexual Orientation Not on file documented as of this encounter Plan of Treatment Not on file documented as of this encounter Procedures Procedure Name Priority Date/Time Associated Diagnosis Comments HCG BETA BLOOD QUANTITATIVE STAT 08/19/2021 10:46 AM RESEARCH CONSULTANT documented in this encounter Results * HCG BETA BLOOD QUANTITATIVE (08/19/2021 10:46 AM RESEARCH CONSULTANT) hCG Quantitative <1.20 mIU/mL 08/19/20 11:25 AM RESEARCH CONSULTANT [facility] Blood BLOOD SPECIMEN / Unknown Venipuncture / Unknown 08/19/2021 10:46 AM RESEARCH CONSULTANT 08/19/2021 10:46 AM RESEARCH CONSULTANT Narrative [facility] - 08/19/2021 11:25 AM RESEARCH CONSULTANT hCG Reference Range, mIU/mL: Males 0-2.0 Non [...] MD LAB - CHEMISTRY ORDERABLES Final Result [facility] [address] [id number] documented in this encounter Visit Diagnoses Not on filedocumented in this encounter Care Teams Dump Motor Operator Relationship Specialty Start Date End Date Beata Orta MD [address] [place] [id number] PCP - General Family Medicine 07/02/21 documented as of this encounter
--- OUTSIDE RECORDS SUMMARY | 2025-04-20 08:33 | XMS_ITS | Referral Summary ---
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 on file Not on file Last Filed Vital Signs Vital Sign Reading Time Taken Comments Blood Pressure 110/68 10/19/2024 10:33 AM KITCHEN CLEANER Pulse 77 10/19/2024 10:33 AM KITCHEN CLEANER Temperature 36.7 C (98 F) 05/29/2024 7:54 AM CDT Respiratory Rate 16 04/12/2024 2:32 PM CDT Oxygen Saturation 98% 10/19/2024 10:33 AM KITCHEN CLEANER Inhaled Oxygen Concentration - - Weight 75.1 kg (165 lb 8 oz) 10/19/2024 10:33 AM KITCHEN CLEANER Height 157.5 cm (5' 2.01) 10/19/2024 10:[address] Body Mass Index 30.26 10/19/2024 10:33 AM KITCHEN CLEANER Plan of Treatment Not on file Insurance [facility] CHOICE PLUS Care Teams Process Development Associate Relationship Specialty Start Date End Date Sly Rasheed MD [address] [place] [address] [place] [address] PCP - General Family Practice 04/06/24
--- OUTSIDE RECORDS SUMMARY | 2025-04-20 08:33 | XMS_ITS | Clinical Summary ---
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 on file Not on file Obstetrics History Last Filed Vital Signs Vital Sign Reading Time Taken Comments Blood Pressure 110/68 10/19/2024 10:33 AM MICROFABRICATION ENGINEER MANAGER Pulse 77 10/19/2024 10:33 AM MICROFABRICATION ENGINEER MANAGER Temperature 36.7 C (98 F) 05/29/2024 7:54 AM CDT Respiratory Rate 16 04/12/2024 2:32 PM CDT Oxygen Saturation 98% 10/19/2024 10:33 AM MICROFABRICATION ENGINEER MANAGER Inhaled Oxygen Concentration - - Weight 75.1 kg (165 lb 8 oz) 10/19/2024 10:33 AM MICROFABRICATION ENGINEER MANAGER Height 157.5 cm (5' 2.01) 10/19/2024 10:[address] Body Mass Index 30.26 10/19/2024 10:33 AM MICROFABRICATION ENGINEER MANAGER Plan of Treatment Health Maintenance Due Date Last Done Comments Cervical Cancer Screening 1995 Depression Screening 1995 Hepatitis C Screening 1995 Varicella Vaccines (1 of 2 - 13+ 2-dose series) 2008 Hepatitis B Screening 2013 Regular Well Visit/Exam 18-64 2013 HPV Vaccines (1 - 3-dose SCD M series) 2022 Covid-19 Vaccine (3 - 2023-2 5 season) 2024 09/17/2021, 12/30/2020 Influenza Vaccine (#1) 2025 DTaP/Tdap/Td Vaccine (2 - Td or Tdap) 07/02/2032 07/02/2022 Pneumococcal vaccine <65 Aged Out No longer eligible based on patient's age to complete this topic Insurance [facility] CHOICE PLUS [facility] CHOICE PLUS Care Teams Solaris Administrator Relationship Specialty Start Date End Date Sly Rasheed MD [address] [facility] [place] [address] PCP - General Family Practice 04/06/24
--- OUTSIDE RECORDS SUMMARY | 2025-04-20 08:33 | XMS_ITS | Continuity of Care Document ---
Author Organization [facility] Address [address] [place] [address] Phone Care Team Providers Care Take Off Worker Name Role Phone Jacobo Roberson MD Unavailable [...] OFFICE/OUTPAT IENT VISIT EST [facility] , [address] [facility] [address], [place], [address], [place] tel:[phone] [facility] Pain, joint, knee, right 6 Karol Centeno. [address], [place], [place], [id number] . tel: [phone] OFFICE/OUTPAT IENT VISIT EST [facility] , [address], [place], [address], [place] [phone] [facility] TFCC (triangular fibrocartilage complex) tear May-2 9-201 5 Kutnik Aly. [address], [place], [place], [id number] . tel: [phone] OFFICE/OUTPAT IENT VISIT EST [facility] , [address], [place], [address], [place] tel:[phone] [facility] TFCC (triangular fibrocartilage complex) tear Apr-2 2-201 5 Robertotvera Cervanteswn. [address], [place], [place], [id number] . tel: [phone] OFFICE/OUTPAT IENT VISIT EST [facility] , [address] [facility] [address], [place], [address], [place] tel:[phone] [facility] Wrist pain, left Apr- 5-201 5 Kutnik Aly. [address], [place], [place], [id number] . tel: [phone] [facility] , [address], [place], [address], [place] tel:[phone] [facility] No Information Nov-2 6-201 5 Sanya Berumenn. [address], [place], [place], [id number] . tel: [phone] OFFICE/OUTPAT IENT VISIT EST [facility] , [address] [facility] [address], [place], [address], [place] tel:[phone] [facility] Wrist contusion Nov-1 8-201 5 Kutnik Aly. [address], [place], [place], [id number] . tel: [phone] OFFICE/OUTPAT IENT VISIT NEW [facility] , [address], [place], [address], [place] tel:[phone] [facility] Wrist contusion Feb-2 0-201 5 Kutvera Cervanteswn. [address], [place], [place], [id number] . tel: [phone] Referring Provider: Vance Broussard, [address] [place], [place], [address] . tel:[phone] Family History Family Member Type Diagnosis Age At Onset Father Problem (finding) Alive and well Mother Problem (finding) Alive and well Payers Payer name Insurance type Covered alliance party ID Torrey kwok(s) Blue Access PPO E2 OT [id number] Social History Type Description Quantity Date Captured [...]
--- OUTSIDE RECORDS SUMMARY | 2025-04-20 08:33 | XMS_ITS | Continuity of Care Document ---
Author Organization [facility] Address [address] [facility] [address] [place] [address] Phone Care Team Providers Care Assistant Therapy Aide Name Role Phone oByd TARANGO MD, Kavin Unavailable Unavailable Advance Directives Directive Yes / No Effective Date File Name No Information Encounters Encounter Description Practice Location Reason(s) For Visit Diagnoses Date Provider Providers Copied on Encounter [facility], [address] [facility], [place], [place], [id number], [place] tel:[phone] [facility] No Information [facility]. [address] [facility], [facility] [address], [place], [place], [id number] , [place]. tel:[phone] Family History Family Member Type Diagnosis Age [...]
[2025-04-20 08:46] VITALS: BP 108/69; PULSE 61; RESP 16; TEMP 36.4; O2SAT 100
--- NOTE | 2025-04-20 08:58 | ED_ITS ---
HPI - General Adult General Chief complaint: Vaginal Bleeding Stated complaint: sent for D&C Time Seen by Provider: 04/20/25 08:47 History of Present Illness HPI narrative: 30-year-old female presents emergency department for evaluation for heavy vaginal bleeding. Patient did have a approximately 6 weeks ago, patient began having increased vaginal bleeding and increased abdominal pain. Patient did have an ultrasound approximately 10 days ago. Patient was started on TXA and did take 2 doses last night. Patient is still having vaginal bleeding and lower abdominal pain. Patient states she did have close contact with OB Gyne today and they told her to present to the emergency department for an anticipated D&C. Patient has been NPO since midnight. Related Data Allergies Allergy/AdvReac Type Severity Reaction Status Date / Time No Known Allergies Allergy Verified 12/06/24 21:22 Review of Systems 2 Review of Systems: All systems reviewed & are unremarkable except as noted in HPI and below PMFSH Past Medical History Medical History Anxiety Migraine headache without aura Overweight (BMI 25.0-29.9) Eczema Depression Surgical History Surgical History Previous section History of tonsillectomy 08/10/23 Family History Family History Grandparent Depression Sibling Pulmonary embolism Father Obesity Grandparent Diabetes mellitus Social History Social History Social History: Lives at home with her significant other and children. Surrogate decision maker: Chauncey Clayton, boyfriend. Code Status: Full Code. Smoking status: Never smoker Second hand tobacco smoke exposure: Yes Alcohol intake: never Alcohol use details: VERY RARE Substance use: never Substance use type: does not use Do You Feel Safe in your Home?: Yes Lack of Transportation: No Lack of Food: Never True Current Housing: I Have Housing Concerned About Future Housing: No Difficulty Paying Gas/Electric Bills: No Difficulty Paying for Meds: No Currently Unemployed: No Education: Master's Degree or Higher Difficulty w/ Childcare or Family Care: No Living arrangements: with family Occupation/Education: occupation Additional occupation/education comments: Teacher @ [employer] Gender identity (if verbalized by the patient): Female Spiritual care concerns: No Exam 2 Narrative: APPEARANCE: Well appearing, no pain, no distress, well-nourished. HEAD: normocephalic, atraumatic. EYES: PERRLA/EOMI, conjunctivae clear. NOSE: Normal no drainage EARS:TMS clear with good light reflex. THROAT: Pharynx clear, no exudate. NECK: Supple. No adenopathy, no masses. RESPIRATORY: Airway patent, respirations nonlabored. Clear to auscultation bilaterally, no rales, rhonchi, wheezing. CARDIOVASCULAR: Regular rate and rhythm without murmurs rubs or gallops. ABDOMINAL: Soft, nontender, nondistended, normal bowel sounds MUSCULOSKELETAL: Moves all extremities. Strength/ROM intact, No edema, No calf tenderness. NEURO: Alert. Cranial nerves II through XII intact. Good gait. Good coordination SKIN: Warm, dry. Normal Color Course Vital Signs Vital signs: Vital Signs Temperature 97.6 F 04/20/25 08:46 Pulse Rate 61 04/20/25 08:46 Respiratory Rate 16 04/20/25 08:46 Blood Pressure 108/69 04/20/25 08:46 Pulse Oximetry 100 04/20/25 08:46 Oxygen Delivery Room Air 04/20/25 08:46 Temperature 97.6 F 04/20/25 08:46 Pulse Rate 60 04/20/25 12:00 Respiratory Rate 16 04/20/25 12:00 Blood Pressure 113/69 04/20/25 12:00 Pulse Oximetry 100 04/20/25 12:00 Oxygen Delivery Room Air 04/20/25 08:46 Medical Decision Making [facility] Narrative Medical decision making narrative: 30-year-old female present to the emergency department for evaluation for vaginal bleeding. Patient is currently afebrile with no leukocytosis hemoglobin 11.0 which is higher than her typical baseline. INR 1.0. No acute abnormalities on the patient's CMP with negative lactic acid. Patient does have blood in her urine sample in 6-10 wbc's.. Patient was of burning with urination. Urine culture was ordered. Patient was started on IV Rocephin the emergency department and discharged home with Keflex. Ultrasound did show normal uterus and OB Gyne was consulted. Dr. aftab cespedes was comfortable with the patient continue to take her TXA and to have close outpatient follow-up. Patient was updated results of her workup and all questions concerns were addressed. Differential Diagnosis Differential Diagnosis: Retained products of conception, hemorrhage, vaginal bleeding, UTI Vital Signs Vital Signs: Vital Signs Temperature 97.6 F 04/20/25 08:46 Pulse Rate 61 04/20/25 08:46 Respiratory Rate 16 04/20/25 08:46 Blood Pressure 108/69 04/20/25 08:46 Pulse Oximetry 100 04/20/25 08:46 Oxygen Delivery Room Air 04/20/25 08:46 Temperature 97.6 F 04/20/25 08:46 Pulse Rate 60 04/20/25 12:00 Respiratory Rate 16 04/20/25 12:00 Blood Pressure 113/69 04/20/25 12:00 Pulse Oximetry 100 04/20/25 12:00 Oxygen Delivery Room Air 04/20/25 08:46 Lab Data Lab results reviewed: Yes I reviewed the patient's lab results. 04/20/25 09:04 04/20/25 09:02 Labs: Lab Results 04/20/25 04/20/25 04/20/25 Range/Units 09:02 09:04 11:12 WBC 4.3 L (4.5-10.0) K/mm3 RBC 4.35 (4.2-5.4) M/mm3 Hgb 11.0 L D (12.0-15.0) g/dL Hct 36.3 L (37.0-47.0) % MCV 83.4 (80-100) fl MCH 25.3 L (26-34) pg MCHC 30.3 L (32-36) g/dl RDW 17.4 H (11.5-14.5) % Plt Count 205 D (150-375) k/mm3 MPV 10.8 H (7.4-10.4) fl Immature Gran % (Auto) 0.2 (0-0.5) % Neut % (Auto) 46.1 (45.5-73.1) % Lymph % (Auto) 43.7 (18.3-44.2) % [place] % (Auto) 6.5 (2.6-8.5) % Eos % (Auto) 3.0 (0-4.4) % Baso % (Auto) 0.5 (0.2-1.2) % Lymph # (Auto) 1.88 (0.9-3.2) K/mm3 [place] # (Auto) 0.3 (0.1-0.6) K/mm3 Eos # (Auto) 0.1 (0-0.3) K/mm3 Baso # (Auto) 0.0 (0.0-0.1) K/mm3 Abs Immat Gran (auto) 0.01 (0.00-0.031) K/mm3 Absolute Neuts (auto) 2.0 (1.3-6.7) K/mm3 Absolute Nucleated RBC 0.000 (0.0-0.012) K/mm3 Nucleated RBC % 0.0 (0.0-0.2) % PT 13.2 (11.1-14.7) Seconds INR 1.0 APTT 30.2 (22.3-36.8) Seconds Sodium 140 (137-145) mmol/L Potassium 4.0 (3.4-5.0) mmol/L Chloride 109 H (98-107) mmol/L Carbon Dioxide 25 (22-30) mmol/L Anion Gap 6 (4-12) mmol/L BUN 10 D (7-17) mg/dL Creatinine 0.80 (0.7-1.0) mg/dL Estim Creat Clear Calc 85 ml/min Estimated GFR > 60 (59 - ) Glucose 95 (65-110) mg/dL Lactic Acid 1.0 (0.7-2.0) mmol/L Calcium 9.3 (8.4-10.2) mg/dL Total Bilirubin 0.6 (0.2-1.3) mg/dL AST 36 (14-36) U/L ALT 31 (6-35) U/L Alkaline Phosphatase 73 (38-126) U/L Total Protein 7.0 (6.3-8.2) g/dL Albumin 4.0 (3.5-5.1) g/dL Urine Color Red H (Yellow) Urine Appearance Other (Clear) Urine pH TNP Ur Specific [place] TNP Urine Protein TNP Urine Glucose (UA) TNP Urine Ketones TNP Ur Blood (Man) TNP Urine Nitrate TNP Urine Bilirubin TNP Urine Urobilinogen TNP Leukocyte Esterase Rfl TNP Urine RBC >100 H (0-2) /hpf Urine WBC 6-10 H (0-3) /hpf Urine Bacteria Unable to determine /hpf Blood Type O Positive Antibody Screen Negative Imaging Data Radiologist's impression: Impressions Pelvic/Transvag US 04/20/25 10:19 IMPRESSION: 1. section scar along the anterior lower uterine segment with otherwise normal uterus with normal endometrial complex measuring 4-5 mm in thickness. Discharge Plan Discharge Clinical Impression: Dysuria, Vaginal bleeding Patient Disposition: Home Condition: Stable Instructions: Antibiotic Form, Abnormal (Dysfunctional) Uterine Bleeding (ED), Dysuria (ED) Additional Instructions: Antibiotic as directed. Continue to take your TXA. Have close follow-up with OB Gyne. If you have any worsening symptoms then please call or return to the emergency department. Patient Language: Cameroonian Prescriptions: New phenazopyridine [Pyridium] 100 mg tablet 100 mg PO TID PRN (Reason: pain) Qty: 6 0RF cephalexin 500 mg capsule 500 mg PO Q8H 7 Days Qty: 21 0RF No Action sumatriptan succinate 100 mg tablet See Rx Instructions PO .COMPLEX Qty: 9 0RF Rx Instructions: take 1 tab at onset of headache; if no relief, may repeat 1 tab after at least 2 hrs; max = 2 tabs/24 hrs PO ondansetron HCl 4 mg tablet 4 mg PO Q6-8H PRN (Reason: nausea and vomiting) Qty: 30 3RF hydrocodone-acetaminophen 5-325 mg tablet 1 tablet PO Q4H PRN (Reason: pain) Qty: 20 0RF sertraline 50 mg tablet 50 mg PO DAILY Qty: 90 0RF Follow-up/Referrals: PHYSICIAN,V/STOL [facility]ANDING SIGNAL OFFICER [Primary Care Provider] -
--- OUTSIDE RECORDS SUMMARY | 2025-04-20 09:02 | XMS_ITS | Clinical Summary ---
Author Organization [facility] Address [address] [facility] [place] [address] Care Team Providers Care Director Security Risk Management Name Role Phone Beata Orta MD Primary Care Provider [phone] Source Comments [facility],non-[facility] Affiliates and Associated Physician Practices is amultiple site organization consisting of ambulatory clinics and hospital sitesin [place], [place], [place] and [place]. This disclosure is being madepursuant to the Care Everywhere program and may not contain all information available regarding this patient. Last updated 18.[facility] [employer] Allergies No known active allergies Social History Tobacco Use Types Packs/Day Years Used Date Smoking Tobacco: Never Assessed Comments Unknown Sex and Gender Information Value Date Recorded Sex Assigned at Not on file Legal Sex Female 3:35 PM VENTILATION EQUIPMENT TENDER Gender Identity Not on file Sexual Orientation [...] patient's age to complete this topic Insurance [facility] SELF PAY NO INSURANCE Member Subscriber Plan / Payer (Ef fective for All Dates) Name:Natalia Weiss R Member ID:Not on file Relation to Subscriber:Not on file Name:NATALIA BONILLA Subscriber ID:Not on file (Home) Address: [address] [place] [address] Payer ID:Not on file Group ID:Not on file Type:Self Pay Address: [facility] * Guarantor: NATALIA WEISS Account Type Relation to Patient Date of Phone Billing Address Personal/Family Spouse Care Teams Director Security Risk Management Relationship Specialty Start Date End Date Beata Orta MD [address] [place] [address] PCP - General Family Medicine 07/02/21
--- OUTSIDE RECORDS SUMMARY | 2025-04-20 09:02 | XMS_ITS | Clinical Summary ---
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 on file Not on file Obstetrics History Last Filed Vital Signs Vital Sign Reading Time Taken Comments Blood Pressure 110/68 10/19/2024 10:33 AM EXTRUSION PRESS ADJUSTER Pulse 77 10/19/2024 10:33 AM EXTRUSION PRESS ADJUSTER Temperature 36.7 C (98 F) 05/29/2024 7:54 AM CDT Respiratory Rate 16 04/12/2024 2:32 PM CDT Oxygen Saturation 98% 10/19/2024 10:33 AM EXTRUSION PRESS ADJUSTER Inhaled Oxygen Concentration - - Weight 75.1 kg (165 lb 8 oz) 10/19/2024 10:33 AM EXTRUSION PRESS ADJUSTER Height 157.5 cm (5' 2.01) 10/19/2024 10:[address] Body Mass Index 30.26 10/19/2024 10:33 AM EXTRUSION PRESS ADJUSTER Plan of Treatment Health Maintenance Due Date [...] to complete this topic Insurance [facility] CHOICE PLUS [facility] CHOICE PLUS Care Teams Brush Cleaner Relationship Specialty Start Date End Date Sly Rasheed MD [address] [place] [address] PCP - General Family Practice 04/06/24
--- OUTSIDE RECORDS SUMMARY | 2025-04-20 09:02 | XMS_ITS | Continuity of Care Document ---
Author Organization [facility] Address [address] [place] [address] Phone Care Team Providers Care Bundle Cutter Name Role Phone Jacobo Roberson MD Unavailable [...] OFFICE/OUTPAT IENT VISIT EST [facility] , [address] [facility] [address], [place], [address], [place] tel:[phone] [facility] Pain, joint, knee, right 6 Karol Centeno. [address], [place], [place], [address] . tel: [phone] OFFICE/OUTPAT IENT VISIT EST [facility] , [address], [place], [address], [place] [phone] [facility] TFCC (triangular fibrocartilage complex) tear May-2 9-201 5 Kutnik Aly. [address], [place], [place], [address] . tel: [phone] OFFICE/OUTPAT IENT VISIT EST [facility] , [address], [place], [address], [place] tel:[phone] [facility] TFCC (triangular fibrocartilage complex) tear Apr-2 2-201 5 Robertotvera Cervanteswn. [address], [place], [place], [address] . tel: [phone] OFFICE/OUTPAT IENT VISIT EST [facility] , [address] [facility] [address], [place], [address], [place] tel:[phone] [facility] Wrist pain, left Apr- 5-201 5 Kutnik Aly. [address], [place], [place], [address] . tel: [phone] [facility] , [address] [facility] [address], [place], [address], [place] tel:[phone] [facility] No Information Nov-2 6-201 5 Sanya Berumenn. [address], [place], [place], [address] . tel: [phone] OFFICE/OUTPAT IENT VISIT EST [facility] , [address], [place], [address], [place] tel:[phone] [facility] Wrist contusion Nov-1 8-201 5 Kutnik Aly. [address], [place], [place], [address] . tel: [phone] OFFICE/OUTPAT IENT VISIT NEW [facility] , [address], [place], [address], [place] tel:[phone] [facility] Wrist contusion Feb-2 0-201 5 Kutvera Cervanteswn. [address], [place], [place], [address] . tel: [phone] Referring Provider: Vance Broussard, [address], [place], [address] . tel:[phone] Family History Family Member Type Diagnosis Age At Onset Father Problem (finding) Alive and well Mother Problem (finding) Alive and well Payers Payer name Insurance type Covered alliance party ID Torrey kwok(s) Blue Access PPO [id number] [id number] Social History Type Description Quantity Date Captured [...]
--- OUTSIDE RECORDS SUMMARY | 2025-04-20 09:02 | XMS_ITS | Encounter Summary ---
Author Organization [facility] Address [address] [facility] [place] [address] Care Team Providers Care Bar Roller Name Role Phone Beata Orta MD Primary Care Provider [phone] Encounter Details Date Type Department Care Team (Late st Contact Info) Description 08/19/2021 Lab Requisition [facility] [address] [place] [address] Jeanne Roque MD Social History Tobacco Use Types Packs/Day Years Used Date Smoking Tobacco: Never Assessed Comments Unknown Sex and Gender Information Value Date Recorded Sex Assigned at Not on file Legal Sex Female 3:35 PM HOUSE FATHER Gender Identity Not on file Sexual Orientation Not on file documented as of this encounter Plan of Treatment Not on file documented as of this encounter Procedures Procedure Name Priority Date/Time Associated Diagnosis Comments HCG BETA BLOOD QUANTITATIVE STAT 08/19/2021 10:46 AM HOUSE FATHER documented in this encounter Results * HCG BETA BLOOD QUANTITATIVE (08/19/2021 10:46 AM HOUSE FATHER) hCG Quantitative <1.20 mIU/mL 08/19/20 11:25 AM HOUSE FATHER [facility] Blood BLOOD SPECIMEN / Unknown Venipuncture / Unknown 08/19/2021 10:46 AM HOUSE FATHER 08/19/2021 10:46 AM HOUSE FATHER Narrative [facility] - 08/19/2021 11:25 AM HOUSE FATHER hCG Reference Range, mIU/mL: Males 0-2.0 Non [...] LAB - CHEMISTRY ORDERABLES Final Result [facility] [address] [id number] documented in this encounter Visit Diagnoses Not on filedocumented in this encounter Care Teams Bar Roller Relationship Specialty Start Date End Date Beata Orta MD [address] [place] [address] PCP - General Family Medicine 07/02/21 documented as of this encounter
--- OUTSIDE RECORDS SUMMARY | 2025-04-20 09:02 | XMS_ITS | Continuity of Care Document ---
Author Organization [facility] Address [address] [facility] [address] [place] [address] Phone Care Team Providers Care Clothing Patternmaker Name Role Phone Boyd TARANGO MD, Kavin Unavailable Unavailable Advance Directives Directive Yes / No Effective Date File Name No Information Encounters Encounter Description Practice Location Reason(s) For Visit Diagnoses Date Provider Providers Copied on Encounter [facility] [employer] [facility], [address] [facility], [place], [place], [id number], [place] tel:[phone] [facility] No Information Boyd Vale. [address] [facility], [facility] [address], [place], [place], [address] , [place]. tel:[phone] Family History Family Member Type Diagnosis Age At Onset No Information Payers Payer name Insurance type Covered constitution party ID Authoriza tion(s) No Information Social History [...]
--- OUTSIDE RECORDS SUMMARY | 2025-04-20 09:02 | XMS_ITS | Referral Summary ---
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26 10/19/2024 10:33 AM TERMITE CONTROL SERVICE REPRESENTATIVE Plan of Treatment Not on file Insurance [facility] CHOICE PLUS [facility] HMO/PPO Address: [address] [place] [address] [facility] HMO/PPO Address: [address] [address] [place] [address] Care Teams Clinical Investigator Relationship Specialty Start Date End Date Sly Rasheed MD [address] [place] [address] [place] [address] PCP - General Family Practice 04/06/24
[2025-04-20 09:11] LABS: Hematocrit 36.3 % (37.0-47.0); Hemoglobin 11.0 g/dL (12.0-15.0); Immature Granulocyte Percent A 0.2 % (0-0.5); Lymphocytes Absolute Auto 1.88 K/mm3 (0.9-3.2); Mean Corpuscular HGB Conc 30.3 g/dl (32-36); Mean Corpuscular Hemoglobin 25.3 pg (26-34); Mean Corpuscular Volume 83.4 fl (80-100); Nucleated Red Blood Cells Absolute Auto 0.000 K/mm3 (0.0-0.012); Nucleated Red Blood Cells Perc 0.0 % (0.0-0.2); Platelet Count Result 205 k/mm3 (150-375); Red Blood Count 4.35 M/mm3 (4.2-5.4); White Blood Count 4.3 K/mm3 (4.5-10.0)
[2025-04-20 09:25] LABS: INR 1.0; Prothrombin Time 13.2 Seconds (11.1-14.7)
[2025-04-20 09:26] LABS: Partial Thromboplastin Time 30.2 Seconds (22.3-36.8)
[2025-04-20 09:30] LABS: Alanine Aminotransferase 31 U/L (6-35); Albumin Level 4.0 g/dL (3.5-5.1); Alkaline Phosphatase 73 U/L (38-126); Anion Gap 6 mmol/L (4-12); Aspartate Amino Transferase 36 U/L (14-36); Bilirubin,Total 0.6 mg/dL (0.2-1.3); Blood Urea Nitrogen 10 mg/dL (7-17); Calcium 9.3 mg/dL (8.4-10.2); Carbon Dioxide 25 mmol/L (22-30); Chloride 109 mmol/L (98-107); Estimated CRCL calculation 85 ml/min; Estimated Glomerular Filt Rate > 60; Glucose 95 mg/dL (65-110); Potassium 4.0 mmol/L (3.4-5.0); Sodium 140 mmol/L (137-145); Total Protein 7.0 g/dL (6.3-8.2)
[2025-04-20] MEDS: LACTATED RINGERS 1,000 ML 999 ML IV CONT (09:59)
[2025-04-20 10:00] VITALS: BP 110/68; PULSE 62; RESP 16; O2SAT 100
[2025-04-20] MEDS: HYDROmorphone HCL INJ (*CRX) 2 MG/ML VIAL 0.5 MG IV PUSH (10:01)
[2025-04-20 11:34] LABS: Appearance Urine Other (Clear)
[2025-04-20 11:36] LABS: Add Urine Microscopic? YES
[2025-04-20 12:00] VITALS: BP 113/69; PULSE 60; RESP 16; O2SAT 100
[2025-04-20] MEDS: PHENAZOPYRIDINE HCL 100 MG TABLET PO (12:08)
[2025-04-20] MEDS: cefTRIAXone 1 GM in SODIUM CHLORIDE 0.9% IV 50 ML 100 ML IVPB (12:08)
== END 2025-04-20 13:05 | disposition home or self-care (01) ==
PROVIDERS: Emergency Provider Emergency Medicine
DX: O72.2 Delayed and secondary postpartum hemorrhage (principal); O90.89 Other complications of the puerperium, not elsewhere classified; R30.0 Dysuria; Z77.22 Contact with and (suspected) exposure to environmental tobacco smoke (acute) (chronic)
CPT/HCPCS: 36415; 76830; 76856; 80053; 81001; 83605; 85025; 85610; 85730; 86850; 86900; 86901; 87086; 96361; 96365; 96375; 99284; A9270; J0696; J1171; J7120

== ENCOUNTER 2025-04-24 00:47 | Day surgery (SDC) | payer OTHER, SELFPAY ==
[2025-04-23 13:54] VITALS: BMI 30.2
--- NOTE | 2025-04-23 14:02 | PC.NURSE ---
Report to the Outpatient Waiting Room, entrance under the green pavilion located off [facility], at time _0900_ on date _[id number]_. Planned Procedure Time: _1100_.? Time changes happen often and if your time is changed the preop area will call you the afternoon before. - You and your visitor will be asked to self-screen and do not enter if you have any COVID symptoms. Please call surgeon if you need to reschedule. - A mask is optional within the hospital at this time. Patients may have clear liquids (water, carbonated beverages, clear teas, apple juice) until 3 hours prior to surgery with a maximum of 20 ounces. - No food from midnight until time of surgery and no smoking, or chewing tobacco (or any form of nicotine). No chewing gum, candy or mints. Take only the following medications with a SIP of water on the morning of surgery: __Tranexemic acid DO NOT STOP ANY OF YOUR OTHER PRESCRIPTION MEDICATIONS PRIOR TO SURGERY EXCEPT THE FOLLOWING Hold all vitamins and supplements for 3 days per anesthesiologist. Medications to discontinue per physician Date to take last dose Please no make-up, nail haitian, hairspray, perfume, deodorant, or body powder the day of surgery.? No jewelry (including any body piercings) or valuables the day of surgery, leave them at home.? Please take a shower or bath the night before, or the morning of, surgery with an antibacterial soap.? Wear comfortable, loose fitting clothing.? - Jewelry must be removed prior to entering the operating room.? Rings and piercings that are not removed may be cut off. - The hospital will not accept responsibility for valuables.? - Please leave all valuables, including medications, at home the day of surgery. If you are going home after surgery, a licensed ambulette driver must drive you home.? - NO public transportation without another adult if you receive anesthesia. - We recommend that an adult stay with you for 24 hours following discharge. - We also recommend that you do not drive, make important decision, drink alcoholic beverages, or take any drugs that were not prescribed by your health care provider for at least 24 hours after your discharge time. Follow any additional instructions given to you from your surgeon. Telephone instructions given to __[place]__and asked if any additional questions and then verbalized understanding. Patient advised to call surgeon office or pre surgery nurse liaison [phone] if any additional questions.
--- OUTSIDE RECORDS SUMMARY | 2025-04-24 00:49 | XMS_ITS | Encounter Summary ---
Author Organization [facility] Address [address] [place] [address] Care Team Providers Care Porcelain Enamel Sprayer Name Role Phone Erica Laura MD Primary Care Provider Unavailable Sly Rasheed MD Primary Care Provider Encounter Details Date Type Department Care Team (Late st Contact Info) Description 07/24/2017 Abstract [place] [address] Erica Laura MD Social History Tobacco Use [...] on filedocumented in this encounter Care Teams Porcelain Enamel Sprayer Relationship Specialty Start Date End Date Erica Laura MD PCP - General 05/30/14 Sly Rasheed MD [address] [place] [address] PCP - General FAMILY PRACTICE 04/03/24 documented as of this encounter
--- OUTSIDE RECORDS SUMMARY | 2025-04-24 00:49 | XMS_ITS | Continuity of Care Document ---
Author Organization [facility] Address [address] [place] [address] Phone Care Team Providers Care Learning Coach Name Role Phone Jacobo Roberson MD Unavailable [...] OFFICE/OUTPAT IENT VISIT EST [facility] , [address] [facility] [address], [place], [address], [place] tel:[phone] [facility] Pain, joint, knee, right 6 Karol Centeno. [address], [place], [place], [address] . tel: [phone] OFFICE/OUTPAT IENT VISIT EST [facility] , [address], [place], [address], [place] [phone] [facility] TFCC (triangular fibrocartilage complex) tear May-2 9-201 5 Kutnik Aly. [address], [place], [place], [address] . tel: [phone] OFFICE/OUTPAT IENT VISIT EST [facility] , [address], [place], [address], [place] tel:[phone] [facility] TFCC (triangular fibrocartilage complex) tear Apr-2 2-201 5 Robertotvera Cervanteswn. [address], [place], [place], [address] . tel: [phone] OFFICE/OUTPAT IENT VISIT EST [facility] , [address] [facility] [address], [place], [address], [place] tel:[phone] [facility] Wrist pain, left Apr- 5-201 5 Kutnik Aly. [address], [place], [place], [address] . tel: [phone] [facility] , [address] [facility] [address], [place], [address], [place] tel:[phone] [facility] No Information Nov-2 6-201 5 Sanya Berum[address]. [address], [place], [place], [address] . tel: [phone] OFFICE/OUTPAT IENT VISIT EST [facility] , [address] [facility] [address], [place], [address], [place] tel:[phone] [facility] Wrist contusion Nov-1 8-201 5 Kutnik Aly. [address], [place], [place], [address] . tel: [phone] OFFICE/OUTPAT IENT VISIT NEW [facility] , [address], [place], [address], [place] tel:[phone] [facility] Wrist contusion Feb-2 0-201 5 Kutvera Cervanteswn. [address], [place], [place], [address] . tel: [phone] Referring Provider: Vance Broussard, [address], [place], [address] . tel:[phone] Family History Family Member Type Diagnosis Age At Onset Father Problem (finding) Alive and well Mother Problem (finding) Alive and well Payers Payer name Insurance type Covered democrat ID Torrey kwok(s) Blue Access PPO E2 [id number] Social History Type Description Quantity Date Captured [...]
--- OUTSIDE RECORDS SUMMARY | 2025-04-24 00:49 | XMS_ITS | Clinical Summary ---
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 file Not on file Obstetrics History Last Filed Vital Signs Vital Sign Reading Time Taken Comments Blood Pressure 110/68 10/19/2024 10:33 AM GRINDER OUTSIDE DIAMETER Pulse 77 10/19/2024 10:33 AM GRINDER OUTSIDE DIAMETER Temperature 36.7 C (98 F) 05/29/2024 7:54 AM CDT Respiratory Rate 16 04/12/2024 2:32 PM CDT Oxygen Saturation 98% 10/19/2024 10:33 AM GRINDER OUTSIDE DIAMETER Inhaled Oxygen Concentration - - Weight 75.1 kg (165 lb 8 oz) 10/19/2024 10:33 AM GRINDER OUTSIDE DIAMETER Height 157.5 cm (5' 2.01) 10/19/2024 10:[address] Body Mass Index 30.26 10/19/2024 10:33 AM GRINDER OUTSIDE DIAMETER Plan of Treatment Health Maintenance Due Date [...] to complete this topic Insurance [facility] CHOICE PLUS [facility] HMO/PPO Address: [address] [address] [place] [address] [facility] CHOICE PLUS [facility] HMO/PPO Address: [facility] [id number] [place] [address] Care Teams Fire Production Operator Relationship Specialty Start Date End Date Sly Rasheed MD [address] [facility] [address] [place] [address] PCP - General Family Practice 04/06/24
--- OUTSIDE RECORDS SUMMARY | 2025-04-24 00:49 | XMS_ITS | Continuity of Care Document ---
Author Organization [facility] Address [address] [facility] [address] [place] [address] Phone Care Team Providers Care Cotton Picker Operator Name Role Phone Boyd TARANGO MD, Kavin Unavailable Unavailable Advance Directives Directive Yes / No Effective Date File Name No Information Encounters Encounter Description Practice Location Reason(s) For Visit Diagnoses Date Provider Providers Copied on Encounter [facility] [employer] [facility], [address] [facility], [place], [place], [address], [place] tel:[phone] [facility] No Information Boyd Vale. [address] [facility] [address], [place], [place], [address] , [place]. tel:[phone] Family History Family Member Type Diagnosis Age At Onset No Information Payers Payer name Insurance type Covered libertarian ID Authoriza tion(s) No Information Social History [...]
--- OUTSIDE RECORDS SUMMARY | 2025-04-24 00:49 | XMS_ITS | Clinical Summary ---
Author Organization [facility] Address [address] [place] [address] Care Team Providers Care Social Media Marketing Specialist Name Role Phone Sly Rasheed MD Primary [...] 3:53 PM CDT Height 157.5 cm (5' 2) 04/03/2024 3:53 PM CDT Body Mass Index 25.61 04/03/2024 3:53 PM CDT Plan of Treatment Health Maintenance Due Date Last Done Comments Cervical Cancer Screening Pap Smear (Age 30 to 64) Every 3 Years 1995 Annual Physical 1998 COVID-19 Vaccine ( season) 2024 09/17/2021, 12/30/2020 Cervical Cancer Screening Pap with HPV Testing (Age 30 to 64) Every 5 Years 2025 Cervical Cancer Screening with HPV 2025 DTaP, Tdap and Td Vaccines (8 - [...] VE NON-REACTI VE 04/03/2024 8:17 PM CDT [facility] HEP B CORE IGM NON-REACTI VE NON-REACTI VE 04/03/2024 11:53 PM CDT [facility] HAV IGM NON-REACTI VE NON-REACTI VE 04/03/2024 11:53 PM CDT [facility] HEPATITIS C AB NON-REACTI VE NON-REACTI VE 04/03/2024 11:53 PM CDT [facility] 04/03/2024 6:54 PM CDT us Rachana Diaz MD LABORATORY Final Resul t [facility] [address] [place] [address], from Last 3 Months or Most Recently Relevant to Health Maintenance Insurance [facility] [place] [address] Care Teams Social Media Marketing Specialist Relationship Specialty Start Date End Date Sly Rasheed MD [address] [place] [address] PCP - General FAMILY PRACTICE 04/03/24
--- OUTSIDE RECORDS SUMMARY | 2025-04-24 00:49 | XMS_ITS | Referral Summary ---
Author Organization 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 on file Not on file Last Filed Vital Signs Vital Sign Reading Time Taken Comments Blood Pressure 110/68 10/19/2024 10:33 AM ATHLETIC COACH Pulse 77 10/19/2024 10:33 AM ATHLETIC COACH Temperature 36.7 C (98 F) 05/29/2024 7:54 AM CDT Respiratory Rate 16 04/12/2024 2:32 PM CDT Oxygen Saturation 98% 10/19/2024 10:33 AM ATHLETIC COACH Inhaled Oxygen Concentration - - Weight 75.1 kg (165 lb 8 oz) 10/19/2024 10:33 AM ATHLETIC COACH Height 157.5 cm (5' 2.01) 10/19/2024 10:[address] Body Mass Index 30.26 10/19/2024 10:33 AM ATHLETIC COACH Plan of Treatment Not on file Insurance [facility] CHOICE PLUS Care Teams Vice President Payer Relationship Specialty Start Date End Date Sly Rasheed MD [address] [place] [address] [place] [address] PCP - General Family Practice 04/06/24
--- OUTSIDE RECORDS SUMMARY | 2025-04-24 00:49 | XMS_ITS | Encounter Summary ---
Author Organization [facility] Address [address] [facility] [place] [address] Care Team Providers Care Stage Rigger Name Role Phone Beata Orta MD Primary Care Provider [phone] Encounter Details Date Type Department Care Team (Late st Contact Info) Description 08/19/2021 Lab Requisition [facility] [address] [place] [phone] Jeanne Roque MD Social History Tobacco Use Types Packs/Day Years Used Date Smoking Tobacco: Never Assessed Comments Unknown Sex and Gender Information Value Date Recorded Sex Assigned at Not on file Legal Sex Female 3:35 PM INDUSTRIAL MANUFACTURING TECHNICIAN Gender Identity Not on file Sexual Orientation Not on file documented as of this encounter Plan of Treatment Not on file documented as of this encounter Procedures Procedure Name Priority Date/Time Associated Diagnosis Comments HCG BETA BLOOD QUANTITATIVE STAT 08/19/2021 10:46 AM INDUSTRIAL MANUFACTURING TECHNICIAN documented in this encounter Results * HCG BETA BLOOD QUANTITATIVE (08/19/2021 10:46 AM INDUSTRIAL MANUFACTURING TECHNICIAN) hCG Quantitative <1.20 mIU/mL 08/19/20 11:25 AM INDUSTRIAL MANUFACTURING TECHNICIAN [facility] Blood BLOOD SPECIMEN / Unknown Venipuncture / Unknown 08/19/2021 10:46 AM INDUSTRIAL MANUFACTURING TECHNICIAN 08/19/2021 10:46 AM INDUSTRIAL MANUFACTURING TECHNICIAN Narrative [facility] - 08/19/2021 11:25 AM INDUSTRIAL MANUFACTURING TECHNICIAN hCG Reference Range, mIU/mL: Males 0-2.0 Non [...] MD LAB - CHEMISTRY ORDERABLES Final Result [facility] [address] [id number] documented in this encounter Visit Diagnoses Not on filedocumented in this encounter Care Teams Stage Rigger Relationship Specialty Start Date End Date Beata Orta MD [address] [place] [address] PCP - General Family Medicine 07/02/21 documented as of this encounter
--- OUTSIDE RECORDS SUMMARY | 2025-04-24 00:49 | XMS_ITS | Clinical Summary ---
Author Organization [facility] Address [address] [place] [address] Care Team Providers Care Carrot Grader Inspector Name Role Phone Beata Orta MD Primary Care Provider [phone] Source Comments [facility],non-[facility] Affiliates and Associated Physician Practices is amultiple site organization consisting of ambulatory clinics and hospital sitesin [place], [place], [place] and [place]. This disclosure is being madepursuant to the Care Everywhere program and may not contain all information available regarding this patient. Last updated 18.[facility] [employer] Allergies No known active allergies Social History Tobacco Use Types Packs/Day Years Used Date Smoking Tobacco: Never Assessed Comments Unknown Sex and Gender Information Value Date Recorded Sex Assigned at Not on file Legal Sex Female 3:35 PM LIBRARY MANAGER Gender Identity Not on file Sexual Orientation [...] patient's age to complete this topic Insurance [facility] SELF PAY NO INSURANCE Member Subscriber Plan / Payer (Ef fective for All Dates) Name:Natalia Weiss R Member ID:Not on file Relation to Subscriber:Not on file Name:NATALIA BONILLA Subscriber ID:Not on file (Home) Address: [address] [place] [address] Payer ID:Not on file Group ID:Not on file Type:Self Pay Address: [facility] * Guarantor: NATALIA WEISS Account Type Relation to Patient Date of Phone Billing Address Personal/Family Spouse Care Teams Carrot Grader Inspector Relationship Specialty Start Date End Date Beata Orta MD [address] [place] [id number] PCP - General Family Medicine 07/02/21
--- NOTE | 2025-04-24 07:00 | PM.IMHP ---
H&P: HPI History of Present Illness Date/Time: 04/24/25 07:00 Chief Complaint: bleeding Narrative: This is a pleasant 30-year-old 2 para 2 had a section about 6 weeks ago complaining of vaginal bleeding this bleeding has been on and off. She was treated with TXA improved continued to bleed. She has seen in the ER last Wednesday and her endometrial lining was thin with a normal hemoglobin so decision was made for watchful waiting. She is now presently bleeding again and will undergo hysteroscopy dilatation curettage risks and benefits reviewed in full [facility] Past Medical History Medical History Anxiety Migraine headache without aura Overweight (BMI 25.0-29.9) Eczema Depression Surgical History Surgical History Previous section History of tonsillectomy 08/10/23 Family History Family History Grandparent Depression Sibling Pulmonary embolism Father Obesity Grandparent Diabetes mellitus Social History Social History Social History: Lives at home with her significant other and children. Surrogate decision maker: Chauncey Clayton boyfrnirmal. Code Status: Full Code. 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 There is no relevant family history pertinent to the presenting complaint Meds Home Medications and Allergies Home Medications ?Medication ?Instructions ?Recorded ?Confirmed ?Type sumatriptan succinate 100 mg tablet See Rx Instructions PO .COMPLEX #9 04/05/24 04/23/25 Rx tabs cephalexin 500 mg capsule 500 mg PO Q8H 7 days #21 caps 04/20/25 04/23/25 Rx tranexamic acid 650 mg tablet 1,300 mg PO TID 04/23/25 04/23/25 History Allergies Allergy/AdvReac Type Severity Reaction Status Date / Time No Known Allergies Allergy Verified 04/23/25 13:51 Exam Const: General: cooperative, healthy appearing and comfortable Nutritional Appearance: average body habitus Orientation/consciousness: oriented to person, oriented to place and oriented to time HENMT: Head: normal to inspection Resp: Effort & Inspection: normal respiratory effort Cardio: Rate: regular rate Rhythm: regular rhythm Heart sounds: S1 normal heart sound present and S2 normal heart sound present GI: Inspection: normal to inspection : External Female Exam: normal external appearance Speculum Exam - Vagina: normal appearance of the vagina and vaginal bleeding Speculum Exam - Cervix: normal appearance of the cervix Bimanual exam- vagina & uterus: soft Bimanual Exam- Adnexa, other: normal adnexae Assessment and Plan Assessment and plan (1) Excessive bleeding: Code(s): R58 - Hemorrhage, not elsewhere classified Status: Acute Plan Proceed with hysteroscopy/dilatation and curettage
[2025-04-24 09:50] VITALS: BP 114/54; PULSE 60; RESP 16; TEMP 35.8; O2SAT 100
[2025-04-24] MEDS: ACETAMINOPHEN 500 MG TABLET 1000 MG PO (10:02)
--- NOTE | 2025-04-24 11:09 | P.PNAN_ITS ---
Anes - Initial Pre Proc Eval Procedure: Operation Date: 04/24/25 11:00 Proposed Procedures p Hysteroscopy Dilation and Curettage - Kavin Cespedes MD Date/Time: 04/24/25 11:09 Surgeon: Kavin Cespedes MD Pre Op Diagnosis: heavy vaginal bleeding Patient Data Age: 30 Gender: F Height: 1.57 m Weight: 75.3 kg Last Vital Signs Temp 35.8 C L 04/24/25 09:50 Pulse 60 04/24/25 09:50 Resp 16 04/24/25 09:50 BP 114/54 L 04/24/25 09:50 Pulse Ox 100 04/24/25 09:50 O2 Del Method Room Air 04/24/25 09:50 Allergies Allergy/AdvReac Type Severity Reaction Status Date / Time No Known Allergies Allergy Verified 04/23/25 13:51 Home Medications ?Medication ?Instructions ?Recorded ?Confirmed ?Type sumatriptan succinate 100 mg tablet See Rx Instructions PO .COMPLEX #9 04/05/24 04/24/25 Rx tabs tranexamic acid 650 mg tablet 1,300 mg PO TID 04/23/25 04/24/25 History Patient hx anesthesia problems: none Family hx anesthesia problems: none Results Review: All pre-operative results and documents have been reviewed as part of the pre- operative evaluation. [facility] Past Medical History Medical History Anxiety Migraine headache without aura Overweight (BMI 25.0-29.9) Eczema Depression Surgical History Surgical History Previous section History of tonsillectomy 08/10/23 Family History Family History Grandparent Depression Sibling Pulmonary embolism Father Obesity Grandparent Diabetes mellitus Social History Social History Social History: Lives at home with her significant other and children. Surrogate decision maker: Chauncey Clayton boyfriend. Code Status: Full Code. 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 Informed Consent: The patient's anesthetic plan and its attendant risks and benefits were discussed with the patient/family/POA. Questions were solicited and answers provided to the satisfaction of the patient/family/POA.
--- NOTE | 2025-04-24 11:34 | WPDHPUPDATE1 ---
History and Physical Update Update Date/Time: 04/24/25 11:34 History and Physical has been reviewed, including an updated exam of the patient. There are NO changes in the patient's condition. Risks, benefits, and alternatives have been discussed and questions answered. Patient agrees to proceed with procedure.
[2025-04-24] MEDS: LIDOCAINE 1% LOCAL INJ 10 ML VIAL INFILTRATE (11:46)
--- NOTE | 2025-04-24 11:54 | S_PTH ---
PATIENT: Natalia Weiss LOC: [facility] U#:[id number] AGE/SX: 30/F ROOM: RE04/24/[address]: Kavin Cespedes MD : 1995 BED: DIS: 04/24/2025 SPEC #: [id number] RECD: 04/24/25 13:18 STATUS: QUETA REQ #: [id number] MARIEL: 04/24/25 11:[address]: Kavin Deluca DEPT: [facility] Surgical RECD BY: Kelsey Richey ENTERED: 04/24/25 13:18 SP TYPE: Surgical OTHR DR: VP TALENT MANAGEMENT PHYSICIAN Tissues: A - Endometrial Curettings Procedures: Hematoxylin and Eosin Stain Gross and Microscopic Level 4
--- NOTE | 2025-04-24 12:03 | W.PM.PROC2 ---
Procedure Note - Detailed Date of Procedure 04/24/25 Pre-op Diagnosis heavy vaginal bleeding Post-op Diagnosis Same Procedure Performed Hysteroscopy/dilatation and curettage Surgeon Kavin Cespedes MD Anesthesia MAC and Local Indications 30-year-old female 2 para 2 6 weeks out from repeat section with heavy bleeding and was refractory to medical therapy Findings Benign-appearing endometrium. Each fallopian tube os could be seen. Description of Procedure The patient was prepped and draped in the normal sterile fashion placed in dorsal lithotomy position. Under excellent IV sedation weighted speculum placed in posterior fornix vagina. Anterior lip of cervix grasped with a single-tooth tenaculum. 2.5cc 1% xylocaine anesthesia she remained at 2, 4, 8, 10:00 a.m. of the cervix. Uterus sounded to 8cm. Serial dilatation fragmented dilators performed followed by passage of the 5mm visualizing hysteroscope using normal saline as visualizing medium. Thick irregular endometrial tissue was seen each fallopian tube os could be seen but no evidence of polyp or retained placenta was noted. The uterus was then scraped over the entire 360? with a small instrument. Blood loss was estimated at5cc the instruments withdrawn the patient went recovery in satisfactory condition. All sponge, needle, instrument counts were correct. There were no complications Estimated Blood Loss 5 Drains No Packing No Pathology Yes Complications No immediate complications Condition Stable Disposition PACU
[2025-04-24 12:04] VITALS: BP 103/56; PULSE 75; RESP 16; O2SAT 98
[2025-04-24] MEDS: LACTATED RINGERS 1,000 ML 30 ML IV CONT (12:04)
[2025-04-24 12:30] VITALS: BP 107/58; PULSE 60; RESP 16
[2025-04-24 13:00] VITALS: BP 101/57; PULSE 50; RESP 16; O2SAT 100
[2025-04-24 13:15] VITALS: BP 104/52; PULSE 73; RESP 18
[2025-04-24 13:53] LABS: BEDSIDEPREGUCG Negative (Negative)
== END 2025-04-24 13:20 | disposition home or self-care (01) ==
PROVIDERS: Visit Provider Obstetrics & Gynecology
PROC: 0U5B8ZZ Destruction of Endometrium, Via Natural or Artificial Opening Endoscopic (ICD-10-PCS; CPT 58563; principal; 2025-04-24 11:00)
DX: R58 Hemorrhage, not elsewhere classified (principal); F41.9 Anxiety disorder, unspecified; F32.A Depression, unspecified; L30.9 Dermatitis, unspecified; Z98.890 Other specified postprocedural states
CPT/HCPCS: 58558; 88305; A9270; J2003; J2250; J2704; J3010; J7120

== ENCOUNTER 2025-08-29 12:11 | Emergency (ER) | payer OTHER, SELFPAY ==
--- NOTE | ~2025-08-29 | XR_ITS ---
EXAMINATION: XR chest 2V, 08/29/2025 15:20 WIRE BORDER ASSEMBLER HISTORY: near syncope COMPARISON: No comparisons available. Technique: 2 views obtained. Findings: The lungs are clear, no effusion. No pneumothorax. Heart is normal size. Mediastinal and hilar contours are within normal limits. Bony thorax no acute abnormality. Impression: No acute cardiopulmonary abnormality. Reviewed, dictated and finalized at location P. BORDER ASSEMBLER Impression: No acute cardiopulmonary abnormality.
[2025-08-29 12:19] VITALS: BP 120/70; PULSE 64; RESP 18; TEMP 36.2; O2SAT 100
--- NOTE | 2025-08-29 13:52 | ECG_ITS ---
Test Date: 2025-08-29 14:46:49 Measurements Intervals [place] Rate: 47 P: 42 [place]: 140 QRS: 59 QRSD: 94 T: 45 QT: 452 QTc: 402 Interpretive Statements SINUS BRADYCARDIA WITH SINUS ARRHYTHMIA INCOMPLETE RIGHT BUNDLE BRANCH BLOCK BORDERLINE T WAVE ABNORMALITY- ANTERIOR LEADS MINIMAL Q WAVES- ANTEROLAT/INF LEADS BASELINE ARTIFACT- V1-V6 ABNORMAL ECG Compared to ECG 12/06/2024 20:00:27 HEART RATE HAS DECREASED Electronically Signed On 08-29-2025 14:54:57 STONE DRESSER by Dipesh Cobos D.O.
[2025-08-29] MEDS: ACETAMINOPHEN 500 MG TABLET 1000 MG PO (15:33)
[2025-08-29] MEDS: SODIUM CHLORIDE 0.9% IV 1,000 ML 999 ML IV CONT (15:33)
[2025-08-29 15:43] LABS: Hematocrit 44.7 % (37.0-47.0); Hemoglobin 14.3 g/dL (12.0-15.0); Immature Granulocyte Percent A 0.1 % (0-0.5); Lymphocytes Absolute Auto 2.79 K/mm3 (0.9-3.2); Mean Corpuscular HGB Conc 32.0 g/dl (32-36); Mean Corpuscular Hemoglobin 26.9 pg (26-34); Mean Corpuscular Volume 84.2 fl (80-100); Nucleated Red Blood Cells Absolute Auto 0.000 K/mm3 (0.0-0.012); Nucleated Red Blood Cells Perc 0.0 % (0.0-0.2); Platelet Count Result 254 k/mm3 (150-375); Red Blood Count 5.31 M/mm3 (4.2-5.4); White Blood Count 6.7 K/mm3 (4.5-10.0)
--- NOTE | 2025-08-29 15:45 | ED.GENADULT ---
HPI - General Adult General Chief complaint: Syncope Stated complaint: syncope, struck head Time Seen by Provider: 08/29/25 14:46 History of Present Illness HPI narrative: Patient is a 30-year-old female who presents ER with an episode of near-syncope. She was sitting at her desk when she felt like she was lightheaded and things went dark and then she struck her head on the desk and immediately was able sit back up. She remembers striking her head. No loss of urine. She did eat a breakfast sandwich today. This occurred about 10:30 a.m.. This has happened to her in the past when she is dealt with a possible rheumatologic issue. She had a recent recurrence last week where she had some bumps on her tongue. She reports she has a chronically low resting heart rate in the 50s. No fevers or chills. No recent injury. She is not having chest pain or dyspnea when this occurred. No abdominal discomfort. Related Data Home Medications ?Medication ?Instructions ?Recorded ?Confirmed ?Last Taken ?Type tranexamic acid 650 mg tablet 1,300 mg PO TID 04/23/25 04/24/25 04/23/25 History Allergies Allergy/AdvReac Type Severity Reaction Status Date / Time No Known Allergies Allergy Verified 08/29/25 12:23 Review of Systems Review of Systems: All systems reviewed & are unremarkable except as noted in HPI and below Constitutional: Constitutional: Reports no additional constitutional complaints Cardiovascular: Cardiovascular: Reports no additional cardiovascular complaints Respiratory: Respiratory: Reports no additional respiratory complaints Gastrointestinal: Gastrointestinal: Reports no additional gastrointestinal complaints [facility] Past Medical History Medical History Anxiety Migraine headache without aura Overweight (BMI 25.0-29.9) Eczema Depression Surgical History Surgical History Previous section History of tonsillectomy 08/10/23 Family History Family History Grandparent Depression Sibling Pulmonary embolism Father Obesity Grandparent Diabetes mellitus Social History Social History Social History: Lives at home with her significant other and children. Surrogate decision maker: Chauncey Rileylledge, boyfriend. Code Status: Full Code. 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 HEAD: Normocephalic, atraumatic. ENT: Mucous membranes moist. CHEST: Clear to auscultation. No respiratory distress. HEART: Bradycardic and regular. Normal peripheral pulses. ABDOMEN: Soft, nontender, nondistended. EXTREMITIES: Normal range of motion. No edema. SKIN: Warm, dry, no rash. NEURO: Alert and oriented x3. PSYCH: Normal mood and affect. Course Course Emergency Course: Patient resting comfortably. Informed of results. No ectopy on the monitor, heart rate has remained in the 50s and 60s. Only had a brief time in the 40s at which time she was not symptomatic. Appropriate for discharge home and follow-up with PCP. Vital Signs Vital signs: Vital Signs Temperature 97.1 F L 08/29/25 12:19 Pulse Rate 64 08/29/25 12:19 Respiratory Rate 18 08/29/25 12:19 Blood Pressure 120/70 08/29/25 12:19 Pulse Oximetry 100 08/29/25 12:19 Oxygen Delivery Room Air 08/29/25 12:19 Temperature 97.1 F L 08/29/25 12:19 Pulse Rate 60 08/29/25 18:15 Respiratory Rate 18 08/29/25 18:15 Blood Pressure 124/76 08/29/25 18:15 Pulse Oximetry 99 08/29/25 18:15 Oxygen Delivery Room Air 08/29/25 12:19 MDM Differential Diagnosis Differential Diagnosis: Arrhythmia, seizure, dehydration, hypoglycemia. Lab Data MDM Lab Attestation statement: I personally reviewed the patient's lab results. 08/29/25 15:30 08/29/25 15:30 Labs: Lab Results 08/29/25 08/29/25 08/29/25 Range/Units 15:29 15:30 16:33 WBC 6.7 (4.5-10.0) K/mm3 RBC 5.31 (4.2-5.4) M/mm3 Hgb 14.3 D (12.0-15.0) g/dL Hct 44.7 (37.0-47.0) % MCV 84.2 (80-100) fl MCH 26.9 (26-34) pg MCHC 32.0 (32-36) g/dl RDW 15.0 H (11.5-14.5) % Plt Count 254 (150-375) k/mm3 MPV 11.4 H (7.4-10.4) fl Immature Gran % (Auto) 0.1 (0-0.5) % Neut % (Auto) 49.8 (45.5-73.1) % Lymph % (Auto) 41.8 (18.3-44.2) % Granite % (Auto) 6.3 (2.6-8.5) % Eos % (Auto) 1.3 (0-4.4) % Baso % (Auto) 0.7 (0.2-1.2) % Lymph # (Auto) 2.79 (0.9-3.2) K/mm3 Granite # (Auto) 0.4 (0.1-0.6) K/mm3 Eos # (Auto) 0.1 (0-0.3) K/mm3 Baso # (Auto) 0.1 (0.0-0.1) K/mm3 Abs Immat Gran (auto) 0.01 (0.00-0.031) K/mm3 Absolute Neuts (auto) 3.3 (1.3-6.7) K/mm3 Absolute Nucleated RBC 0.000 (0.0-0.012) K/mm3 Nucleated RBC % 0.0 (0.0-0.2) % PT 12.5 (11.1-14.7) Seconds INR 0.9 APTT 29.2 (22.3-36.8) Seconds Sodium 140 (137-145) mmol/L Potassium 3.7 (3.4-5.0) mmol/L Chloride 105 (98-107) mmol/L Carbon Dioxide 24 (22-30) mmol/L Anion Gap 11 (4-12) mmol/L BUN 12 (7-17) mg/dL Creatinine 0.80 (0.7-1.0) mg/dL Estim Creat Clear Calc 82 ml/min Estimated GFR > 60 (59 - ) Glucose 85 (65-110) mg/dL POC Capillary Glucose 64 L (65-105) mg/dl Hemoglobin A1c 5.2 (<5.7) % Calcium 10.2 (8.4-10.2) mg/dL Total Bilirubin 1.0 (0.2-1.3) mg/dL AST 31 (14-36) U/L ALT 27 (6-35) U/L Alkaline Phosphatase 55 (38-126) U/L Troponin I < 0.012 (0.000-0.034) ng/mL Total Protein 9.8 H (6.3-8.2) g/dL Albumin 5.5 H (3.5-5.1) g/dL POC Urine HCG, Qual (Negative) 08/29/25 Range/Units 16:49 WBC (4.5-10.0) K/mm3 RBC (4.2-5.4) M/mm3 Hgb (12.0-15.0) g/dL Hct (37.0-47.0) % MCV (80-100) fl MCH (26-34) pg MCHC (32-36) g/dl RDW (11.5-14.5) % Plt Count (150-375) k/mm3 MPV (7.4-10.4) fl Immature Gran % (Auto) (0-0.5) % Neut % (Auto) (45.5-73.1) % Lymph % (Auto) (18.3-44.2) % Granite % (Auto) (2.6-8.5) % Eos % (Auto) (0-4.4) % Baso % (Auto) (0.2-1.2) % Lymph # (Auto) (0.9-3.2) K/mm3 Granite # (Auto) (0.1-0.6) K/mm3 Eos # (Auto) (0-0.3) K/mm3 Baso # (Auto) (0.0-0.1) K/mm3 Abs Immat Gran (auto) (0.00-0.031) K/mm3 Absolute Neuts (auto) (1.3-6.7) K/mm3 Absolute Nucleated RBC (0.0-0.012) K/mm3 Nucleated RBC % (0.0-0.2) % PT (11.1-14.7) Seconds INR APTT (22.3-36.8) Seconds Sodium (137-145) mmol/L Potassium (3.4-5.0) mmol/L Chloride (98-107) mmol/L Carbon Dioxide (22-30) mmol/L Anion Gap (4-12) mmol/L BUN (7-17) mg/dL Creatinine (0.7-1.0) mg/dL Estim Creat Clear Calc ml/min Estimated GFR (59 - ) Glucose (65-110) mg/dL POC Capillary Glucose (65-105) mg/dl Hemoglobin A1c (<5.7) % Calcium (8.4-10.2) mg/dL Total Bilirubin (0.2-1.3) mg/dL AST (14-36) U/L ALT (6-35) U/L Alkaline Phosphatase (38-126) U/L Troponin I (0.000-0.034) ng/mL Total Protein (6.3-8.2) g/dL Albumin (3.5-5.1) g/dL POC Urine HCG, Qual Negative (Negative) Imaging Data Attestation: I personally reviewed and interpreted this imaging study as follows: Radiologist's impression: ITS Impressions Chest X-Ray 08/29/25 15:27 Impression: No acute cardiopulmonary abnormality. ECG Data EKG #1: Attestation: I personally reviewed and interpreted this ECG as follows: ECG completion date: 08/29/25 ECG completion time: 14:46 bradycardia (47), sinus rhythm, normal QRS, RBBB (incomplete) and normal QT Discharge Plan Discharge Clinical Impression: Near syncope Patient Disposition: Home Condition: Stable Instructions: Antibiotic Form Additional Instructions: Follow-up with your primary care physician. You may need a Holter monitor. Return the ER if you develop chest pain, you have loss of consciousness, or you have additional concerns. Patient Language: Vietnamese Prescriptions: No Action sumatriptan succinate 100 mg tablet See Rx Instructions PO .COMPLEX Qty: 9 0RF Rx Instructions: take 1 tab at onset of headache; if no relief, may repeat 1 tab after at least 2 hrs; max = 2 tabs/24 hrs PO tranexamic acid 650 mg tablet 1,300 mg PO TID Follow-up/Referrals: PHYSICIAN NOT ON STAFF,NONSTAFF [Primary Care Provider]
[2025-08-29 15:54] LABS: Alanine Aminotransferase 27 U/L (6-35); Albumin Level 5.5 g/dL (3.5-5.1); Alkaline Phosphatase 55 U/L (38-126); Anion Gap 11 mmol/L (4-12); Aspartate Amino Transferase 31 U/L (14-36); Bilirubin,Total 1.0 mg/dL (0.2-1.3); Blood Urea Nitrogen 12 mg/dL (7-17); Calcium 10.2 mg/dL (8.4-10.2); Carbon Dioxide 24 mmol/L (22-30); Chloride 105 mmol/L (98-107); Estimated CRCL calculation 82 ml/min; Estimated Glomerular Filt Rate > 60; Glucose 85 mg/dL (65-110); Potassium 3.7 mmol/L (3.4-5.0); Sodium 140 mmol/L (137-145); Total Protein 9.8 g/dL (6.3-8.2)
[2025-08-29 16:00] LABS: INR 0.9; Prothrombin Time 12.5 Seconds (11.1-14.7)
[2025-08-29 16:01] LABS: Partial Thromboplastin Time 29.2 Seconds (22.3-36.8)
[2025-08-29 16:06] LABS: Troponin I < 0.012 ng/mL (0.000-0.034)
[2025-08-29 16:24] VITALS: BP 117/76; PULSE 55
[2025-08-29 16:29] VITALS: BP 119/74; BP 124/64; PULSE 69; PULSE 80
[2025-08-29 16:58] LABS: BEDSIDEPREGUCG Negative (Negative)
[2025-08-29 17:15] VITALS: BP 110/54; PULSE 59; RESP 16; O2SAT 99
[2025-08-29 17:42] LABS: Hemoglobin A1C 5.2 % (<5.7)
[2025-08-29 18:15] VITALS: BP 124/76; PULSE 60; RESP 18; O2SAT 99
--- OUTSIDE RECORDS SUMMARY | 2025-08-29 20:44 | XMS_ITS | Clinical Summary ---
Author Organization [facility] Address [address] [place] [address] Care Team Providers Care Shift Supervisor Film Processing Name Role Phone Beata Orta MD Primary Care Provider [phone] Source Comments [facility],non-[facility] Affiliates and Associated Physician Practices is amultiple site organization consisting of ambulatory clinics and hospital sitesin [place], [place], [place] and [place]. This disclosure is being madepursuant to the Care Everywhere program and may not contain all information available regarding this patient. 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 Gender Identity Not on file Sexual Orientation Not on file Plan of Treatment Health Maintenance Due Date Last Done Comments HIV SCREENING 2010 HEPATITIS C SCREENING 03/12/2013 DTAP/TDAP/TD VACCINES (1 - Tdap) 2014 HEPATITIS B VACCINE (1 of 3 - 19+ 3-dose series) 2014 PAP SMEAR 2016 HPV VACCINE (1 - 3-dose SCDM series) 2022 DEPRESSION SCREENING 09/20/2024 COVID-19 VACCINE (2 - 2024-2 6 season) 2025 12/30/2020 INFLUENZA VACCINE (#1) 2025 ZOSTER VACCINE (1 of 2) 2045 HIB VACCINE Aged Out No longer eligi [...] patient's age to complete this topic Insurance [facility] SELF PAY NO INSURANCE Member Subscriber Plan / Payer (Ef fective for All Dates) Name:Natalia Weiss R Member ID:Not on file Relation to Subscriber:Not on file Name:NATALIA BONILLA Subscriber ID:Not on file (Home) Address: [address] [place] [address] Payer ID:Not on file Group ID:Not on file Type:Self Pay Address: [facility] * Guarantor: NATALIA WEISS Account Type Relation to Patient Date of Phone Billing Address Personal/Family Spouse Care Teams Shift Supervisor Film Processing Relationship Specialty Start Date End Date Beata Orta MD [address] [place] [id number] PCP - General Family Medicine 07/02/21
--- OUTSIDE RECORDS SUMMARY | 2025-08-29 20:44 | XMS_ITS | Clinical Summary ---
Author Organization [facility] [address] [place] [address] Care Team Providers Care Car Audio Installer Name Role Phone Sly Rasheed MD Primary Care Provider Allergies No known active allergies Medications SUMAtriptan (IMITREX) 100 mg tabletIndications: Migraine Take 1 tablet (100 mg total) by mouth once as needed for migraine Active ALPRAZolam (XANAX) 0.25 mg tablet Take 1 tablet (0.25 mg total) by mouth daily as needed 4 Active ondansetron ODT (ZOFRAN-ODT) 4 mg disintegrating tablet Take 1 tablet (4 mg total) by mouth every 8 (eight) hours as needed for nausea or vomiting 20 tablet 4 Active butalbital-acetami nophen-caffeine (ESGIC) 50-325-40 mg per tablet Take 1 tablet by mouth every 6 (six) hours as needed 5 Active methylPREDNISolone (Medrol, Daniel,) 4 mg Dosepack follow package directions 1 packet 5 Active Active Problems No known active problems Encounters Date Type Department Care Team Description 08/26/2025 Orders Only [facility] Rheumatology at [facility] [address], [place] [address] Cathy Delaney MD 06/19/2025 Results Follow-Up [facility] Rheumatology at [facility] [address] [place] [address] Cathy Delaney MD SIGN LANGUAGE TEACHER abs, Anti-double stranded DNA abs, Protein, urine, random, Additional followed-up results: 18 from Last 3 Months Immunizations Immunization Administration Dates Next Due Influenza, Unspecified 10/19/2024(Deferred: Judy ent decision) PPD TEST 10/12/2022 Tdap 07/02/2022 Surgical History Surgery Date Site/Laterality Comments WRIST SURGERY 06/20/2016 - 07/20/2016 wrist arthroscopy SECTION 03/12/2025 Family History Medical History Relation Name Comments [...] often do you have a drink containing alc ohol? Monthly or less 05/03/2025 Q2: How many drinks containi ng alcohol do you have on a typical day when you are drinking? 1 or 2 05/03/2025 Q3: How often do you have si x or more drinks on one occasion? Never 05/03/2025 Personal Safety Answer Date Recorded Have you ever been in or are you currently in a harmful physical or emotional relationship or is someone making you feel afraid or unsafe? 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 on file Not on file Last Filed Vital Signs Vital Sign Reading Time Taken Comments Blood Pressure 118/60 05/03/2025 12:59 PM CDT Pulse 79 05/03/2025 12:59 PM CDT Temperature 36.6 C (97.9 F) 05/03/2025 12:59 PM CDT Respiratory Rate 20 05/03/2025 12:59 PM CDT Oxygen Saturation 97% 05/03/2025 12:59 PM CDT Inhaled Oxygen Concentration - - Weight 75.1 kg (165 lb 9.6 oz) 05/03/2025 12:59 PM CDT Height 157.5 cm (5' 2) 05/03/2025 12:59 PM CDT Body Mass Index 30.29 05/03/2025 12:59 PM CDT Plan of Treatment Health Maintenance Due Date Last Done Comments Cervical Cancer Screening 1995 Depression Screening 1995 Hepatitis C Screening 1995 Varicella Vaccines (1 of 2 - 13+ 2-dose series) 2008 Hepatitis B Screening 2013 Regular Well Visit/Exam 18-64 2013 HPV Vaccines (1 - 3-dose SCD M series) 2022 Covid-19 Vaccine (3 - 2024-2 6 season) 2025 09/17/2021, 12/30/2020 Influenza Vaccine (#1) 2025 DTaP/Tdap/Td Vaccine (2 - Td or Tdap) 07/02/2032 07/02/2022 Pneumococcal vaccine <65 Aged Out No longer eligible based on patient's age to complete this topic Insurance [facility] [employer] Care Teams Car Audio Installer Relationship Specialty Start Date End Date Sly Rasheed MD [facility] [place] [address] PCP - General Family Practice 04/06/24
--- OUTSIDE RECORDS SUMMARY | 2025-08-29 20:44 | XMS_ITS | Encounter Summary ---
Author Organization [facility] Address [address] [place] [address] Care Team Providers Care Neurological Surgery Teacher Name Role Phone Beata Orta MD Primary Care Provider Encounter Details Date Type Department Care Team (Late st Contact Info) Description 08/19/2021 Lab Requisition [facility] [address] [place] [id number] Jeanne Roque MD Social History Tobacco Use Types Packs/Day Years Used Date Smoking Tobacco: Never Assessed Comments Unknown Sex and Gender Information Value Date Recorded Sex Assigned at Not on file Legal Sex Female 3:35 PM VISITOR SERVICE ASSISTANT Gender Identity Not on file Sexual Orientation Not on file documented as of this encounter Plan of Treatment Not on file documented as of this encounter Procedures Procedure Name Priority Date/Time Associated Diagnosis Comments HCG BETA BLOOD QUANTITATIVE STAT 08/19/2021 10:46 AM VISITOR SERVICE ASSISTANT documented in this encounter Results * HCG BETA BLOOD QUANTITATIVE (08/19/2021 10:46 AM VISITOR SERVICE ASSISTANT) hCG Quantitative <1.20 mIU/mL 08/19/20 11:25 AM VISITOR SERVICE ASSISTANT [facility] Blood BLOOD SPECIMEN / Unknown Venipuncture / Unknown 08/19/2021 10:46 AM VISITOR SERVICE ASSISTANT 08/19/2021 10:46 AM VISITOR SERVICE ASSISTANT Narrative [facility] - 08/19/2021 11:25 AM VISITOR SERVICE ASSISTANT hCG Reference Range, mIU/mL: Males 0-2.0 Non [...] MD LAB - CHEMISTRY ORDERABLES Final Result [facility] [address] [id number] documented in this encounter Visit Diagnoses Not on filedocumented in this encounter Care Teams Neurological Surgery Teacher Relationship Specialty Start Date End Date Beata Orta MD [address] [place] [address] PCP - General Family Medicine 07/02/21 documented as of this encounter
--- OUTSIDE RECORDS SUMMARY | 2025-08-29 20:44 | XMS_ITS | Clinical Summary ---
Author Organization [facility] Address [address] [place] [address] Care Team Providers Care Surgical Elastic Knitter Hand Frame Name Role Phone Sly Rasheed MD Primary [...] Every 3 Years 1995 Annual Physical 1998 Cervical Cancer Screening Pap with HPV Testing (Age 30 to 64) Every 5 Years 2025 Cervical Cancer Screening with HPV 2025 COVID-19 Vaccine ( season) 2025 09/17/2021, 12/30/2020 Influenza Adult (#1) 2025 DTaP, Tdap and Td Vaccines (8 - Td or Tdap) 07/02/2032 07/02/2022, 03/18/2009, 02/09/2000, Additional history exists Hepatitis B Vaccines Completed 1995, 1995, 1995 HPV Vaccines Completed 09/26/2009, 09/0 09/2008, 03/18/2009 Meningococcal Vaccine Completed 04/27/2013, 009 Hepatitis C Completed 04/03/2024 Hepatitis A Vaccines Aged Out No long er eligible based on patient's age to complete this topic Meningococcal B Vaccine Aged Out No l [...] VE NON-REACTI VE 04/03/2024 8:17 PM CDT [facility] HEP B CORE IGM NON-REACTI VE NON-REACTI VE 04/03/2024 11:53 PM CDT [facility] HAV IGM NON-REACTI VE NON-REACTI VE 04/03/2024 11:53 PM CDT [facility] HEPATITIS C AB NON-REACTI VE NON-REACTI VE 04/03/2024 11:53 PM CDT [facility] 04/03/2024 6:54 PM CDT us Rachana Diaz MD LABORATORY Final Resul t [facility] [address] [place] [address], from Last 3 Months or Most Recently Relevant to Health Maintenance Insurance [facility] Care Teams Surgical Elastic Knitter Hand Frame Relationship Specialty Start Date End Date Sly Rasheed MD [address] [place] [address] PCP - General FAMILY PRACTICE 04/03/24
--- OUTSIDE RECORDS SUMMARY | 2025-08-29 20:44 | XMS_ITS | Encounter Summary ---
Author Organization [facility] Address [address] [place] [address] Care Team Providers Care Naval Gunfire Liaison Officer Name Role Phone Erica Laura MD Primary Care Provider Unavailable Sly Rasheed MD Primary Care Provider Encounter Details Date Type Department Care Team (Late st Contact Info) Description 07/24/2017 Abstract [place] [address] Erica Laura MD Social History Tobacco Use [...] on filedocumented in this encounter Care Teams Naval Gunfire Liaison Officer Relationship Specialty Start Date End Date Erica Laura MD PCP - General 05/30/14 Sly Rasheed MD [address] [place] [address] PCP - General FAMILY PRACTICE 04/03/24 documented as of this encounter
== END 2025-08-29 18:46 | disposition home or self-care (01) ==
PROVIDERS: Emergency Medicine; Emergency Provider Emergency Medicine
DX: R55 Syncope and collapse (principal); E66.3 Overweight; Z68.28 Body mass index [BMI] 28.0-28.9, adult; Z77.22 Contact with and (suspected) exposure to environmental tobacco smoke (acute) (chronic); R00.1 Bradycardia, unspecified; I45.10 Unspecified right bundle-branch block; R94.31 Abnormal electrocardiogram [ECG] [EKG]
CPT/HCPCS: 36415; 71046; 80053; 81025; 82948; 83036; 84484; 85025; 85610; 85730; 93005; 96360; 99284; A9270; J7030

== ENCOUNTER 2025-09-03 11:45 | Outpatient (CLI) | payer OTHER, SELFPAY ==
[2025-09-03 18:56] LABS: Alanine Aminotransferase 24 U/L (6-35); Albumin Level 4.4 g/dL (3.5-5.1); Alkaline Phosphatase 52 U/L (38-126); Anion Gap 3 mmol/L (4-12); Aspartate Amino Transferase 39 U/L (14-36); Bilirubin,Total 0.4 mg/dL (0.2-1.3); Blood Urea Nitrogen 13 mg/dL (7-17); Calcium 9.6 mg/dL (8.4-10.2); Carbon Dioxide 29 mmol/L (22-30); Chloride 107 mmol/L (98-107); Estimated Glomerular Filt Rate > 60; Glucose 83 mg/dL (65-110); Magnesium 2.2 mg/dL (1.6-2.3); Potassium 4.2 mmol/L (3.4-5.0); Sodium 139 mmol/L (137-145); Total Protein 7.6 g/dL (6.3-8.2)
[2025-09-03 18:59] LABS: Iron 21 ug/dL (37-170)
[2025-09-03 19:13] LABS: Percent Iron Saturation 5 % (20-50)
[2025-09-03 19:34] LABS: Thyroid Stimulating Hormone Reflex 1.390 uIU/mL (0.465-4.68)
[2025-09-03 19:44] LABS: Ferritin 6.55 ng/mL (6.24-137)
[2025-09-03 19:50] LABS: Vitamin B12 404.0 pg/mL (239-931)
== END 2025-09-03 11:46 | disposition home or self-care (01) ==
LOC: ANHGOSHLAB 11:46
PROVIDERS: PCP Nurse Practitioner Family; Visit Provider Nurse Practitioner Family
DX: E55.9 Vitamin D deficiency, unspecified (principal); R06.02 Shortness of breath; R53.83 Other fatigue; R00.2 Palpitations; R42 Dizziness and giddiness
CPT/HCPCS: 36415; 80053; 82306; 82607; 82728; 83540; 83550; 83735; 84443

== ENCOUNTER 2025-09-07 14:54 | Outpatient (CLI) | payer OTHER, SELFPAY ==
--- OUTSIDE RECORDS SUMMARY | 2016-01-29 08:45 | XMS_ITS | Continuity of Care Document ---
Author Organization [facility] Address [address] [place] [address] Phone Care Team Providers Care Magistrate Name Role Phone Jacobo Roberson MD Unavailable Unavailable Allergies, Adverse Reactions, Alerts Substance Reaction Status Criticality No Known Allergies Active No Inform ation Medications Medication Instructions Dosage Effective Dates (start - stop) Status Comments Ultram 50 mg tablet take 1 tablet by oral route every 4 hours as needed - No Longer Active Procedures Procedure Date RADEX KNE 3 VIEWS OFFICE/OUTPATIENT VISIT EST OFFICE/OUTPATIENT VISIT EST OFFICE/OUTPATIENT VISIT EST OFFICE/OUTPATIENT VISIT EST OFFICE/OUTPATIENT VISIT EST OFFICE/OUTPATIENT VISIT NEW Advance Directives Directive Yes / No Effective Date File Name No Information Encounters Encounter Description Practice Location Reason(s) For Visit Diagnoses Date Provider Providers Copied on Encounter OFFICE/OUTPAT IENT VISIT EST [facility] , [address] [facility] [address], [place], [address], [place] tel:[phone] [facility] Pain, joint, knee, right 6 Karol Centeno. [address], [place], [place], [id number] . tel: [phone] OFFICE/OUTPAT IENT VISIT EST [facility] , [address], [place], [address], [place] [phone] [facility] TFCC (triangular fibrocartilage complex) tear May-2 9-201 5 Kutnik Aly. [address], [place], [place], [id number] . tel: [phone] OFFICE/OUTPAT IENT VISIT EST [facility] , [address], [place], [address], [place] tel:[phone] [facility] TFCC (triangular fibrocartilage complex) tear Apr-2 2-201 5 Robertotvera Cervanteswn. [address], [place], [place], [id number] . tel: [phone] OFFICE/OUTPAT IENT VISIT EST [facility] , [address] [facility] [address], [place], [address], [place] tel:[phone] [facility] Wrist pain, left Apr- 5-201 5 Kutnik Aly. [address], [place], [place], [id number] . tel: [phone] [facility] , [address], [place], [address], [place] tel:[phone] [facility] No Information Nov-2 6-201 5 Sanya Berumenn. [address], [place], [place], [id number] . tel: [phone] OFFICE/OUTPAT IENT VISIT EST [facility] , [address] [facility] [address] [facility] [facility] [address], [place], [address], [place] tel:[phone] [facility] Wrist contusion Nov-1 8-201 5 Kutnik Aly. [address], [place], [place], [id number] . tel: [phone] OFFICE/OUTPAT IENT VISIT NEW [facility] , [address], [place], [address], [place] tel:[phone] [facility] Wrist contusion Feb-2 0-201 5 Kutvera Cervanteswn. [address], [place], [place], [id number] . tel: [phone] Referring Provider: Vance Broussard, [address], [place], [address] . tel:[phone] Family History Family Member Type Diagnosis Age At Onset Father Problem (finding) Alive and well Mother Problem (finding) Alive and well Payers Payer name Insurance type Covered republican ID Torrey kwok(s) Blue Access PPO E2 OT [id number] Social History Type Description Quantity Date Captured Comments Alcohol Use Details No Caffeine Use Details Unknown Tobacco Use Status No Information Smoking Status No Information Sex Female Vital Signs Date / Time: Height Weight BMI Pulse Rate Blood Pressure Temperature Respiratory Rate Body Surface Area Head Circumference Head Circ. Percentile Wt./Carlos. Percentile BMI percentile Pulse Ox Inhaled Ox 3:32 PM 62.00 in 56.699 kg (125.00 lbs) 22.8 6 kg/m eter (2) 106/70 mm[Hg] Chief Complaint And Reason For Visit No Information Reason For Referral Reason For Referral No Information Plan Of Treatment Date Type Action Status Referral Ordered: RADEX KNE 3 VIEWS RT ordered Referral Ordered: MRI ANY JT UXTR C+ MATRL LT wrist ordered Referral Ordered: RADEX WRST ARTHG RS&I LT wrist Appointment date/timeframe: 01/04/2015 ordered Referral Ordered: MRI ANY JT UXTR C-/C+ LT wrist Appointment date/timeframe: 01/04/2015 ordered Referral Ordered: RADEX HAND MINIMUM 3 VIEWS LT hand ordered Referral Ordered: RADEX WRST COMPL MINIMUM 3 VIEWS LT ordered History Of Present Illness Encounter Date Complaint History Of Prese nt Illness No Information Functional Status Date Functional Assessmen t No Information Instructions Date Instruction Additional Infor mation Rest, ice and elevate. Related t o Pain, joint, knee, right Call for increase in pain Relate d to Pain, joint, knee, right Report increased hernan n, swelling, numbness or discoloration. Related to TFCC (triangular fibrocartilage complex) tear Use as directed Related to TFCC (triangular fibrocartilage complex) tear Cast/splint care given. Related to TFCC (triangular fibrocartilage complex) tear Report increased hernan n, swelling, numbness or discoloration. Related to TFCC (triangular fibrocartilage complex) tear Weight bearing status as directe d. Related to Wrist pain, left Discussed treatment options Rela lynnette to Wrist pain, left Assessments Type Assessment Date assessment Pain, joint, knee, right 2015 Patient Care Teams Name Effective Dates (start - stop) Status Members No Information
--- OUTSIDE RECORDS SUMMARY | 2025-09-07 14:58 | XMS_ITS | Encounter Summary ---
Author Organization [facility] Address [address] [facility] [place] [address] Care Team Providers Care Customer Operations Specialist Name Role Phone Beata Orta MD Primary Care Provider [phone] Encounter Details Date Type Department Care Team (Late st Contact Info) Description 08/19/2021 Lab Requisition [facility] [address] [place] [address] Jeanne Roque MD Social History Tobacco Use Types Packs/Day Years Used Date Smoking Tobacco: Never Assessed Comments Unknown Sex and Gender Information Value Date Recorded Sex Assigned at Not on file Legal Sex Female 3:35 PM SYSTEMS PROGRAM MANAGER Gender Identity Not on file Sexual Orientation Not on file documented as of this encounter Plan of Treatment Not on file documented as of this encounter Procedures Procedure Name Priority Date/Time Associated Diagnosis Comments HCG BETA BLOOD QUANTITATIVE STAT 08/19/2021 10:46 AM SYSTEMS PROGRAM MANAGER documented in this encounter Results * HCG BETA BLOOD QUANTITATIVE (08/19/2021 10:46 AM SYSTEMS PROGRAM MANAGER) hCG Quantitative <1.20 mIU/mL 08/19/20 11:25 AM SYSTEMS PROGRAM MANAGER [facility] Blood BLOOD SPECIMEN / Unknown Venipuncture / Unknown 08/19/2021 10:46 AM SYSTEMS PROGRAM MANAGER 08/19/2021 10:46 AM SYSTEMS PROGRAM MANAGER Narrative [facility] - 08/19/2021 11:25 AM SYSTEMS PROGRAM MANAGER hCG Reference Range, mIU/mL: Males 0-2.0 Non [...] MD LAB - CHEMISTRY ORDERABLES Final Result [facility] [address] [phone] documented in this encounter Visit Diagnoses Not on filedocumented in this encounter Care Teams Customer Operations Specialist Relationship Specialty Start Date End Date Beata Orta MD [address] [place] [address] PCP - General Family Medicine 07/02/21 documented as of this encounter
--- OUTSIDE RECORDS SUMMARY | 2025-09-07 14:58 | XMS_ITS | Clinical Summary ---
Author Organization [facility] Address [address] [place] [address] Care Team Providers Care Academic Affairs Manager Name Role Phone Sly Rasheed MD [...] VE NON-REACTI VE 04/03/2024 8:17 PM CDT [facility] HEP B CORE IGM NON-REACTI VE NON-REACTI VE 04/03/2024 11:53 PM CDT [facility] HAV IGM NON-REACTI VE NON-REACTI VE 04/03/2024 11:53 PM CDT [facility] HEPATITIS C AB NON-REACTI VE NON-REACTI VE 04/03/2024 11:53 PM CDT [facility] 04/03/2024 6:54 PM CDT us Rachana Diaz MD LABORATORY Final Resul t [facility] [address] [place] [address], from Last 3 Months or Most Recently Relevant to Health Maintenance Insurance [facility] Care Teams Academic Affairs Manager Relationship Specialty Start Date End Date Sly Rasheed MD [address] [place] [address] PCP - General FAMILY PRACTICE 04/03/24
--- OUTSIDE RECORDS SUMMARY | 2025-09-07 14:58 | XMS_ITS | Clinical Summary ---
Author Organization [facility] [address] [place] [address] Care Team Providers Care Billing Associate Name Role Phone JadonJeanne gordon Janice ORDONEZ Primary Care Provider [phone] Allergies No known active allergies Medications SUMAtriptan [...] Department Care Team Description 08/26/2025 Orders Only [facility] Rheumatology at [facility] [address] [address] Cathy Delaney MD 06/19/2025 Results Follow-Up [facility] Rheumatology at [facility] [address] [place] [address] Cathy Delaney MD BOX REPAIRER abs, Anti-double stranded DNA abs, Protein, urine, [...] on file Legal Sex Female 2:34 AM COMPLAINT MANAGER Gender Identity Female 10/01/2019 10:17 AM COMPLAINT MANAGER Sexual Orientation Straight 10/01/2019 10 :17 AM COMPLAINT MANAGER Occupation Industry Job Start Date Job [...] of 2 - 13+ 2-dose series) 2008 Regular Well Visit/Exam 18-64 2013 Covid-19 Vaccine (2024- season) 2025 09/17/2021, 12/30/2020 Influenza Vaccine (#1) 2025 DTaP/Tdap/Td Vaccine (8 - Td or Tdap) 07/02/2032 07/02/2022, 03/18/2009, 02/09/2000, Additional history exists Hepatitis B Screening Completed 1995 , 1995, 1995 HPV Vaccines Completed 09/26/2009, 09/2008, 03/18/2009 Pneumococcal vaccine <65 Aged Out No longer eligible based on patient's age to complete this topic Insurance [facility] CHOICE PL[facility] HMO/PPO Address: [place] [id number] [facility] CHOICE [facility] HMO/PPO Address: [place] [id number] Care Teams Billing Associate Relationship Specialty Start Date End Date Jeanne Diop NP [address] [place] [address] PCP - General Family Medicine 09/04/25
--- OUTSIDE RECORDS SUMMARY | 2025-09-07 14:58 | XMS_ITS | Clinical Summary ---
Author Organization [facility] Address [address] [facility] [place] [address] Care Team Providers Care Public Service Director Name Role Phone Beata Orta MD Primary Care Provider [phone] Source Comments [facility] Affiliates and Associated Physician Practices is amultiple site organization consisting of ambulatory clinics and hospital sitesin [place], [place], [place] and [place]. This disclosure is being madepursuant to the Care Everywhere program and may not contain all information available regarding this patient. Last updated 18.[facility] Allergies No known active allergies Social History Tobacco Use Types Packs/Day Years Used Date Smoking Tobacco: Never Assessed Comments Unknown Sex and Gender Information Value Date Recorded Sex Assigned at Not on file Legal Sex Female 3:35 PM CHOIR LEADER Gender Identity Not on file Sexual Orientation [...] to complete this topic Insurance [facility] SELF PAY NO INSURANCE Member Subscriber Plan / Payer (Ef fective for All Dates) Name:Natalia Weiss R Member ID:Not on file Relation to Subscriber:Not on file Name:NATALIA BONILLA Subscriber ID:Not on file (Home) Address: [address] [place] [address] Payer ID:Not on file Group ID:Not on file Type:Self Pay Address: [facility] * Guarantor: NATALIA WEISS Account Type Relation to Patient Date of Phone Billing Address Personal/Family Spouse Care Teams Public Service Director Relationship Specialty Start Date End Date Beata Orta MD [address] [place] [address] PCP - General Family Medicine 07/02/21
--- NOTE | 2025-09-25 12:31 | WPDHOLTEREM ---
Holter/Event Monitor Holter/Event Monitor Date of procedure: 09/07/25 Holter/Event Procedure: 3-7 Day Holter Monitor Indications: Palpitations Conclusion: 1. 5 days holter monitor on 09/07/25. 2. Underlying rhythm is sinus rhythm. HR range 35-198 bpm; average HR 71 bpm. HR at 35 bpm was on 09/10/25 at 5:44 am. HR at 198 bpm was on 09/11/25 at 2:40 pm. 3. There are rare premature supraventricular complexes. No supraventricular tachycardia. 4. There are rare premature ventricular complexes and rare ventricular couplets. No ventricular tachycardia. 5. No significant pauses greater than 3 seconds. 6. Patient reports 5 episodes of symptoms of irregular beats, dizziness, chest pain, shortness of breath which demonstrate sinus rhythm, HR range 51-101 bpm.
== END 2025-09-07 14:55 | disposition home or self-care (01) ==
LOC: ANHCARD 14:56
PROVIDERS: PCP Nurse Practitioner Family; Visit Provider Nurse Practitioner Family
DX: I49.1 Atrial premature depolarization (principal); I49.3 Ventricular premature depolarization
CPT/HCPCS: 93242